=== PATIENT | female | born 1990 | race Caucasian/White ===

== ENCOUNTER 2016-08-13 16:58 | Inpatient (IN) | payer MEDICAID, OTHER, SELFPAY ==
[~2016-08-13] VITALS: Ht 157.5 cm; Wt 70.3 kg
[~2016-08-13 16:58] MED LIST: BUPR15TAXL PO; LEVO50TA5 PO; LEXA1TAB PO; TRAZ50TA4 PO
[2016-08-13 17:43] LABS: MEAN CORPUSCULAR HEMOGLOBIN 28.7 pg (27.0-33.0); MEAN CORPUSCULAR VOLUME 84.3 fl (80.0-96.0); RED CELL DISTRIBUTION WIDTH 13.2 % (11.5-14.5); WHITE BLOOD COUNT 6.2 K/mm3 (4.0-10.0)
[2016-08-13 17:56] LABS: CONTROL LINE HCG INT CTR LINE PRESENT
[2016-08-13 18:12] LABS: ALBUMIN 3.5 GM/DL (3.2-5.2); ALBUMIN/GLOBULIN RATIO 1.03 (1.00-1.93); ALKALINE PHOSPHATASE 73 U/L (45-117); ALT/SGPT 26 U/L (12-78); ANION GAP 9 MEQ/L (8-16); AST/SGOT 20 U/L (15-37); BILIRUBIN,DIRECT < 0.1 MG/DL (0.0-0.2); BILIRUBIN,TOTAL 0.4 MG/DL (0.2-1.0); BLOOD UREA NITROGEN 8 MG/DL (7-18); CALCIUM LEVEL 8.2 MG/DL (8.5-10.1); CARBON DIOXIDE LEVEL 27 MEQ/L (21-32); CHLORIDE LEVEL 105 MEQ/L (98-107); CREATININE FOR GFR 0.96 MG/DL (0.55-1.02); GLOMERULAR FILTRATION RATE > 60.0 (>60); GLUCOSE, FASTING 112 MG/DL (70-105); POTASSIUM SERUM 3.3 MEQ/L (3.5-5.1); SODIUM LEVEL 141 MEQ/L (136-145); TOTAL PROTEIN 6.9 GM/DL (6.4-8.2)
[2016-08-13] MEDS ORDERED: POTASSIUM CHL PWD 20 MEQ PACKET As Ordered ONE (18:48)
[2016-08-13 20:44] LABS: AMPHETAMINES LEVEL URINE POSITIVE (NEGATIVE); BENZODIAZEPINES URINE POSITIVE (NEGATIVE)
[2016-08-13 20:45] LABS: COCAINE METABOLITE URINE POSITIVE (NEGATIVE); CONTROL LINE INT CTR LINE PRESENT; METHADONE URINE NEGATIVE (NEGATIVE); OPIATES URINE POSITIVE (NEGATIVE); TRICYCLIC ANTIDEPRESS URINE NEGATIVE (NEGATIVE)
[2016-08-14] MEDS ORDERED: traZODone 50 MG TAB PO PRN ×2 (02:00→09:30)
[2016-08-14] MEDS ORDERED: MAALOX 30 ML SUSP *UDC PO PRN (02:00)
[2016-08-14] MEDS ORDERED: MOM 30ML SUSPENSION UDC PO PRN (02:00)
[2016-08-14] MEDS ORDERED: EFFE75CA75 PO (03:04)
[2016-08-14] MEDS ORDERED: ZYPR10TA PO (03:04)
[2016-08-14] MEDS ORDERED: EFFE37.527 PO (03:04)
[2016-08-14] MEDS ORDERED: REME15TA PO (03:04)
[2016-08-14] MEDS ORDERED: SYNT50TA PO (03:04)
[2016-08-14] MEDS ORDERED: MIRA0.254 PO (03:04)
[2016-08-14] MEDS ORDERED: BUSP15TA47 PO (03:04)
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
--- NOTE | 2016-08-14 03:06 | EDDOCDS ---
Physician Documentation [facility] Name: Shell Hay Age: 25 yrs Sex: Female : 1990 Arrival Date: 08/13/2016 Time: 16:58 Bed OBSERVATION Private MD: Disposition: 08/13 18:55 I have independently interviewed and examined the patient, and I agree with the br1 investigation, diagnosis and treatment plan as documented by the Resident. Disposition: 08/14/16 02:19 Hospitalization ordered by Don Gibbons for Inpatient Admission. Preliminary diagnosis is Suicide attempt. - Bed requested for Admit. - Status is Inpatient Admission. rw1 - Condition is Stable. - Problem is an ongoing problem. - Symptoms have improved. Historical: - Allergies: Diflucan PO; - Home Meds: 1. Effexor Oral Unknown daily has not taken x 1 week 2. Hydroxyzine Oral Unknown has not taken x 1 week 3. BuSpar Oral Unknown has not taken x 1 week 4. Gabapentin Oral Unknown has not taken x 1 5. Zyprexa Oral Unknown has not taken x 1 week 6. Remeron Oral has not taken x 1 week 7. Mirapex Oral Unknown has not taken x 1 week 8. Levothyroxine Oral Unknown has not taken x 1 week - PMHx: Hypothyroidism; - PSHx: Tonsillectomy; Tubes in ears; - Social history: Smoking status: Patient uses tobacco products, heavy tobacco smoker. Patient uses street drugs, cocaine, heroin, benzos, No barriers to communication noted, The patient speaks fluent Argentine, Speaks appropriately for age. - Family history: Not pertinent. - : The pt / caregiver states he / she is not on anticoagulants. Unable to Verify Home Med List with the patient / caregiver. - Exposure Risk Screening:: None identified. LEGAL ANALYST: 17:08 LMP 06/24/2016 pml Vital Signs: 16:57 BP 122 / 81 (auto/); jul 17:00 BP 114 / 80 (auto/); jul 17:00 Pulse 87 MON; Pulse Ox 99% ; jul 17:01 Pulse 86 MON; Pulse Ox 99% ; jul 17:08 BP 122 / 81; Pulse 83; Resp 18; Pulse Ox 99% on R/A; Weight 68.04 kg / 150 lbs; Height pml 5 ft. 2 in. (157.48 cm); 17:15 BP 106 / 65 (auto/); jul 17:16 Pulse 76 MON; Pulse Ox 98% ; jul 17:30 BP 105 / 74 (auto/); hs1 17:30 Pulse 72 MON; Pulse Ox 96% ; hs1 17:45 BP 101 / 64 (auto/); hs1 17:45 Pulse 74 MON; Pulse Ox 97% ; hs1 18:00 BP 97 / 65 (auto/); hs1 18:00 Pulse 69 MON; Temp 96.8(O); Pulse Ox 97% ; hs1 18:15 BP 95 / 62 (auto/); hs1 18:15 Pulse 71 MON; Pulse Ox 98% ; hs1 18:29 Pulse 71 MON; Pulse Ox 98% ; hs1 18:30 BP 93 / 63 (auto/); hs1 18:45 BP 93 / 55 (auto/); hs1 18:46 Pulse 63 MON; Resp 18; Pulse Ox 98% ; Pain 0/10; hs1 19:00 BP 106 / 77 (auto/); ko2 19:00 Pulse 80 MON; Pulse Ox 96% ; ko2 19:15 BP 88 / 55 (auto/); ko2 19:15 Pulse 78 MON; Pulse Ox 98% ; ko2 19:30 BP 90 / 70 (auto/); ko2 19:30 Pulse 70 MON; Pulse Ox 86% ; ko2 20:00 BP 111 / 64 (auto/); ko2 20:00 Pulse Ox 99% ; ko2 20:15 BP 100 / 55 (auto/); ko2 20:15 Pulse 81 MON; Pulse Ox 100% ; ko2 20:30 BP 101 / 57 (auto/); ko2 20:31 Pulse 92 MON; Pulse Ox 99% ; ko2 20:45 BP 95 / 53 (auto/); ko2 20:46 Pulse 96 MON; Pulse Ox 98% ; ko2 21:00 BP 97 / 50 (auto/); ko2 21:01 Pulse 96 MON; Pulse Ox 98% ; ko2 21:14 Pulse 94 MON; Pulse Ox 98% ; ko2 21:15 BP 139 / 70 (auto/); ko2 21:32 BP 112 / 55 (auto/); ko2 21:33 Pulse 85 MON; Pulse Ox 97% ; ko2 21:45 BP 96 / 53 (auto/); ko2 21:45 Pulse 81 MON; Pulse Ox 99% ; ko2 22:00 BP 90 / 51 (auto/); ko2 22:00 Pulse 90 MON; Pulse Ox 97% ; ko2 22:15 BP 94 / 52 (auto/); ko2 22:16 Pulse 96 MON; Pulse Ox 97% ; ko2 22:30 BP 93 / 50 (auto/); ko2 22:31 Pulse 93 MON; Pulse Ox 97% ; ko2 22:45 BP 96 / 52 (auto/); ko2 22:45 Pulse 92 MON; Pulse Ox 97% ; ko2 23:00 BP 84 / 52 (auto/); ko2 23:01 Pulse 87 MON; Pulse Ox 96% ; ko2 23:15 BP 93 / 51 (auto/); ko2 23:16 Pulse 84 MON; Pulse Ox 97% ; ko2 23:30 BP 93 / 51 (auto/); ko2 23:30 Pulse 90 MON; Pulse Ox 97% ; ko2 23:45 BP 90 / 52 (auto/); ko2 23:45 Pulse 90 MON; Pulse Ox 96% ; ko2 08/14 00:00 BP 88 / 53 (auto/); ko2 00:00 Pulse 85 MON; Pulse Ox 96% ; ko2 00:28 Pulse 83 MON; ko2 00:29 BP 100 / 59 (auto/); ko2 02:51 BP 115 / 65 Sitting; Pulse 89; Resp 16; Temp 97.7(O); Pulse Ox 98% on R/A; Pain 0/10; rw1 08/13 17:08 Body Mass Index 27.44 (68.04 kg, 157.48 cm) pml MDM: 08/13 17:04 Consult PFS/PSA/Office Admin ordered. br1 17:04 Consult PFS/PSA/Office Admin: Patient's case requires discussion with on-call br1 Psychiatrist ordered. 17:04 PSA/PFS to call Nursing Ticket Sorter, to [place] data [place] if patient br1 involuntarily admitted or transferred for SI or HI ordered. 17:04 Wire Drawing Setter/Pulse Ox/q 15 min VS ordered. br1 17:04 Confirm accurate psychiatric medication list and times of last dosage ordered. br1 17:04 Detain Pt Until Medically/PFS Cleared ordered. br1 17:04 IV Saline Lock ordered. br1 17:05 Acetaminophen Level Ordered. EDMS 17:05 Basic Metabolic Profile Ordered. EDMS 17:05 Complete Blood Count Ordered. EDMS 17:05 Drug Eval Toxicology ED Only Ordered. EDMS 17:05 Ethyl Alcohol (ethanol) Ordered. EDMS 17:05 HCG,Serum Qualitative Ordered. EDMS 17:05 Liver Profile Ordered. EDMS 17:05 Salicylate Level Ordered. EDMS 17:05 Thyroid Stimulating Hormone Ordered. EDMS 17:05 ECG WITH READING ER PHYS+CARDIAG ordered. EDMS 17:43 Call Poison Control ordered. br1 17:57 Complete Blood Count Reviewed. jo4 18:07 HCG,Serum Qualitative Reviewed. jo4 18:14 Acetaminophen Level Reviewed. jo4 18:14 Basic Metabolic Profile Reviewed. jo4 18:14 Salicylate Level Reviewed. jo4 18:14 Thyroid Stimulating Hormone Reviewed. jo4 18:14 Ethyl Alcohol (ethanol) Reviewed. jo4 18:14 HCG,Serum Qualitative Reviewed. jo4 18:14 Liver Profile Reviewed. jo4 18:18 Potassium Chloride Packet 40 mEq PO once ordered. jo4 18:18 NS 0.9% 1000 ml IV at bolus once ordered. jo4 19:18 Transition of care: After a detail discussion of the patient's case, care is br1 transferred to ED Physician, Dr. Li. 22:42 [facility] Payment Agreement was scanned into [employer] and attached to record. jp5 22:42 Financial registration complete. jp5 22:50 Drug Eval Toxicology ED Only Reviewed. cs11 08/14 01:11 [facility] Legal paperwork was scanned into [employer] and attached to record. jfb 01:46 Consult PFS/PSA/Office Admin complete. jfb 01:46 Consult PFS/PSA/Office Admin: Patient's case requires discussion with on-call jfb Psychiatrist complete. 01:46 PSA/PFS to call Nursing Ticket Sorter, to [place] if patient jfb involuntarily admitted or transferred for SI or HI complete. 02:06 Admit to [facility]: ordered. EDMS 02:06 REGULAR DIET ordered. EDMS 02:13 BED REQUEST+ADM ordered. EDMS 02:50 [facility] Legal paperwork was scanned into [employer] and attached to record. rw1 Administered Medications: 08/13 18:52 Drug: NS 0.9% 1000 ml [sodium chloride 0.9 % intravenous solution] Route: IV; Rate: hs1 bolus; Site: left forearm; 08/14 01:49 Follow up: IV Status: Completed infusion rw1 08/13 18:53 Drug: Potassium Chloride 40 mEq [potassium chloride 20 mEq oral packet (2 packets)] hs1 Route: PO; 08/14 01:50 Follow up: Response: No Adverse Reaction rw1 Signatures: Dispatcher MedHost EDUsha Adams RN RN Rudy Wing,GARAGE DOOR TECHNICIAN GARAGE DOOR TECHNICIAN rw1 Ric Alcaraz MD MD br1 Radha Jacobs PSA PSA Bambi FarrellRN RN Brodie Lynn DO DO cs11 Jennifer Adamson jp5 Tish Pickett DO DO jo4 Kristi Alcantara RN hs1 The chart was reviewed and I authenticate all verbal orders and agree with the evaluation and treatment provided.Attachments: 08/13 22:42 [facility] Payment Agreement jp5 MTDD
[2016-08-14 03:11] VITALS: BP 100/58
--- NOTE | 2016-08-14 08:13 | ECGEPIP ---
Stationary ECG Study [facility] - ED Test Date: 2016-08-13 Pat Name: KALI OMALLEY Department: Room: [place] [address] Gender: F Sales Operations Specialist: nyla : 1990 Requested By: SARA Lange Order Number: [id number] Reading MD: Carmela Pires Measurements Intervals [place] Rate: 59 P: 16 [place]: 130 QRS: 80 QRSD: 88 T: 35 QT: 412 QTc: 410 Interpretive Statements SINUS BRADYCARDIA DECREASED RATE 02/20/14 Electronically Signed On 08-14-2016 8:12:53 EST by Carmela Pires
[2016-08-14] MEDS: NICOTINE 21MG/24HR 1 EA TRANSDERMAL TD SCH (09:00)
[2016-08-14] MEDS ORDERED: CitaloPRAM (CeleXA) 10 MG TABLET PO ONE (10:00)
[2016-08-14] MEDS: METHADONE 10 MG TAB (S0109) PO SCH ×2 (10:01→21:00)
[2016-08-14] MEDS: chlordiazePOXIDE 25 MG CAP PO SCH ×3 (10:01→21:00)
[2016-08-14] MEDS: VENLAFAXINE **XR** 37.5 MG CAPSULE PO SCH (12:49)
[2016-08-14 18:00] VITALS: BP 114/59
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
[2016-08-15 06:06] VITALS: BP 92/50
[2016-08-15] MEDS: GABAPENTIN 300 MG CAP PO SCH ×3 (09:00→21:35)
[2016-08-15] MEDS ORDERED: CitaloPRAM (CeleXA) 20 MG TAB PO SCH (09:00)
[2016-08-15] MEDS: NICOTINE 21MG/24HR 1 EA TRANSDERMAL TD SCH (09:00)
[2016-08-15] MEDS: METHADONE 10 MG TAB (S0109) PO SCH ×2 (09:38→21:37)
[2016-08-15] MEDS: chlordiazePOXIDE 25 MG CAP PO SCH ×3 (09:38→21:35)
[2016-08-15] MEDS: VENLAFAXINE **XR** 37.5 MG CAPSULE PO SCH (09:38)
[2016-08-15] MEDS: busPIRone 10 MG TAB PO SCH ×2 (14:11→21:35)
[2016-08-15 18:00] VITALS: BP 100/52
[2016-08-15] MEDS: MIRTAZAPINE 15 MG TAB PO SCH (21:35)
[2016-08-15] MEDS: OLANZapine 10 MG TAB PO SCH (21:35)
--- NOTE | 2016-08-16 04:05 | EDDOCDS ---
Physician Documentation [facility] Name: Shell Hay Age: 25 yrs Sex: Female : 1990 Arrival Date: 08/13/2016 Time: 16:58 Bed OBSERVATION Private MD: Disposition: 08/13 18:55 I have independently interviewed and examined the patient, and I agree with the br1 investigation, diagnosis and treatment plan as documented by the Resident. Disposition: 08/14/16 02:19 Hospitalization ordered by Don Gibbons for Inpatient Admission. Preliminary diagnosis is Suicide attempt. - Bed requested for Admit. - Status is Inpatient Admission. rw1 - Condition is Stable. - Problem is an ongoing problem. - Symptoms have improved. Historical: - Allergies: Diflucan PO; - Home Meds: 1. Effexor Oral Unknown daily has not taken x 1 week 2. Hydroxyzine Oral Unknown has not taken x 1 week 3. BuSpar Oral Unknown has not taken x 1 week 4. Gabapentin Oral Unknown has not taken x 1 5. Zyprexa Oral Unknown has not taken x 1 week 6. Remeron Oral has not taken x 1 week 7. Mirapex Oral Unknown has not taken x 1 week 8. Levothyroxine Oral Unknown has not taken x 1 week - PMHx: Hypothyroidism; - PSHx: Tonsillectomy; Tubes in ears; - Social history: Smoking status: Patient uses tobacco products, heavy tobacco smoker. Patient uses street drugs, cocaine, heroin, benzos, No barriers to communication noted, The patient speaks fluent Canadian, Speaks appropriately for age. - Family history: Not pertinent. - : The pt / caregiver states he / she is not on anticoagulants. Unable to Verify Home Med List with the patient / caregiver. - Exposure Risk Screening:: None identified. CO FOUNDER AND CHAIRMAN: 17:08 LMP 06/24/2016 pml Vital Signs: 16:57 BP 122 / 81 (auto/); jul 17:00 BP 114 / 80 (auto/); jul 17:00 Pulse 87 MON; Pulse Ox 99% ; jul 17:01 Pulse 86 MON; Pulse Ox 99% ; jul 17:08 BP 122 / 81; Pulse 83; Resp 18; Pulse Ox 99% on R/A; Weight 68.04 kg / 150 lbs; Height pml 5 ft. 2 in. (157.48 cm); 17:15 BP 106 / 65 (auto/); jul 17:16 Pulse 76 MON; Pulse Ox 98% ; jul 17:30 BP 105 / 74 (auto/); hs1 17:30 Pulse 72 MON; Pulse Ox 96% ; hs1 17:45 BP 101 / 64 (auto/); hs1 17:45 Pulse 74 MON; Pulse Ox 97% ; hs1 18:00 BP 97 / 65 (auto/); hs1 18:00 Pulse 69 MON; Temp 96.8(O); Pulse Ox 97% ; hs1 18:15 BP 95 / 62 (auto/); hs1 18:15 Pulse 71 MON; Pulse Ox 98% ; hs1 18:29 Pulse 71 MON; Pulse Ox 98% ; hs1 18:30 BP 93 / 63 (auto/); hs1 18:45 BP 93 / 55 (auto/); hs1 18:46 Pulse 63 MON; Resp 18; Pulse Ox 98% ; Pain 0/10; hs1 19:00 BP 106 / 77 (auto/); ko2 19:00 Pulse 80 MON; Pulse Ox 96% ; ko2 19:15 BP 88 / 55 (auto/); ko2 19:15 Pulse 78 MON; Pulse Ox 98% ; ko2 19:30 BP 90 / 70 (auto/); ko2 19:30 Pulse 70 MON; Pulse Ox 86% ; ko2 20:00 BP 111 / 64 (auto/); ko2 20:00 Pulse Ox 99% ; ko2 20:15 BP 100 / 55 (auto/); ko2 20:15 Pulse 81 MON; Pulse Ox 100% ; ko2 20:30 BP 101 / 57 (auto/); ko2 20:31 Pulse 92 MON; Pulse Ox 99% ; ko2 20:45 BP 95 / 53 (auto/); ko2 20:46 Pulse 96 MON; Pulse Ox 98% ; ko2 21:00 BP 97 / 50 (auto/); ko2 21:01 Pulse 96 MON; Pulse Ox 98% ; ko2 21:14 Pulse 94 MON; Pulse Ox 98% ; ko2 21:15 BP 139 / 70 (auto/); ko2 21:32 BP 112 / 55 (auto/); ko2 21:33 Pulse 85 MON; Pulse Ox 97% ; ko2 21:45 BP 96 / 53 (auto/); ko2 21:45 Pulse 81 MON; Pulse Ox 99% ; ko2 22:00 BP 90 / 51 (auto/); ko2 22:00 Pulse 90 MON; Pulse Ox 97% ; ko2 22:15 BP 94 / 52 (auto/); ko2 22:16 Pulse 96 MON; Pulse Ox 97% ; ko2 22:30 BP 93 / 50 (auto/); ko2 22:31 Pulse 93 MON; Pulse Ox 97% ; ko2 22:45 BP 96 / 52 (auto/); ko2 22:45 Pulse 92 MON; Pulse Ox 97% ; ko2 23:00 BP 84 / 52 (auto/); ko2 23:01 Pulse 87 MON; Pulse Ox 96% ; ko2 23:15 BP 93 / 51 (auto/); ko2 23:16 Pulse 84 MON; Pulse Ox 97% ; ko2 23:30 BP 93 / 51 (auto/); ko2 23:30 Pulse 90 MON; Pulse Ox 97% ; ko2 23:45 BP 90 / 52 (auto/); ko2 23:45 Pulse 90 MON; Pulse Ox 96% ; ko2 08/14 00:00 BP 88 / 53 (auto/); ko2 00:00 Pulse 85 MON; Pulse Ox 96% ; ko2 00:28 Pulse 83 MON; ko2 00:29 BP 100 / 59 (auto/); ko2 02:51 BP 115 / 65 Sitting; Pulse 89; Resp 16; Temp 97.7(O); Pulse Ox 98% on R/A; Pain 0/10; rw1 08/13 17:08 Body Mass Index 27.44 (68.04 kg, 157.48 cm) pml MDM: 08/13 17:04 Consult PFS/PSA/Patternmaker Plaster ordered. br1 17:04 Consult PFS/PSA/Patternmaker Plaster: Patient's case requires discussion with on-call br1 Psychiatrist ordered. 17:04 PSA/PFS to call Nursing Turfgrass Management Professor, to enter [place] data [place] if patient br1 involuntarily admitted or transferred for SI or HI ordered. 17:04 Commercial Production Editor/Pulse Ox/q 15 min VS ordered. br1 17:04 Confirm accurate psychiatric medication list and times of last dosage ordered. br1 17:04 Detain Pt Until Medically/PFS Cleared ordered. br1 17:04 IV Saline Lock ordered. br1 17:05 Acetaminophen Level Ordered. EDMS 17:05 Basic Metabolic Profile Ordered. EDMS 17:05 Complete Blood Count Ordered. EDMS 17:05 Drug Eval Toxicology ED Only Ordered. EDMS 17:05 Ethyl Alcohol (ethanol) Ordered. EDMS 17:05 HCG,Serum Qualitative Ordered. EDMS 17:05 Liver Profile Ordered. EDMS 17:05 Salicylate Level Ordered. EDMS 17:05 Thyroid Stimulating Hormone Ordered. EDMS 17:05 ECG WITH READING ER PHYS+CARDIAG ordered. EDMS 17:43 Call Poison Control ordered. br1 17:57 Complete Blood Count Reviewed. jo4 18:07 HCG,Serum Qualitative Reviewed. jo4 18:14 Acetaminophen Level Reviewed. jo4 18:14 Basic Metabolic Profile Reviewed. jo4 18:14 Salicylate Level Reviewed. jo4 18:14 Thyroid Stimulating Hormone Reviewed. jo4 18:14 Ethyl Alcohol (ethanol) Reviewed. jo4 18:14 HCG,Serum Qualitative Reviewed. jo4 18:14 Liver Profile Reviewed. jo4 18:18 Potassium Chloride Packet 40 mEq PO once ordered. jo4 18:18 NS 0.9% 1000 ml IV at bolus once ordered. jo4 19:18 Transition of care: After a detail discussion of the patient's case, care is br1 transferred to ED Physician, Dr. Li. 22:42 [facility] Payment Agreement was scanned into [employer] and attached to record. jp5 22:42 Financial registration complete. jp5 22:50 Drug Eval Toxicology ED Only Reviewed. cs11 08/14 01:11 [facility] Legal paperwork was scanned into [employer] and attached to record. jfb 01:46 Consult PFS/PSA/Patternmaker Plaster complete. jfb 01:46 Consult PFS/PSA/Patternmaker Plaster: Patient's case requires discussion with on-call jfb Psychiatrist complete. 01:46 PSA/PFS to call Nursing [place] Management Professor, to enter [place] if patient jfb involuntarily admitted or transferred for SI or HI complete. 02:06 Admit to IMHU: ordered. EDMS 02:06 REGULAR DIET ordered. EDMS 02:13 BED REQUEST+ADM ordered. EDMS 02:50 [facility] Legal paperwork was scanned into [employer] and attached to record. rw1 12:52 T-Sheet-- Draft Copy was scanned into [employer] and attached to record. gb 12:52 ECG/EKG was scanned into MEDHOST and attached to record. gb Administered Medications: 08/13 18:52 Drug: NS 0.9% 1000 ml [sodium chloride 0.9 % intravenous solution] Route: IV; Rate: hs1 bolus; Site: left forearm; 08/14 01:49 Follow up: IV Status: Completed infusion rw1 08/13 18:53 Drug: Potassium Chloride 40 mEq [potassium chloride 20 mEq oral packet (2 packets)] hs1 Route: PO; 08/14 01:50 Follow up: Response: No Adverse Reaction rw1 Signatures: Dispatcher MedHost EDMS Usha Aguilera, RN RN Perla Inman, Reg Reg gb Workrodriguez,Rudy,BOOT REPAIRER BOOT REPAIRER rw1 Ric Alcraaz MD MD br1 Radha Jacobs PSA PSA jfb Quay, PaulinaRN RN Brodie Lynn, DO cs11 Jennifer Adamson jp5 Tish Pickett, DO DO jo4 Kristi Alcantara RN hs1 The chart was reviewed and I authenticate all verbal orders and agree with the evaluation and treatment provided.Attachments: 08/13 22:42 [facility] Payment Agreement jp5 12:52 T-Sheet-- Draft Copy gb 12:52 ECG/EKG Chart Complete MTDD
--- NOTE | 2016-08-16 04:05 | EDDOCDS ---
Physician Documentation [facility] Name: Shell Hay Age: 25 yrs Sex: Female : 1990 Arrival Date: 08/13/2016 Time: 16:58 Bed OBSERVATION Private MD: Disposition: 08/13 18:55 I have independently interviewed and examined the patient, and I agree with the br1 investigation, diagnosis and treatment plan as documented by the Resident. Disposition: 08/14/16 02:19 Hospitalization ordered by Don Gibbons for Inpatient Admission. Preliminary diagnosis is Suicide attempt. - Bed requested for Admit. - Status is Inpatient Admission. rw1 - Condition is Stable. - Problem is an ongoing problem. - Symptoms have improved. Historical: - Allergies: Diflucan PO; - Home Meds: 1. Effexor Oral Unknown daily has not taken x 1 week 2. Hydroxyzine Oral Unknown has not taken x 1 week 3. BuSpar Oral Unknown has not taken x 1 week 4. Gabapentin Oral Unknown has not taken x 1 5. Zyprexa Oral Unknown has not taken x 1 week 6. Remeron Oral has not taken x 1 week 7. Mirapex Oral Unknown has not taken x 1 week 8. Levothyroxine Oral Unknown has not taken x 1 week - PMHx: Hypothyroidism; - PSHx: Tonsillectomy; Tubes in ears; - Social history: Smoking status: Patient uses tobacco products, heavy tobacco smoker. Patient uses street drugs, cocaine, heroin, benzos, No barriers to communication noted, The patient speaks fluent [place], Speaks appropriately for age. - Family history: Not pertinent. - : The pt / caregiver states he / she is not on anticoagulants. Unable to Verify Home Med List with the patient / caregiver. - Exposure Risk Screening:: None identified. 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 2 in. (157.48 cm); 17:15 BP 106 / 65 (auto/); jul 17:16 Pulse 76 MON; Pulse Ox 98% ; jul 17:30 BP 105 / 74 (auto/); hs1 17:30 Pulse 72 MON; Pulse Ox 96% ; hs1 17:45 BP 101 / 64 (auto/); hs1 17:45 Pulse 74 MON; Pulse Ox 97% ; hs1 18:00 BP 97 / 65 (auto/); hs1 18:00 Pulse 69 MON; Temp 96.8(O); Pulse Ox 97% ; hs1 18:15 BP 95 / 62 (auto/); hs1 18:15 Pulse 71 MON; Pulse Ox 98% ; hs1 18:29 Pulse 71 MON; Pulse Ox 98% ; hs1 18:30 BP 93 / 63 (auto/); hs1 18:45 BP 93 / 55 (auto/); hs1 18:46 Pulse 63 MON; Resp 18; Pulse Ox 98% ; Pain 0/10; hs1 19:00 BP 106 / 77 (auto/); ko2 19:00 Pulse 80 MON; Pulse Ox 96% ; ko2 19:15 BP 88 / 55 (auto/); ko2 19:15 Pulse 78 MON; Pulse Ox 98% ; ko2 19:30 BP 90 / 70 (auto/); ko2 19:30 Pulse 70 MON; Pulse Ox 86% ; ko2 20:00 BP 111 / 64 (auto/); ko2 20:00 Pulse Ox 99% ; ko2 20:15 BP 100 / 55 (auto/); ko2 20:15 Pulse 81 MON; Pulse Ox 100% ; ko2 20:30 BP 101 / 57 (auto/); ko2 20:31 Pulse 92 MON; Pulse Ox 99% ; ko2 20:45 BP 95 / 53 (auto/); ko2 20:46 Pulse 96 MON; Pulse Ox 98% ; ko2 21:00 BP 97 / 50 (auto/); ko2 21:01 Pulse 96 MON; Pulse Ox 98% ; ko2 21:14 Pulse 94 MON; Pulse Ox 98% ; ko2 21:15 BP 139 / 70 (auto/); ko2 21:32 BP 112 / 55 (auto/); ko2 21:33 Pulse 85 MON; Pulse Ox 97% ; ko2 21:45 BP 96 / 53 (auto/); ko2 21:45 Pulse 81 MON; Pulse Ox 99% ; ko2 22:00 BP 90 / 51 (auto/); ko2 22:00 Pulse 90 MON; Pulse Ox 97% ; ko2 22:15 BP 94 / 52 (auto/); ko2 22:16 Pulse 96 MON; Pulse Ox 97% ; ko2 22:30 BP 93 / 50 (auto/); ko2 22:31 Pulse 93 MON; Pulse Ox 97% ; ko2 22:45 BP 96 / 52 (auto/); ko2 22:45 Pulse 92 MON; Pulse Ox 97% ; ko2 23:00 BP 84 / 52 (auto/); ko2 23:01 Pulse 87 MON; Pulse Ox 96% ; ko2 23:15 BP 93 / 51 (auto/); ko2 23:16 Pulse 84 MON; Pulse Ox 97% ; ko2 23:30 BP 93 / 51 (auto/); ko2 23:30 Pulse 90 MON; Pulse Ox 97% ; ko2 23:45 BP 90 / 52 (auto/); ko2 23:45 Pulse 90 MON; Pulse Ox 96% ; ko2 08/14 00:00 BP 88 / 53 (auto/); ko2 00:00 Pulse 85 MON; Pulse Ox 96% ; ko2 00:28 Pulse 83 MON; ko2 00:29 BP 100 / 59 (auto/); ko2 02:51 BP 115 / 65 Sitting; Pulse 89; Resp 16; Temp 97.7(O); Pulse Ox 98% on R/A; Pain 0/10; rw1 08/13 17:08 Body Mass Index 27.44 (68.04 kg, 157.48 cm) pml MDM: 08/13 17:04 Consult PFS/PSA/Poultry Vaccinator ordered. br1 17:04 Consult PFS/PSA/Poultry Vaccinator: Patient's case requires discussion with on-call br1 Psychiatrist ordered. 17:04 PSA/PFS to call Nursing [employer], to enter patient data on [place] Safe Act if patient br1 involuntarily admitted or transferred for SI or HI ordered. 17:04 Clinical Cytogenetics Director/Pulse Ox/q 15 min VS ordered. br1 17:04 Confirm accurate psychiatric medication list and times of last dosage ordered. br1 17:04 Detain Pt Until Medically/PFS Cleared ordered. br1 17:04 IV Saline Lock ordered. br1 17:05 Acetaminophen Level Ordered. EDMS 17:05 Basic Metabolic Profile Ordered. EDMS 17:05 Complete Blood Count Ordered. EDMS 17:05 Drug Eval Toxicology ED Only Ordered. EDMS 17:05 Ethyl Alcohol (ethanol) Ordered. EDMS 17:05 HCG,Serum Qualitative Ordered. EDMS 17:05 Liver Profile Ordered. EDMS 17:05 Salicylate Level Ordered. EDMS 17:05 Thyroid Stimulating Hormone Ordered. EDMS 17:05 ECG WITH READING ER PHYS+CARDIAG ordered. EDMS 17:43 Call Poison Control ordered. br1 17:57 Complete Blood Count Reviewed. jo4 18:07 HCG,Serum Qualitative Reviewed. jo4 18:14 Acetaminophen Level Reviewed. jo4 18:14 Basic Metabolic Profile Reviewed. jo4 18:14 Salicylate Level Reviewed. jo4 18:14 Thyroid Stimulating Hormone Reviewed. jo4 18:14 Ethyl Alcohol (ethanol) Reviewed. jo4 18:14 HCG,Serum Qualitative Reviewed. jo4 18:14 Liver Profile Reviewed. jo4 18:18 Potassium Chloride Packet 40 mEq PO once ordered. jo4 18:18 NS 0.9% 1000 ml IV at bolus once ordered. jo4 19:18 Transition of care: After a detail discussion of the patient's case, care is br1 transferred to ED Physician, Dr. Li. 22:42 [facility] Payment Agreement was scanned into [employer] and attached to record. jp5 22:42 Financial registration complete. jp5 22:50 Drug Eval Toxicology ED Only Reviewed. cs11 08/14 01:11 [facility] Legal paperwork was scanned into [employer] and attached to record. jfb 01:46 Consult PFS/PSA/Poultry Vaccinator complete. jfb 01:46 Consult PFS/PSA/Poultry Vaccinator: Patient's case requires discussion with on-call jfb Psychiatrist complete. 01:46 PSA/PFS to call Nursing [employer], to [place] data [place] if patient jfb involuntarily admitted or transferred for SI or HI complete. 02:06 Admit to [facility]: ordered. EDMS 02:06 REGULAR DIET ordered. EDMS 02:13 BED REQUEST+ADM ordered. EDMS 02:50 [facility] Legal paperwork was scanned into [employer] and attached to record. rw1 12:52 T-Sheet-- Draft Copy was scanned into [employer] and attached to record. gb 12:52 ECG/EKG was scanned into [employer] and attached to record. gb Administered Medications: 08/13 18:52 Drug: NS 0.9% 1000 ml [sodium chloride 0.9 % intravenous solution] Route: IV; Rate: hs1 bolus; Site: left forearm; 08/14 01:49 Follow up: IV Status: Completed infusion rw1 08/13 18:53 Drug: Potassium Chloride 40 mEq [potassium chloride 20 mEq oral packet (2 packets)] hs1 Route: PO; 08/14 01:50 Follow up: Response: No Adverse Reaction rw1 Signatures: Dispatcher [employer] EDMS Usha Aguilera, RN RN Perla Inman, Reg Reg gb Workrodriguez,Rudy,BRICK DROPPER BRICK DROPPER rw1 Ric Alcaraz MD MD br1 Radha Jacobs PSA PSA jfb Quay, PaulinaRN RN Brodie Lynn, DO cs11 Jennifer Adamson jp5 Tish Pickett, DO DO jo4 Kristi Alcantara RN hs1 The chart was reviewed and I authenticate all verbal orders and agree with the evaluation and treatment provided.Attachments: 08/13 22:42 [facility] jp5 12:52 T-Sheet-- Draft Copy gb 12:52 ECG/EKG Chart Complete MTDD
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
[2016-08-16 06:00] VITALS: BP 117/57
--- NOTE | 2016-08-16 06:14 | IPN ---
DATE OF VISIT: 08/15/2016 25-year-old female with history of depression and opiate dependency admitted after an overdose of heroin and Xanax. SUBJECTIVE: "I would like to be placed on my psychiatric medication." OBJECTIVE: The patient is improving from the opiate withdrawal point of view. The patient continues depressed, anxious, and labile. The patient does not have psychotic symptoms. She has stated that she was doing much better when she was on Zyprexa and Remeron. MENTAL STATUS EXAMINATION: The patient is dressed in [facility]. The patient has fair eye contact. Speech is pressured, mood is depressed, anxious. Affect is labile. She is oriented to time, place and person, and situation. The patient does not have auditory or visual hallucinations, no delusions. Memory is fair. The patient is stressed. Associations are intact. Thinking is logical. The patient reports intermittent suicidal thoughts, no homicidal ideation. Insight and judgment is limited. ASSESSMENT: AXIS 1: Unspecified depressive disorder, rule out major depression. 2. Opiate dependency. Substance abuse mood disorder. AXIS II: Deferred. AXIS III: Status post overdose on heroin and Xanax. PLAN: 1. Increase Effexor to 75 mg by mouth every morning. 2. Start olanzapine 10 mg by mouth nightly. 3. Start Remeron 15 mg by mouth nightly. 4. Start Neurontin 300 mg by mouth three times a day. 5. Start BuSpar 10 mg by mouth twice a day. 6. Decrease methadone to 10 mg by mouth every morning and 20 mg by mouth nightly. 7. Discontinue Celexa.
[2016-08-16] MEDS: LEVOTHYROXINE 0.05 MG TAB (50 MCG) PO SCH (06:17)
[2016-08-16] MEDS: NICOTINE 21MG/24HR 1 EA TRANSDERMAL TD SCH (08:12)
[2016-08-16] MEDS: GABAPENTIN 300 MG CAP PO SCH ×3 (08:16→20:16)
[2016-08-16] MEDS: busPIRone 10 MG TAB PO SCH ×2 (08:16→20:15)
[2016-08-16] MEDS: METHADONE 10 MG TAB (S0109) PO SCH ×2 (08:16→20:18)
[2016-08-16] MEDS: chlordiazePOXIDE 25 MG CAP PO SCH ×3 (08:17→20:16)
[2016-08-16] MEDS: VENLAFAXINE **XR** 75MG CAPSULE PO SCH (08:17)
--- NOTE | 2016-08-16 09:21 | HPE ---
DATE OF ADMISSION: 08/14/2016 Please refer to the psychiatric history and evaluation for further details on this admission. This examination and history is intended for medical issues which may need treatment, followup or consultation on this 25-year-old female. ALLERGIES: - DIFLUCAN PRIMARY CARE PROVIDER: None. PAST MEDICAL HISTORY: 1. Hypothyroidism. 2. Substance abuse. 3. Depression. 4. Anxiety. PAST SURGICAL HISTORY: 1. Tonsillectomy. 2. Myringotomy. SOCIAL HISTORY: The patient is from [place]. She was asked to leave a rehabilitation in [place] approximately a week ago. She did not get any of her medications filled so she has not been on her regular medications for approximately one week. She smokes approximately a pack of cigarettes per day. Denies any alcohol use. Has history of polysubstance abuse to include IV heroin, amphetamines, benzodiazepines, cocaine. LABORATORY STUDIES: CBC was normal. Sodium 141. Potassium 3.3. Chloride 015. CO2 27. TSH 0.327. Recheck ordered. EKG showed sinus bradycardia at 59. Urine was positive for opiates, amphetamines, benzodiazepines, cocaine. HOME MEDICATIONS (though she has not been on them for a week): - BuSpar 15 mg by mouth daily - levothyroxine 50 mcg by mouth daily - Remeron 7.5 mg by mouth at bedtime - Zyprexa 10 mg by mouth daily - Mirapex 0.25 mg by mouth at bedtime - Effexor 37.5 mg in the a.m. as well as 75 mg twice a day REVIEW OF SYSTEMS: Ten systems was done and was remarkable only for the fact that she has scabs all over her skin. She picks at them. She has them on her face, neck, arms, thighs, back. No other issues. PHYSICAL EXAMINATION: Vital signs stable. 25-year-old cooperative female in no acute distress. Height 62 inches. Weight 70.3 kg. Body mass index (BMI) 23. Blood pressure 100/58. Pulse 77. Respirations 16. Temperature 98. The patient is alert and oriented times three. Pupils equal and reactive to light. Extraocular movements intact. Cornea and sclera clear. Conjunctiva normal. No facial asymmetry. Pharynx, tongue and gums pink and moist. Tongue is midline. Neck is supple, without lymphadenopathy. No thyromegaly. No goiter. Carotids 2+, without bruit. Chest clear to auscultation, without wheeze or retraction. Heart is regular. Abdomen benign. Bowel sounds positive. Genitourinary ()/Rectal: Not done. Extremities show equal strength. Full range of motion. No cyanosis, clubbing or edema. Peripheral pulses equal and palpable bilaterally. Skin is warm and dry. The patient has numerous small sores that she has on her face, arms, thighs and back. She states she picks at them and has nervous picking. Gait is steady. IMPRESSION AND PLAN: 1. Psychiatric. Plan per psychiatry. 2. Monitor for withdrawal. 3. Bactroban cream to sores on face, neck, arms, legs and back twice a day.
[2016-08-16 11:37] LABS: HEPATITIS B SURFACE ANTIBODY POSITIVE (POSITIVE)
[2016-08-16 12:51] LABS: CONTROL LINE INT CTR LINE PRESENT; HIV SCRN NEGATIVE (NEGATIVE); HIV SCRN1 NEGATIVE (NEGATIVE)
[2016-08-16 18:00] VITALS: BP_SYST 101; BP_SYST 108; BP_DIAS 57; BP_DIAS 58
[2016-08-16 20:00] VITALS: BP 112/60
[2016-08-16] MEDS: MIRTAZAPINE 15 MG TAB PO SCH (20:15)
[2016-08-16] MEDS: OLANZapine 10 MG TAB PO SCH (20:16)
--- NOTE | 2016-08-17 00:55 | IPNPDOC ---
[facility] Progress Note Progress Note DATE OF SERVICE: 08/16/16 SUBJECTIVE: Patient reports improving symptoms of opioid w/d. She reports depression at an intensity of 7-8/10. She reports fair sleep and appetite. She currently denies SI/HI and AH/VH. No med s/e reported. MENTAL STATUS EXAMINATION: The patient is dressed in home clothing, in NAD. speech: spontaneous, RRR. Mood is depressed. Affect is depressed. No evidence of delusions or hallucinations. Short and superintendent terminal memory are intact. Patient is alert and oriented. Associations are intact. Thinking is linear. Thought content is appropriate. The patient is denying suicidal or homicidal ideations during the interview. Insight and judgment is limited. ASSESSMENT: 1. Opioid use d/o 2. Alcohol use d/o 3. Depressive disorder, unspecified 4. r/o Bipolar 2 d/o Plan: - Continue current prescribed psychotropic med regimen. - Continue medical management, individual and group therapy. - On discharge, patient to be picked up by authorities for probation / parole violations. Vital Signs/I&O Vital Signs Date Time Temp Pulse Resp B/P Pulse Ox O2 Delivery O2 Flow Rate FiO2 08/16/16 20:18 88 18 08/16/16 18:00 97.6 108/58 Current Medications Current Medications Acetaminophen (Tylenol) 650 mg Q6HP PRN PO HEADACHE or DISCOMFORT; Start at 02:00; Stop 09/13/16 at 01:59 Al Hydrox/Mg Hydrox/Simethicone (Mylanta) 30 ml Q4HP PRN PO HEARTBURN/ INDIGESTION Last administered on 08/15/16 10:12; Start 08/14/16 at 02:00; Stop 09/13/16 at 01:59 Buspirone HCl (Buspar) 10 mg BID PO Last administered on 08/16/16 20:15; Start 08/15/16 at 09:00; Stop 09/14/16 at 08:59 Chlordiazepoxide (Librium) 25 mg TID PO Last administered on 08/16/16 20:16; Start 08/14/16 at 09:00; Stop 08/21/16 at 08:59 Citalopram Hydrobromide (CeleXA) 20 mg QAM PO ; Start 08/15/16 at 09:00; Stop at 09:00; Status DC Gabapentin (Neurontin) 300 mg TID PO Last administered on 08/16/16 20:16; Start 08/15/16 at 09:00; Stop 09/14/16 at 08:59 Home Med (Med Rec Complete!) ASDIRECTED XX ; Start 08/14/16 at 03:15; Stop at 03:32; Status DC Hydroxyzine HCl (Atarax) 50 mg Q6HP PRN PO ANXIETY; Start 08/14/16 at 02:00; Stop 09/13/16 at 01:59 Levothyroxine Sodium (Synthroid) 0.05 mg QAM@06 PO Last administered on 06:17; Start 08/16/16 at 06:00; Stop 09/15/16 at 05:59 Magnesium Hydroxide (Milk Of Magnesia) 30 ml DAILYPRN PRN PO CONSTIPATION; Start 08/14/16 at 02:00; Stop 09/13/16 at 01:59 Methadone HCl (Dolophine) 10 mg QAM PO Last administered on 08/16/16 08:16; Start 08/16/16 at 09:00; Stop 08/23/16 at 08:59 Methadone HCl (Dolophine) 20 mg BID PO Last administered on 08/15/16 09:38; Start 08/14/16 at 09:00; Stop 08/15/16 at 12:00; Status DC Methadone HCl (Dolophine) 20 mg QHS PO Last administered on 08/16/16 20:18; Start 08/15/16 at 21:00; Stop 08/22/16 at 20:59 Mirtazapine (Remeron) 15 mg QHS PO Last administered on 08/16/16 20:15; Start 08/15/16 at 21:00; Stop 09/14/16 at 20:59 Nicotine (Nicoderm Cq 21mg) 1 patch DAILY TD ; Start 08/14/16 at 09:00; Stop at 08:59 Olanzapine (ZyPREXA) 10 mg QHS PO Last administered on 08/16/16 20:16; Start 08/15/16 at 21:00; Stop 09/14/16 at 20:59 Trazodone HCl (Desyrel) 50 mg QHSP PRN PO INSOMNIA Last administered on 03:50; Start 08/14/16 at 02:00; Stop 08/14/16 at 09:26; Status DC Trazodone HCl (Desyrel) 50 mg QHSP PRN PO INSOMNIA; Start 08/14/16 at 09:30; Stop 08/15/16 at 12:00; Status DC Venlafaxine HCl (Effexor Xr) 37.5 mg DAILY PO Last administered on 09:38; Start 08/14/16 at 09:00; Stop 08/15/16 at 12:00; Status DC Venlafaxine HCl (Effexor Xr) 75 mg DAILY PO Last administered on 08/16/16 08:17; Start 08/16/16 at 09:00; Stop 09/15/16 at 08:59 Allergies Coded Allergies: Fluconazole (Verified Allergy, Severe, Anaphylaxis, 02/21/14) SUELLEN EARL MD Aug 17, 2016 00:55
[2016-08-17] MEDS: LEVOTHYROXINE 0.05 MG TAB (50 MCG) PO SCH (06:10)
[2016-08-17] MEDS: ACETAMINOPHEN TAB 650MG DOSE (2X325MG) PO PRN (06:12)
[2016-08-17 06:20] VITALS: BP 140/76
[2016-08-17] MEDS: chlordiazePOXIDE 25 MG CAP PO SCH ×3 (08:09→20:13)
[2016-08-17] MEDS: VENLAFAXINE **XR** 75MG CAPSULE PO SCH (08:09)
[2016-08-17] MEDS: GABAPENTIN 300 MG CAP PO SCH ×3 (08:09→20:14)
[2016-08-17] MEDS: busPIRone 10 MG TAB PO SCH ×2 (08:10→20:14)
[2016-08-17] MEDS: NICOTINE 21MG/24HR 1 EA TRANSDERMAL TD SCH (08:10)
[2016-08-17] MEDS: METHADONE 10 MG TAB (S0109) PO SCH ×2 (08:10→20:14)
[2016-08-17 12:17] VITALS: BP 114/69
[2016-08-17 18:00] VITALS: BP 127/74
[2016-08-17] MEDS: OLANZapine 10 MG TAB PO SCH (20:14)
[2016-08-17] MEDS: MIRTAZAPINE 15 MG TAB PO SCH (20:14)
--- NOTE | 2016-08-17 21:15 | IPNPDOC ---
[facility] Progress Note Progress Note DATE: 08/17/16 HISTORY: Collar Tacker met with patient today to evaluate treatment progress on inpatient unit. Patient was observed to be lying in bed, was able to sit up to engage with keno writer/runner, indicated she is feeling tired and unable to attend groups do to symptoms of fatigue and withdrawal. Patient reported current anxiety level of 2/10, depression 8/10, denied suicidal and homicidal ideation, denied audiovisual hallucinations, and denied urge to engage in self-injurious behavior. Patient denying passive SI symptoms but indicated she had earlier in the day experience thoughts of "sometimes I just don't want to be here anymore, my father a month ago and I miss him." Patient indicates she has a history of experiencing audio hallucinations including "people talk to me and my head," denies visual hallucinations, denies symptoms at time of interaction. Patient states current medication regimen is effective in controlling symptoms, denies medication side effects. Patient reports reduced energy level and concentration , indicates her appetite is stable and inquires as to availability of lunch. Patient denies challenges with sleep at this time. VITAL SIGNS: Please see below. NEW TEST RESULTS: Labs on admission indicated low potassium and calcium, elevated TSH. PA is monitoring TSH. HCG negative on admission. UDS positive for amphetamines, benzodiazepines, cocaine, opiates on admission. 08/16/16EKG sinus bradycardia. Hep C pending. CURRENT MEDICATIONS: See below. MENTAL STATUS EXAMINATION: Patient is a 25-year-old single female who is observed to be lying in bed, is disheveled dressed in her own clothing, makes limited eye contact, appears stated age. Speech: Is of normal rate, rhythm, volume, coherent Thought processes: Clear, somewhat goal-directed Rate of thoughts: Within normal limits. Thought content: Logical, rational, no indication of paranoia. Abstract reasoning: Requires further evaluation. Description of associations: Intact. Description of abnormal or psychotic thoughts: Reports history of audio hallucinations, denies at present and denies other symptoms of hallucinations, Delusions, Preoccupation with violence, Homicidal or suicidal ideation, and obsessions: Judgment: Poor Insight: Poor Oriented to: Time, place and person. Recent and Remote Memory: Appears intact. Attention Span and Concentration: Limited. Language: Requires further evaluation, appears normal. Fund of knowledge: Adequate, Intact, Poor, Fair, Good. Mood: "I'm sad, I miss my dad." No tearfulness Affect: Blunted, congruent with affect. DIAGNOSES:Unspecified depressive disorder, polysubstance use disorder, Rule out major depression, rule out Substance induced mood disorder. ASSESSMENT: Patient appears to be slowly adjusting to unit, has been isolating to room, sleeping, engaging only minimally with staff and peers. Patient continues to progress through withdrawal process, denies physical discomfort at time of interaction, is aware she has medication available to her to address symptoms. Patient indicates balance of medication regimen including the following medications remains effective bd she denies medication side effects: Effexor 75 mg by mouth every morning Zyprexa 10 mg by mouth every night Gabapentin 300 mg 3 times a day BuSpar 10 mg by mouth twice a day Remeron 15 mg at bedtime hydroxyzine 50 mg every 6 hours when necessary anxiety Methadone 10 mg by mouth every morning, 20 mg by mouth daily at bedtime Librium 25 mg by mouth 3 times a day Patient is aware of planned continuation of methadone and Librium taper. Patient was encouraged to participate in unit programming to facilitate the development of effective coping mechanisms. Patient denies suicidal and homicidal ideation, further denies urge to engage in self-injurious behavior, and is able to effectively participate in the safety planning process verbalizing awareness of how to access support on unit when needed. Patient states she is currently homeless, indicates she has a limited support system, verbalizes awareness that she could benefit from inpatient substance abuse treatment. Patient indicates she is aware that her likely discharge plan involves going to [facility] when she is done with inpatient psychiatric treatment. Will continue to monitor patient's response to inpatient treatment and medications, and will continue to taper patient's withdrawal protocol medications as tolerated by patient. MANAGEMENT PLAN: Continue methadone taper, prepare for Librium taper, otherwise continue current medication regimen. Maintain safety precautions Patient to attend groups and participate in unit programming to develop coping strategies Engage patient in discharge planning process and arrange meeting with support group to ensure safe discharge planning when appropriate. Patient to follow up with PCM upon discharge Vital Signs Vital Signs Date Time Temp Pulse Resp B/P Pulse Ox O2 Delivery O2 Flow Rate FiO2 08/17/16 20:14 18 08/17/16 18:00 96.8 94 127/74 Current Medications Current Medications Acetaminophen (Tylenol) 650 mg Q6HP PRN PO HEADACHE or DISCOMFORT Last administered on 08/17/16 06:12; Start 08/14/16 at 02:00; Stop 09/13/16 at 01:59 Al Hydrox/Mg Hydrox/Simethicone (Mylanta) 30 ml Q4HP PRN PO HEARTBURN/ INDIGESTION Last administered on 08/15/16 10:12; Start 08/14/16 at 02:00; Stop 09/13/16 at 01:59 Buspirone HCl (Buspar) 10 mg BID PO Last administered on 08/17/16 20:14; Start 08/15/16 at 09:00; Stop 09/14/16 at 08:59 Chlordiazepoxide (Librium) 25 mg TID PO Last administered on 08/17/16 20:13; Start 08/14/16 at 09:00; Stop 08/21/16 at 08:59 Citalopram Hydrobromide (CeleXA) 20 mg QAM PO ; Start 08/15/16 at 09:00; Stop at 09:00; Status DC Gabapentin (Neurontin) 300 mg TID PO Last administered on 08/17/16 20:14; Start 08/15/16 at 09:00; Stop 09/14/16 at 08:59 Home Med (Med Rec Complete!) ASDIRECTED XX ; Start 08/14/16 at 03:15; Stop at 03:32; Status DC Hydroxyzine HCl (Atarax) 50 mg Q6HP PRN PO ANXIETY; Start 08/14/16 at 02:00; Stop 09/13/16 at 01:59 Levothyroxine Sodium (Synthroid) 0.05 mg QAM@06 PO Last administered on 06:10; Start 08/16/16 at 06:00; Stop 09/15/16 at 05:59 Magnesium Hydroxide (Milk Of Magnesia) 30 ml DAILYPRN PRN PO CONSTIPATION; Start 08/14/16 at 02:00; Stop 09/13/16 at 01:59 Methadone HCl (Dolophine) 10 mg QAM PO Last administered on 08/17/16 08:10; Start 08/16/16 at 09:00; Stop 08/23/16 at 08:59 Methadone HCl (Dolophine) 10 mg QHS PO ; Start 08/18/16 at 21:00; Stop 08/25/16 at 20:59 Methadone HCl (Dolophine) 20 mg BID PO Last administered on 08/15/16 09:38; Start 08/14/16 at 09:00; Stop 08/15/16 at 12:00; Status DC Methadone HCl (Dolophine) 20 mg QHS PO Last administered on 08/17/16 20:14; Start 08/15/16 at 21:00; Stop 08/17/16 at 21:05; Status DC Mirtazapine (Remeron) 15 mg QHS PO Last administered on 08/17/16 20:14; Start 08/15/16 at 21:00; Stop 09/14/16 at 20:59 Nicotine (Nicoderm Cq 21mg) 1 patch DAILY TD Last administered on 08/17/16 08: 10; Start 08/14/16 at 09:00; Stop 09/13/16 at 08:59 Olanzapine (ZyPREXA) 10 mg QHS PO Last administered on 08/17/16 20:14; Start 08/15/16 at 21:00; Stop 09/14/16 at 20:59 Trazodone HCl (Desyrel) 50 mg QHSP PRN PO INSOMNIA Last administered on 03:50; Start 08/14/16 at 02:00; Stop 08/14/16 at 09:26; Status DC Trazodone HCl (Desyrel) 50 mg QHSP PRN PO INSOMNIA; Start 08/14/16 at 09:30; Stop 08/15/16 at 12:00; Status DC Venlafaxine HCl (Effexor Xr) 37.5 mg DAILY PO Last administered on 09:38; Start 08/14/16 at 09:00; Stop 08/15/16 at 12:00; Status DC Venlafaxine HCl (Effexor Xr) 75 mg DAILY PO Last administered on 08/17/16 08:09; Start 08/16/16 at 09:00; Stop 09/15/16 at 08:59 Allergies Coded Allergies: Fluconazole (Verified Allergy, Severe, Anaphylaxis, 02/21/14) Eladia Sierra Aug 17, 2016 21:15
[2016-08-18] MEDS: LEVOTHYROXINE 0.05 MG TAB (50 MCG) PO SCH (05:51)
[2016-08-18] MEDS: hydrOXYzine 50 MG TAB PO PRN ×2 (05:56→17:26)
[2016-08-18 06:22] VITALS: BP 124/72
[2016-08-18] MEDS: VENLAFAXINE **XR** 75MG CAPSULE PO SCH (08:39)
[2016-08-18] MEDS: chlordiazePOXIDE 25 MG CAP PO SCH ×3 (08:39→20:18)
[2016-08-18] MEDS: GABAPENTIN 300 MG CAP PO SCH ×3 (08:39→20:18)
[2016-08-18] MEDS: busPIRone 10 MG TAB PO SCH ×2 (08:39→20:19)
[2016-08-18] MEDS: NICOTINE 21MG/24HR 1 EA TRANSDERMAL TD SCH (08:40)
[2016-08-18] MEDS: METHADONE 10 MG TAB (S0109) PO SCH (08:40)
[2016-08-18 11:32] LABS: ANION GAP 11 MEQ/L (8-16); BLOOD UREA NITROGEN 7 MG/DL (7-18); CARBON DIOXIDE LEVEL 26 MEQ/L (21-32); CHLORIDE LEVEL 100 MEQ/L (98-107); CREATININE FOR GFR 0.89 MG/DL (0.55-1.02); GLOMERULAR FILTRATION RATE > 60.0 (>60); GLUCOSE, FASTING 141 MG/DL (70-105); POTASSIUM SERUM 4.1 MEQ/L (3.5-5.1); SODIUM LEVEL 137 MEQ/L (136-145); T UPTAKE 29 % (30-39); THYROXINE (T4) 8.5 UG/DL (4.5-12.0)
--- NOTE | 2016-08-18 11:37 | IPNPDOC ---
Assessment/Plan Date Seen The patient was seen on 08/18/16. Problems Problems: (1) Hypokalemia Status: Resolved Problem Text: * Repeat labs are within normal limits (2) Abnormal TSH Status: Resolved Problem Text: * Repeat labs noted within normal limits (3) High risk sexual behavior Status: Acute Problem Text: * Patient requests STI screening. * HIV neg. * Hepatitis C RNA pending. Likely Outpt F/U with Dr Alfaro. * Request urine for G/C * RPR. (4) IVDU (intravenous drug user) Status: Chronic Problem Text: * Abn Hepatitis C Ab * Hep C RNA pending. * Outpt F/U with ID. Plan / VTE VTE Prophylaxis Ordered?: No (ambulatory) Subjective Review of Systems CC/HPI The patient is a 25-year-old female admitted with a reason for visit of Depressive D/O, Opiate Abuse. Events since last encounter Requested to evaluate patient regarding follow-up labs. Patient has no specific complaints. Objective Physical Examination General Exam: Positive: Alert Eye Exam: Positive: PERRLA Chest Exam: Positive: Clear to auscultation, Normal air movement Heart Exam: Positive: Normal S1, Normal S2, Rate Normal, Regular Rhythm, Negative: Murmurs, Rubs Skin Exam: Positive: Nl turgor and temperature, Negative: Breakdown, Rash Neuro Exam: Positive: Normal Gait Vital Signs/I&O Vital Signs Date Time Temp Pulse Resp B/P Pulse Ox O2 Delivery O2 Flow Rate FiO2 08/18/16 08:40 18 08/18/16 06:22 97.6 110 124/72 Laboratory Data Labs 24H Laboratory Tests 2 08/18/16 10:18: Anion Gap 11, Blood Urea Nitrogen 7, Creatinine 0.89, Sodium Level 137, Potassium Level 4.1, Chloride Level 100, Carbon Dioxide Level 26, Calcium Level 9.0, Free Thyroxine Index 2.5, Glomerular Filtration Rate > 60.0, Thyroid Stimulating Hormone (TSH) 0.982, Thyroxine (T4) 8.5, Triiodothyronine (T3) Uptake 29L CBC/BMP Laboratory Tests 08/18/16 10:18 Calcium Level 9.0 Yu Reyna Aug 18, 2016 11:37
--- NOTE | 2016-08-18 11:44 | IPNPDOC ---
[facility] Progress Note Progress Note DATE OF SERVICE: 08/18/16 HISTORY: Substation Design Draftsperson met with patient today to evaluate treatment progress on inpatient unit. Patient was observed to be up out of bed, showered, dressed, presenting as much more engageable than yesterday. Patient indicated she is beginning to feel "better," rated anxiety level 7/10, depression 9/10 and she attributes symptoms to "so is the recent my dad ." Patient denies suicidal and homicidal ideation, denies current audiovisual hallucinations but reports ongoing intermittent symptoms, usually at nighttime, of "sometimes I hear music playing or someone calling my name," denies audio hallucinations are distressing and denies all command element to sensory experience. Patient indicates she recently restarted Zyprexa, notes when she takes Zyprexa regularly she does not experience audiovisual hallucinations. Patient denies urge to engage in self-injurious behavior. Patient informs principal technical writer today that up until hospital admission she had been taking Effexor XR 112.5 mg in the morning and 75 mg at night, indicates medication was effective in reducing symptoms of anxiety and depression, notes she is currently feeling "Effexor withdrawal symptoms," makes request for dose increase at this time. Patient notes when taking Effexor XR 150 mg per day "I want to live," and when taking lower dose of Effexor experiences exacerbation in symptoms of depression and anxiety. Patient reports reduced symptoms of withdrawal, indicates protocol remains effective, denies medication side effects. Patient reports some improvement to energy level and concentration, indicates her appetite is stable , denies challenges with sleep at this time. VITAL SIGNS: Please see below. NEW TEST RESULTS: Labs on admission indicated low potassium and calcium, elevated TSH. PA is monitoring TSH. HCG negative on admission. UDS positive for amphetamines, benzodiazepines, cocaine, opiates on admission. 08/16/16 EKG sinus bradycardia. Hep C pending. CURRENT MEDICATIONS: See below. MENTAL STATUS EXAMINATION: Patient is a 25-year-old single female who is observed to be up out of bed today , as tended to her personal hygiene needs, is dressed in her own clothing, makes improved eye contact today and appears stated age Speech: Is of normal rate, rhythm, volume, coherent Thought processes: Clear, somewhat goal-directed Rate of thoughts: Within normal limits. Thought content: Logical, rational, no indication of paranoia. Abstract reasoning: Requires further evaluation. Description of associations: Intact. Description of abnormal or psychotic thoughts: Reports history of audio hallucinations, denies at present and denies other symptoms of hallucinations, Delusions, Preoccupation with violence, Homicidal or suicidal ideation, and obsessions: Judgment: Poor Insight: Poor Oriented to: Time, place and person. Recent and Remote Memory: Appears intact. Attention Span and Concentration: Limited. Language: Within normal limits. Fund of knowledge: Adequate Mood: "I'm still sad, but I feel better than yesterday." No tearfulness Affect: Blunted but slightly more animated than yesterday, congruent with affect. DIAGNOSES: Unspecified depressive disorder, polysubstance use disorder, Rule out major depression, rule out Substance induced mood disorder. ASSESSMENT: Patient continues to adjust to unit, is isolating less and is now engaging selectively, states she intends to attend groups today. Patient continues to progress through withdrawal process, denies physical discomfort at time of interaction, is aware she has medication available to her to address symptoms. Patient indicates balance of medication regimen including the following medications remains effective but today makes dose increase request for Effexor. Patient continues to take the following medication regimen and denies medication side effects: Effexor XR Zyprexa 10 mg by mouth every night Gabapentin 300 mg 3 times a day BuSpar 10 mg by mouth twice a day Remeron 15 mg at bedtime hydroxyzine 50 mg every 6 hours when necessary anxiety Methadone taper Librium taper Patient is aware of planned continuation of methadone and Librium taper. Patient was encouraged to participate in unit programming to facilitate the development of effective coping mechanisms. Patient denies suicidal and homicidal ideation, further denies urge to engage in self-injurious behavior, and is able to effectively participate in the safety planning process verbalizing awareness of how to access support on unit when needed. Patient is currently homeless, indicates she has a limited support system, verbalizes awareness that she could benefit from inpatient substance abuse treatment. Patient indicates she is aware that her likely discharge plan involves going to longterm when she is done with inpatient psychiatric treatment, is aware will be up to the stull hewer suicide if she will be permitted to attempt inpatient rehabilitation again. Will continue to monitor patient's response to inpatient treatment and medications, and will continue to taper patient's withdrawal protocol medications as tolerated by patient. MANAGEMENT PLAN: Increase Effexor to 112.5 mg po q am. Continue methadone taper , prepare for Librium taper, otherwise continue current medication regimen. Maintain safety precautions Patient to attend groups and participate in unit programming to develop coping strategies Engage patient in discharge planning process and arrange meeting with support group to ensure safe discharge planning when appropriate. Patient to follow up with PCM upon discharge Vital Signs Vital Signs Date Time Temp Pulse Resp B/P Pulse Ox O2 Delivery O2 Flow Rate FiO2 08/18/16 08:40 18 08/18/16 06:22 97.6 110 124/72 Laboratory Data 24H Labs Laboratory Tests 2 08/18/16 10:18: Current Medications Current Medications Acetaminophen (Tylenol) 650 mg Q6HP PRN PO HEADACHE or DISCOMFORT Last administered on 08/17/16 06:12; Start 08/14/16 at 02:00; Stop 09/13/16 at 01:59 Al Hydrox/Mg Hydrox/Simethicone (Mylanta) 30 ml Q4HP PRN PO HEARTBURN/ INDIGESTION Last administered on 08/15/16 10:12; Start 08/14/16 at 02:00; Stop 09/13/16 at 01:59 Buspirone HCl (Buspar) 10 mg BID PO Last administered on 08/18/16 08:39; Start 08/15/16 at 09:00; Stop 09/14/16 at 08:59 Chlordiazepoxide (Librium) 25 mg TID PO Last administered on 08/18/16 08:39; Start 08/14/16 at 09:00; Stop 08/21/16 at 08:59 Citalopram Hydrobromide (CeleXA) 20 mg QAM PO ; Start 08/15/16 at 09:00; Stop at 09:00; Status DC Gabapentin (Neurontin) 300 mg TID PO Last administered on 08/18/16 08:39; Start 08/15/16 at 09:00; Stop 09/14/16 at 08:59 Home Med (Med Rec Complete!) ASDIRECTED XX ; Start 08/14/16 at 03:15; Stop at 03:32; Status DC Hydroxyzine HCl (Atarax) 50 mg Q6HP PRN PO ANXIETY Last administered on 05:56; Start 08/14/16 at 02:00; Stop 09/13/16 at 01:59 Levothyroxine Sodium (Synthroid) 0.05 mg QAM@06 PO Last administered on 05:51; Start 08/16/16 at 06:00; Stop 09/15/16 at 05:59 Magnesium Hydroxide (Milk Of Magnesia) 30 ml DAILYPRN PRN PO CONSTIPATION; Start 08/14/16 at 02:00; Stop 09/13/16 at 01:59 Methadone HCl (Dolophine) 10 mg QAM PO Last administered on 08/18/16 08:40; Start 08/16/16 at 09:00; Stop 08/23/16 at 08:59 Methadone HCl (Dolophine) 10 mg QHS PO ; Start 08/18/16 at 21:00; Stop 08/25/16 at 20:59 Methadone HCl (Dolophine) 20 mg BID PO Last administered on 08/15/16 09:38; Start 08/14/16 at 09:00; Stop 08/15/16 at 12:00; Status DC Methadone HCl (Dolophine) 20 mg QHS PO Last administered on 08/17/16 20:14; Start 08/15/16 at 21:00; Stop 08/17/16 at 21:05; Status DC Mirtazapine (Remeron) 15 mg QHS PO Last administered on 08/17/16 20:14; Start 08/15/16 at 21:00; Stop 09/14/16 at 20:59 Nicotine (Nicoderm Cq 21mg) 1 patch DAILY TD Last administered on 08/17/16 08: 10; Start 08/14/16 at 09:00; Stop 09/13/16 at 08:59 Olanzapine (ZyPREXA) 10 mg QHS PO Last administered on 08/17/16 20:14; Start 08/15/16 at 21:00; Stop 09/14/16 at 20:59 Trazodone HCl (Desyrel) 50 mg QHSP PRN PO INSOMNIA Last administered on 03:50; Start 08/14/16 at 02:00; Stop 08/14/16 at 09:26; Status DC Trazodone HCl (Desyrel) 50 mg QHSP PRN PO INSOMNIA; Start 08/14/16 at 09:30; Stop 08/15/16 at 12:00; Status DC Venlafaxine HCl (Effexor Xr) 37.5 mg DAILY PO Last administered on 09:38; Start 08/14/16 at 09:00; Stop 08/15/16 at 12:00; Status DC Venlafaxine HCl (Effexor Xr) 75 mg DAILY PO Last administered on 08/18/16 08:39; Start 08/16/16 at 09:00; Stop 09/15/16 at 08:59 Allergies Coded Allergies: Fluconazole (Verified Allergy, Severe, Anaphylaxis, 02/21/14) Eladia Sierra Aug 18, 2016 11:43
[2016-08-18 12:25] VITALS: BP 133/79
[2016-08-18 18:06] VITALS: BP 134/72
[2016-08-18] MEDS: MIRTAZAPINE 15 MG TAB PO SCH (20:18)
[2016-08-18] MEDS: OLANZapine 10 MG TAB PO SCH (20:18)
[2016-08-18] MEDS ORDERED: METHADONE 10 MG TAB (S0109) PO SCH (21:00)
[2016-08-18 22:00] VITALS: BP 136/70
[2016-08-19] MEDS: LEVOTHYROXINE 0.05 MG TAB (50 MCG) PO SCH (06:23)
[2016-08-19 06:33] VITALS: BP 125/73
[2016-08-19] MEDS: busPIRone 10 MG TAB PO SCH ×2 (07:52→20:00)
[2016-08-19] MEDS: NICOTINE 21MG/24HR 1 EA TRANSDERMAL TD SCH (07:52)
[2016-08-19] MEDS: chlordiazePOXIDE 25 MG CAP PO SCH ×3 (07:52→20:00)
[2016-08-19] MEDS: GABAPENTIN 300 MG CAP PO SCH ×3 (07:52→20:00)
[2016-08-19] MEDS ORDERED: VENLAFAXINE **XR** 37.5 MG CAPSULE PO SCH (09:00)
[2016-08-19] MEDS ORDERED: METHADONE 10 MG TAB (S0109) PO SCH (09:00)
[2016-08-19] MEDS: hydrOXYzine 50 MG TAB PO PRN (14:13)
--- NOTE | 2016-08-19 17:40 | IPNPDOC ---
[facility] Progress Note Progress Note DATE: 08/19/16 HISTORY: Caregiver Services Home met with patient today to evaluate treatment progress on inpatient unit. Patient was observed to be up out of bed, showered, dressed, presenting as engageable. Patient verbalized awareness of continuation of methadone taper, made request for at bedtime dose to be moved to a.m., remains aware that what would have been hs dose will now not be available to her this evening. Patient this morning denies symptoms of anxiety and depression, denies suicidal and homicidal ideation, denies audiovisual hallucinations, denies urge to engage in self-injurious behavior. Patient reports she "sometimes" hears her name being called, thinks it's her father's voice. Patient states audio hallucinations are not distressing and denies all command element to sensory experience. Patient continues to attribute symptoms to recently restarting Zyprexa and reiterates today that in the past when taking medication regularly she does not experience audiovisual hallucinations. Patient states recent dose increase to Effexor XR is helpful in reducing symptoms of anxiety, reiterates today in the past when taking 112 mg in the morning and 75 milligrams at night medication was effective. Patient reports reduced symptoms of withdrawal, indicates withdrawal protocol remains effective, denies medication side effects. Patient reports some improvement to energy level and concentration, indicates her appetite is stable, denies challenges with sleep at this time. VITAL SIGNS: Please see below. NEW TEST RESULTS: Labs on admission indicated low potassium and calcium, elevated TSH. PA is monitoring TSH. HCG negative on admission. UDS positive for amphetamines, benzodiazepines, cocaine, opiates on admission. 08/16/16 EKG sinus bradycardia. Hep C pending. Labs repeated on 08/18/16 with glucose high at 141 and T3 low at 29. CURRENT MEDICATIONS: See below. MENTAL STATUS EXAMINATION: Patient is a 25-year-old single female who is observed to be up out of bed today , has tended to her personal hygiene needs, is dressed in her own clothing, makes improved eye contact today and appears stated age Speech: Is of normal rate, rhythm, volume, coherent Thought processes: Clear, somewhat goal-directed Rate of thoughts: Within normal limits. Thought content: Logical, rational, no indication of paranoia. Abstract reasoning: Requires further evaluation. Description of associations: Intact. Description of abnormal or psychotic thoughts: Reports history of, and intermittent audio hallucinations, denies at present and denies other symptoms of hallucinations, delusions, preoccupation with violence, Homicidal or suicidal ideation, and obsessions Judgment: Poor Insight: Poor Oriented to: Time, place and person. Recent and Remote Memory: Appears intact. Attention Span and Concentration: Limited. Language: Within normal limits. Fund of knowledge: Adequate Mood: "I'm ok, still sad when I think about my dad." No tearfulness Affect: Blunted but slightly more animated than yesterday, congruent with affect. DIAGNOSES: Unspecified depressive disorder, polysubstance use disorder, Rule out major depression, rule out Substance induced mood disorder. ASSESSMENT: Patient continues to adjust to unit, is isolating less and is now engaging selectively, has been attending some groups. Patient continues to progress through withdrawal process, denies physical discomfort at time of interaction, is aware she has medication available to her to address symptoms. Patient indicates balance of medication regimen including the following medications remains effective, notes recent Effexor dose increase is helpful. Patient continues to take the following medication regimen and denies medication side effects: Effexor XR Zyprexa 10 mg by mouth every night Gabapentin 300 mg 3 times a day BuSpar 10 mg by mouth twice a day Remeron 15 mg at bedtime hydroxyzine 50 mg every 6 hours when necessary anxiety Methadone taper Librium taper Hydroxyzine 50 mg po q 6 hours PRN anxiety Patient is aware of planned continuation of methadone and Librium taper. Patient was encouraged to participate in unit programming to facilitate the development of effective coping mechanisms. Patient denies suicidal and homicidal ideation, further denies urge to engage in self-injurious behavior, and is able to effectively participate in the safety planning process verbalizing awareness of how to access support on unit when needed. Patient is currently homeless and continues to verbalize awareness that she could benefit from inpatient substance abuse treatment. Patient indicates she is aware that her likely discharge plan involves going to half-way when she is done with inpatient psychiatric treatment, states she is hopeful the school clerk will decide to allow her to attend inpatient rehabilitation again. Will continue to monitor patient's response to inpatient treatment and medications and will continue to taper patient's withdrawal protocol medications as tolerated by patient. MANAGEMENT PLAN: Continue Effexor to 112.5 mg po q am. Continue methadone taper , prepare for Librium taper, otherwise continue current medication regimen. Maintain safety precautions Patient to attend groups and participate in unit programming to develop coping strategies Engage patient in discharge planning process and arrange meeting with support group to ensure safe discharge planning when appropriate. Patient to follow up with PCM upon discharge TIME SPENT: 35 minutes. Vital Signs Vital Signs Date Time Temp Pulse Resp B/P Pulse Ox O2 Delivery O2 Flow Rate FiO2 08/19/16 11:07 14 08/19/16 06:33 98.3 89 125/73 Current Medications Current Medications Acetaminophen (Tylenol) 650 mg Q6HP PRN PO HEADACHE or DISCOMFORT Last administered on 08/17/16 06:12; Start 08/14/16 at 02:00; Stop 09/13/16 at 01:59 Al Hydrox/Mg Hydrox/Simethicone (Mylanta) 30 ml Q4HP PRN PO HEARTBURN/ INDIGESTION Last administered on 08/15/16 10:12; Start 08/14/16 at 02:00; Stop 09/13/16 at 01:59 Buspirone HCl (Buspar) 10 mg BID PO Last administered on 08/19/16 07:52; Start 08/15/16 at 09:00; Stop 09/14/16 at 08:59 Chlordiazepoxide (Librium) 25 mg TID PO Last administered on 08/19/16 15:41; Start 08/14/16 at 09:00; Stop 08/21/16 at 08:59 Citalopram Hydrobromide (CeleXA) 20 mg QAM PO ; Start 08/15/16 at 09:00; Stop at 09:00; Status DC Gabapentin (Neurontin) 300 mg TID PO Last administered on 08/19/16 15:41; Start 08/15/16 at 09:00; Stop 09/14/16 at 08:59 Home Med (Med Rec Complete!) ASDIRECTED XX ; Start 08/14/16 at 03:15; Stop at 03:32; Status DC Hydroxyzine HCl (Atarax) 50 mg Q6HP PRN PO ANXIETY Last administered on 14:13; Start 08/14/16 at 02:00; Stop 09/13/16 at 01:59 Levothyroxine Sodium (Synthroid) 0.05 mg QAM@06 PO Last administered on 06:23; Start 08/16/16 at 06:00; Stop 09/15/16 at 05:59 Magnesium Hydroxide (Milk Of Magnesia) 30 ml DAILYPRN PRN PO CONSTIPATION; Start 08/14/16 at 02:00; Stop 09/13/16 at 01:59 Methadone HCl (Dolophine) 5 mg QAM PO ; Start 08/20/16 at 09:00; Stop 08/20/16 at 11:00 Methadone HCl (Dolophine) 10 mg QAM PO Last administered on 08/18/16 08:40; Start 08/16/16 at 09:00; Stop 08/18/16 at 11:42; Status DC Methadone HCl (Dolophine) 10 mg QAM PO Last administered on 08/19/16 11:07; Start 08/19/16 at 09:00; Stop 08/19/16 at 14:52; Status DC Methadone HCl (Dolophine) 10 mg QHS PO Last administered on 08/18/16 20:19; Start 08/18/16 at 21:00; Stop 08/19/16 at 10:41; Status DC Methadone HCl (Dolophine) 20 mg BID PO Last administered on 08/15/16 09:38; Start 08/14/16 at 09:00; Stop 08/15/16 at 12:00; Status DC Methadone HCl (Dolophine) 20 mg QHS PO Last administered on 08/17/16 20:14; Start 08/15/16 at 21:00; Stop 08/17/16 at 21:05; Status DC Mirtazapine (Remeron) 15 mg QHS PO Last administered on 08/18/16 20:18; Start 08/15/16 at 21:00; Stop 09/14/16 at 20:59 Nicotine (Nicoderm Cq 21mg) 1 patch DAILY TD Last administered on 08/17/16 08: 10; Start 08/14/16 at 09:00; Stop 09/13/16 at 08:59 Olanzapine (ZyPREXA) 10 mg QHS PO Last administered on 08/18/16 20:18; Start 08/15/16 at 21:00; Stop 09/14/16 at 20:59 Trazodone HCl (Desyrel) 50 mg QHSP PRN PO INSOMNIA Last administered on 03:50; Start 08/14/16 at 02:00; Stop 08/14/16 at 09:26; Status DC Trazodone HCl (Desyrel) 50 mg QHSP PRN PO INSOMNIA; Start 08/14/16 at 09:30; Stop 08/15/16 at 12:00; Status DC Venlafaxine HCl (Effexor Xr) 37.5 mg DAILY PO Last administered on 09:38; Start 08/14/16 at 09:00; Stop 08/15/16 at 12:00; Status DC Venlafaxine HCl (Effexor Xr) 75 mg DAILY PO Last administered on 08/18/16 08:39; Start 08/16/16 at 09:00; Stop 08/18/16 at 11:42; Status DC Venlafaxine HCl (Effexor Xr) 112.5 mg DAILY PO Last administered on 07:52; Start 08/19/16 at 09:00; Stop 08/19/16 at 09:00; Status DC Venlafaxine HCl (Effexor Xr) 112.5 mg DAILY PO ; Start 08/20/16 at 09:00; Stop 09/19/16 at 08:59 Allergies Coded Allergies: Fluconazole (Verified Allergy, Severe, Anaphylaxis, 02/21/14) Eladia Sierra Aug 19, 2016 17:40
[2016-08-19 18:00] VITALS: BP 123/69
[2016-08-19] MEDS: OLANZapine 10 MG TAB PO SCH (20:00)
[2016-08-19] MEDS: MIRTAZAPINE 15 MG TAB PO SCH (20:00)
[2016-08-20] MEDS: LEVOTHYROXINE 0.05 MG TAB (50 MCG) PO SCH (06:22)
[2016-08-20 06:44] VITALS: BP 111/51
[2016-08-20] MEDS ORDERED: METHADONE 10 MG TAB (S0109) PO SCH (09:00)
[2016-08-20] MEDS ORDERED: VENLAFAXINE **XR** 75MG CAPSULE PO SCH (09:00)
[2016-08-20] MEDS: NICOTINE 21MG/24HR 1 EA TRANSDERMAL TD SCH (09:02)
[2016-08-20] MEDS: VENLAFAXINE **XR** 37.5 MG CAPSULE PO SCH (09:22)
[2016-08-20] MEDS: VENLAFAXINE **XR** 75MG CAPSULE PO SCH (09:22)
[2016-08-20] MEDS: busPIRone 10 MG TAB PO SCH ×2 (09:24→20:11)
[2016-08-20] MEDS: GABAPENTIN 300 MG CAP PO SCH ×3 (09:24→20:11)
[2016-08-20] MEDS: chlordiazePOXIDE 25 MG CAP PO SCH ×3 (09:26→20:11)
[2016-08-20 12:27] VITALS: BP 130/74
[2016-08-20] MEDS ORDERED: DIVALPROEX 125 MG TAB PO ONE (15:00)
--- NOTE | 2016-08-20 17:47 | IPNPDOC ---
[facility] Progress Note Progress Note DATE OF SERVICE: 08/20/16 HISTORY: Space Systems Operations Manager met with patient today to evaluate treatment progress on inpatient unit. Patient was observed to be up out of bed, showered, dressed, presenting as engageable. Patient verbalized awareness of discontinuation of methadone taper after today and was reminded that librium taper will begin tomorrow. Patient verbalized agreement and denied having concerns but then informed script writer that she has been irritable, easily agitated, and at times " when other people annoy me I feel like hurting them like throwing hot water at them when they tell me to turn the TV down in the lounge." Patient informs script writer she needs something to "level me out," adds she would like Seroquel added to her medication regimen and wants more one to one time with staff to "process my feelings about stuff like my dad dying which makes me really sad." Patient rates current anxiety level is 9/10, depression 9/10 and attributes them comes to "my mom's giving me tough love right now, she's mean, and I miss my dad." Patient denies suicidal and homicidal ideation, and denies audiovisual hallucinations (though has reported non-distressing AH sans command in past), and denies urge to engage in self-injurious behavior. Patient also makes request for continuing titration of Effexor to address symptoms of depression and anxiety. Patient was encouraged to utilize available PRN of hydroxyzine, quickly informs script writer medication is ineffective. Patient denies symptoms of craving or withdrawal and denies medication side effects. Patient reports some improvement to energy level and concentration, indicates her appetite is stable , denies challenges with sleep and denies physical pain. Patient indicates she recently had a friend visit her in the hospital and another friend : The phone, patient indicates interactions with friends are positive and supportive. VITAL SIGNS: Please see below. NEW TEST RESULTS: Labs on admission indicated low potassium and calcium, elevated TSH. PA is monitoring TSH. HCG negative on admission. UDS positive for amphetamines, benzodiazepines, cocaine, opiates on admission. 08/16/16 EKG sinus bradycardia. Hep C pending. Labs repeated on 08/18/16 with glucose high at 141 and T3 low at 29. CURRENT MEDICATIONS: See below. MENTAL STATUS EXAMINATION: Patient is a 25-year-old single female who is observed to be up out of bed today , has tended to her personal hygiene needs, is dressed in her own clothing, makes improved eye contact today and appears stated age Speech: Is of normal rate, rhythm, volume, coherent Thought processes: Clear, somewhat goal-directed, fixated on medication Rate of thoughts: Within normal limits. Thought content: Logical, rational, no indication of paranoia. Abstract reasoning: Requires further evaluation. Description of associations: Intact. Description of abnormal or psychotic thoughts: Reports history of, and intermittent audio hallucinations, denies at present and denies other symptoms of hallucinations, delusions, preoccupation with violence, Homicidal or suicidal ideation, and obsessions Judgment: Poor Insight: Poor Oriented to: Time, place and person. Recent and Remote Memory: Appears intact. Attention Span and Concentration: Limited. Language: Within normal limits. Fund of knowledge: Adequate Mood: "I'm ok, but I need some medication to level me out." No tearfulness today , no lability noted Affect: Blunted but slightly more animated than yesterday, congruent with affect. DIAGNOSES: Unspecified depressive disorder, polysubstance use disorder, Rule out major depression, rule out Substance induced mood disorder. ASSESSMENT: Patient continues to adjust to unit, is isolating less and continues to engage selectively, has been attending some groups and is observed to be free of irritability and agitation when talking on the telephone. Patient continues to progress through withdrawal process, denies physical discomfort at time of interaction and verbalizes awareness of withdrawal protocol progression , appears irritable when discussing medications, denies is associated with withdrawal process. Patient makes request for Effexor dose increase and addition of Seroquel and/or dose increase to gabapentin, and/or start mood stabilizing agent. Patient also makes request for change in PRN anxiolytic medication. Space Systems Operations Manager sought clinical consultation and upon follow-up with patient was made aware that apparently patient approached MD provider who made changes to medication regimen including initiation of Depakote 250 mg po BID and increasing gabapentin to 600 mg po TID. Patient again made request for addition of Seroquel. Depakote 250 mg po BID - initiated date of entry by other provider Effexor XR - remains at 112.5 mg po q am, will monitor for need to reduce or discontinue if patient continues to complain of mood instability Zyprexa 10 mg po q hs Gabapentin - increased to 600 mg po TID date of entry by other provider BuSpar 10 mg by mouth twice a day Remeron 15 mg po hs Methadone taper - ends date of entry Librium taper - begins tomorrow am with last dose scheduled in a.m. at patient' s request on 08/22/16 (taper orders already entered in to EMR) Hydroxyzine 50 mg po q 6 hours PRN anxiety - no longer taking, was discontinued by other provider Patient is aware of planned continuation of methadone and Librium taper. Patient was encouraged to participate in unit programming to facilitate the development of effective coping mechanisms. Patient denies suicidal and homicidal ideation, further denies urge to engage in self-injurious behavior, and is able to effectively participate in the safety planning process verbalizing awareness of how to access support on unit when needed. Patient is currently homeless and continues to verbalize awareness that she could benefit from inpatient substance abuse treatment. Patient indicates she is aware that her likely discharge plan involves going to half-way when she has completed inpatient psychiatric treatment. Patient remains hopeful that the senior accounting analyst will allow her to attend the [facility] program and receive methadone maintenance. Will continue to monitor patient's response to inpatient treatment and medications, and will continue to taper patient's withdrawal protocol medications as tolerated by patient. MANAGEMENT PLAN: Continue current medication as outlined above. Complete methadone taper, continue Librium taper. Maintain safety precautions Patient to attend groups and participate in unit programming to develop coping strategies Engage patient in discharge planning process and arrange meeting with support group to ensure safe discharge planning when appropriate. Patient to follow up with PCM upon discharge TIME SPENT: 35 m Vital Signs Vital Signs Date Time Temp Pulse Resp B/P Pulse Ox O2 Delivery O2 Flow Rate FiO2 08/20/16 12:27 97.5 90 16 130/74 Current Medications Current Medications Medications (Trade) Dose Ordered Sig/Brenda Route PRN Reason Start Time Stop Time Status Last Admin Dose Admin Acetaminophen (Tylenol) 650 mg Q6HP PRN PO HEADACHE or DISCOMFORT 08/14/16 02:00 09/13/16 01:59 08/17/16 06:12 Al Hydrox/Mg Hydrox/Simethicone (Mylanta) 30 ml Q4HP PRN PO HEARTBURN/INDIGESTION 08/14/16 02:00 09/13/16 01:59 08/15/16 10:12 Buspirone HCl (Buspar) 10 mg BID PO 08/15/16 09:00 09/14/16 08:59 08/20/16 09:24 Chlordiazepoxide (Librium) 25 mg BID PO 08/21/16 09:00 08/28/16 08:59 Chlordiazepoxide (Librium) 25 mg TID PO 08/14/16 09:00 08/20/16 22:00 08/20/16 15:09 Citalopram Hydrobromide (CeleXA) 20 mg QAM PO 08/15/16 09:00 08/15/16 09:00 DC Divalproex Sodium (Depakote) 250 mg BID PO 08/20/16 21:00 09/19/16 20:59 Gabapentin (Neurontin) 300 mg TID PO 08/15/16 09:00 08/20/16 14:38 DC 08/20/16 09:24 Gabapentin (Neurontin) 600 mg TID PO 08/20/16 16:00 09/19/16 15:59 08/20/16 15:09 Home Med (Med Rec Complete!) ASDIRECTED XX 08/14/16 03:15 08/14/16 03:32 DC Hydroxyzine HCl (Atarax) 50 mg Q6HP PRN PO ANXIETY 08/14/16 02:00 08/20/16 14:38 DC 08/19/16 14:13 Levothyroxine Sodium (Synthroid) 0.05 mg QAM@06 PO 08/16/16 06:00 09/15/16 05:59 08/20/16 06:22 Magnesium Hydroxide (Milk Of Magnesia) 30 ml DAILYPRN PRN PO CONSTIPATION 08/14/16 02:00 09/13/16 01:59 Methadone HCl (Dolophine) 5 mg QAM PO 08/20/16 09:00 08/20/16 11:00 DC 08/20/16 08:25 Methadone HCl (Dolophine) 10 mg QAM PO 08/16/16 09:00 08/18/16 11:42 DC 08/18/16 08:40 Methadone HCl (Dolophine) 10 mg QAM PO 08/19/16 09:00 08/19/16 14:52 DC 08/19/16 11:07 Methadone HCl (Dolophine) 10 mg QHS PO 08/18/16 21:00 08/19/16 10:41 DC 08/18/16 20:19 Methadone HCl (Dolophine) 20 mg BID PO 08/14/16 09:00 08/15/16 12:00 DC 08/15/16 09:38 Methadone HCl (Dolophine) 20 mg QHS PO 08/15/16 21:00 08/17/16 21:05 DC 08/17/16 20:14 Mirtazapine (Remeron) 15 mg QHS PO 08/15/16 21:00 09/14/16 20:59 08/19/16 20:00 Nicotine (Nicoderm Cq 21mg) 1 patch DAILY TD 08/14/16 09:00 09/13/16 08:59 08/17/16 08:10 Olanzapine (ZyPREXA) 10 mg QHS PO 08/15/16 21:00 09/14/16 20:59 08/19/16 20:00 Trazodone HCl (Desyrel) 50 mg QHSP PRN PO INSOMNIA 08/14/16 02:00 08/14/16 09:26 DC 08/14/16 03:50 Trazodone HCl (Desyrel) 50 mg QHSP PRN PO INSOMNIA 08/14/16 09:30 08/15/16 12:00 DC Venlafaxine HCl (Effexor Xr) 37.5 mg DAILY PO 08/14/16 09:00 08/15/16 12:00 DC 08/15/16 09:38 Venlafaxine HCl (Effexor Xr) 37.5 mg DAILY PO 08/20/16 09:00 09/19/16 08:59 08/20/16 09:22 Venlafaxine HCl (Effexor Xr) 75 mg DAILY PO 08/16/16 09:00 08/18/16 11:42 DC 08/18/16 08:39 Venlafaxine HCl (Effexor Xr) 75 mg DAILY PO 08/20/16 09:00 09/19/16 08:59 08/20/16 09:22 Venlafaxine HCl (Effexor Xr) 112.5 mg DAILY PO 08/19/16 09:00 08/19/16 09:00 DC 08/19/16 07:52 Venlafaxine HCl (Effexor Xr) 112.5 mg DAILY PO 08/20/16 09:00 08/20/16 09:07 DC Allergies Coded Allergies: Fluconazole (Verified Allergy, Severe, Anaphylaxis, 02/21/14) Eladia Sierra Aug 20, 2016 17:47
[2016-08-20 18:11] VITALS: BP 130/78
[2016-08-20] MEDS: MIRTAZAPINE 15 MG TAB PO SCH (20:11)
[2016-08-20] MEDS: OLANZapine 10 MG TAB PO SCH (20:11)
[2016-08-20] MEDS ORDERED: IBUPROFEN 200 MG TAB PO PRN (20:45)
[2016-08-20] MEDS ORDERED: DIVALPROEX 250 MG TAB PO SCH (21:00)
[2016-08-20 21:10] LABS: MEAN CORPUSCULAR HEMOGLOBIN 27.7 pg (27.0-33.0); MEAN CORPUSCULAR HGB CONC 33.4 g/dl (32.0-36.5); RED CELL DISTRIBUTION WIDTH 13.5 % (11.5-14.5); WHITE BLOOD COUNT 8.8 K/mm3 (4.0-10.0)
--- NOTE | 2016-08-20 21:12 | IPN ---
DATE: 08/20/2016 SUBJECTIVE: The patient complains that she has been having pain in her feet bilaterally for the past several days. She tells me that today she noticed that they were a little bit more swollen. She does not know how long they were swollen for. She was not really paying attention. Otherwise, she denies chest pain, shortness of breath, fevers, chills, vomiting. She does have some mild nausea. She does have anxiety. She does have diaphoresis. OBJECTIVE: VITAL SIGNS: Temperature 98.4, maximum temperature (T max) 99.7, pulse 106, respiratory rate 16, blood pressure 130/78. GENERAL: She is a young female up ambulating around her room. She appears mildly anxious but not in any acute distress. In general, the patient appears as though she is withdrawing from alcohol. HEENT: She is diaphoretic. She has tongue fasciculations. Cranial nerves II-XII are grossly intact. She has moist mucous membranes. No elevation in CVP. CARDIOVASCULAR EXAM: S1, S2. She is mildly tachycardic. RESPIRATORY EXAM: Clear. ABDOMINAL EXAM: Benign. EXTREMITIES: There is trace edema bilaterally with some tenderness to palpation but no frederic pitting edema. LABORATORY STUDIES: None since 08/18/2016. Toxicology on arrival was positive for opiates, amphetamines, cocaine, benzodiazepines. Hepatitis C is preliminarily positive. ASSESSMENT AND PLAN: This is a 25-year-old female currently admitted with depression and polysubstance abuse, who was brought in by police after overdosing on heroin and Xanax in a suicide attempt. PROBLEMS: Bilateral lower extremity swelling and pain. At this time, the etiology remains unclear. It is not frederic edema. I will check a CMP and a CBC and duplex ultrasound has already been ordered. However, given the fact that it is bilateral in nature, she has no calf tenderness and no Dickerson's sign, my suspicion for deep vein thrombosis (DVT) is lower. Will followup the results. The patient was recently started on Librium. She has been receiving quite a bit of it given that she is experiencing a significant amount of withdrawal symptoms. I did discuss with Dr. Montero as this can potentially cause edema. We will discontinue this medication and start her on Serax 15 mg twice a day. The patient has been started on gabapentin 600 mg three times a day today in regards to the pain she is experiencing in her feet. I will also add ibuprofen every 6 hours as needed. Her liver function appears to be good at this time. Also, please note, that the patient has been ordered for an echocardiogram. Other problems as per Yu Reyna most recent note. We will continue to follow along with you. Please call if specific questions.
[2016-08-20 21:35] LABS: ALBUMIN 3.1 GM/DL (3.2-5.2); ALBUMIN/GLOBULIN RATIO 0.86 (1.00-1.93); ALKALINE PHOSPHATASE 90 U/L (45-117); ALT/SGPT 37 U/L (12-78); ANION GAP 7 MEQ/L (8-16); AST/SGOT 25 U/L (15-37); BILIRUBIN,TOTAL 0.5 MG/DL (0.2-1.0); BLOOD UREA NITROGEN 5 MG/DL (7-18); CALCIUM LEVEL 8.5 MG/DL (8.5-10.1); CARBON DIOXIDE LEVEL 30 MEQ/L (21-32); CHLORIDE LEVEL 100 MEQ/L (98-107); CREATININE FOR GFR 0.82 MG/DL (0.55-1.02); GLOMERULAR FILTRATION RATE > 60.0 (>60); GLUCOSE, FASTING 162 MG/DL (70-105); POTASSIUM SERUM 3.9 MEQ/L (3.5-5.1); SODIUM LEVEL 137 MEQ/L (136-145); TOTAL PROTEIN 6.7 GM/DL (6.4-8.2)
[2016-08-21] MEDS: LEVOTHYROXINE 0.05 MG TAB (50 MCG) PO SCH (05:58)
[2016-08-21] MEDS ORDERED: LevoFLOXacin 500 MG TABLET PO SCH (06:00)
[2016-08-21] MEDS: ACETAMINOPHEN TAB 650MG DOSE (2X325MG) PO PRN (06:01)
[2016-08-21 06:23] VITALS: BP 152/90
[2016-08-21] MEDS ORDERED: ONDANSETRON 4 MG ORAL DISINTEGRATING TAB (S0181) SL ONE (06:45)
[2016-08-21 07:35] LABS: BASO # 0.2 K/mm3 (0.0-0.2); EOS # 0.2 K/mm3 (0.0-0.50); EOS % 1.6 % (0.0-3.0); LARGE UNSTAINED CELL # 0.2 K/mm3 (0.0-0.4); LARGE UNSTAINED CELL % 1.1 % (0.0-4.0); LYMPH # 2.1 K/mm3 (1.5-6.5); LYMPH % 12.6 % (24.0-44.0); MEAN CORPUSCULAR HEMOGLOBIN 27.7 pg (27.0-33.0); MEAN CORPUSCULAR HGB CONC 33.9 g/dl (32.0-36.5); MEAN CORPUSCULAR VOLUME 81.9 fl (80.0-96.0); MONO # 0.8 K/mm3 (0.0-0.8); MONO % 5.4 % (0.0-5.0); NEUTROPHILS # 11.8 K/mm3 (1.8-7.7); NEUTROPHILS % 78.3 % (36.0-66.0); PLATELET COUNT, AUTOMATED 252 k/mm3 (150-450); RED CELL DISTRIBUTION WIDTH 13.4 % (11.5-14.5); WHITE BLOOD COUNT 15.1 K/mm3 (4.0-10.0)
[2016-08-21] MEDS: NICOTINE 21MG/24HR 1 EA TRANSDERMAL TD SCH (08:11)
[2016-08-21 08:12] LABS: ALBUMIN/GLOBULIN RATIO 0.83 (1.00-1.93); ALKALINE PHOSPHATASE 98 U/L (45-117); ALT/SGPT 33 U/L (12-78); AMYLASE 17 U/L (25-115); ANION GAP 10 MEQ/L (8-16); AST/SGOT 20 U/L (15-37); BILIRUBIN,TOTAL 0.5 MG/DL (0.2-1.0); BLOOD UREA NITROGEN 4 MG/DL (7-18); CALCIUM LEVEL 8.2 MG/DL (8.5-10.1); CARBON DIOXIDE LEVEL 26 MEQ/L (21-32); CHLORIDE LEVEL 102 MEQ/L (98-107); CREATININE FOR GFR 0.91 MG/DL (0.55-1.02); GLOMERULAR FILTRATION RATE > 60.0 (>60); GLUCOSE, FASTING 135 MG/DL (70-105); POTASSIUM SERUM 4.2 MEQ/L (3.5-5.1); SODIUM LEVEL 138 MEQ/L (136-145); TOTAL PROTEIN 6.6 GM/DL (6.4-8.2)
[2016-08-21] MEDS: busPIRone 10 MG TAB PO SCH (08:12)
[2016-08-21] MEDS: VENLAFAXINE **XR** 75MG CAPSULE PO SCH (08:12)
[2016-08-21] MEDS: VENLAFAXINE **XR** 37.5 MG CAPSULE PO SCH (08:12)
[2016-08-21] MEDS: GABAPENTIN 300 MG CAP PO SCH (08:12)
[2016-08-21 08:21] LABS: ERYTHROCYTE SEDIMENTATION RATE 61 mm/hr (0-20)
[2016-08-21] MEDS ORDERED: LITHIUM CARBONATE 300 MG CAP PO SCH (09:00)
[2016-08-21] MEDS ORDERED: OXAZEPAM 15 MG CAP PO SCH (09:00)
[2016-08-21] MEDS ORDERED: chlordiazePOXIDE 25 MG CAP PO SCH ×2 (09:00)
[2016-08-21 12:10] VITALS: BP 115/57
[2016-08-21] MEDS ORDERED: NICO21DI5 TD (13:34)
[2016-08-21] MEDS ORDERED: NEUR600T PO (13:34)
[2016-08-21] MEDS ORDERED: MOM30SS PO (13:49)
[2016-08-21] MEDS ORDERED: ADVI200C5 PO (13:49)
[2016-08-21] MEDS ORDERED: LITH300C PO (13:49)
[2016-08-21] MEDS ORDERED: TYLE325T5 PO (13:49)
[2016-08-21] MEDS ORDERED: LEVA500T PO (13:49)
[2016-08-21] MEDS ORDERED: SERAX PO (13:49)
[2016-08-21] MEDS ORDERED: MYLATAB PO (13:49)
[2016-08-21] MEDS ORDERED: ISOVUE-370 76% 100ML VIAL (Q9967) As Ordered ONE (17:15)
--- NOTE | 2016-08-22 00:58 | ECGEPIP ---
Stationary ECG Study 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 Electronically Signed On 08-22-2016 0:58:35 EST by Carlitos Dai
[2016-08-22] MEDS ORDERED: chlordiazePOXIDE 25 MG CAP PO SCH (09:00)
[2016-08-22] MEDS ORDERED: ISOVUE-370 76% 100ML VIAL (Q9967) As Ordered ONE (20:01)
--- NOTE | 2016-08-23 08:29 | REP ---
Portable chest, single AP view, patient sitting: Comparison 01/18/2014. The lung castellano are clear. The cardiac size is normal The grisel, mediastinum, and bony thorax are unremarkable. Impression: Negative portable chest. There is no interval change. Signed by Harvinder Chaudhry MD 08/21/2016 08:49 A
--- NOTE | 2016-08-23 08:32 | ECHO ---
DATE OF PROCEDURE: 08/21/2016 DATE OF : 1990 AGE: 25 REFERRING PROVIDER: Dr. Don Gibbons. PATIENT LOCATION: Room 2101. REASON FOR ECHOCARDIOGRAM: Edema, fever. History of IVDA. 2D MEASUREMENTS: IVS: 1.0 cm LV: 4.0 cm LVPW: 1.1 cm LA: 3.4 cm Aorta: 2.6 cm IVC: Not well visualized. RV: 2.0 cm DOPPLER MEASUREMENTS: Mitral E: 0.99 Mitral A: 0.90 Ratio of more than 1.0. Tricuspid valve velocity: 1.8 m/s 2D COMMENTS: 1. Normal left ventricular size, wall thickness and normal global left ventricular systolic function. The estimated global left ventricular systolic ejection fraction is 65% to 70%. 2. Normal left atrium. Normal right atrium and right ventricle. 3. The atrial septum appeared to be normal without evidence of defect or shunt. 4. Normal aortic root. 5. No pericardial effusion seen. 6. Normal aortic valve, mitral valve, tricuspid valve and pulmonic valve. The proximal pulmonary artery branches also appear to be normal. 7. The inferior vena cava was normal in size, central venous pressure is most likely normal. DOPPLER: It detects trace tricuspid regurgitation and trace pulmonic regurgitation. The calculated pulmonary artery systolic pressure is normal. IMPRESSION: 1. Normal global left ventricular systolic and diastolic function. 2. Trace tricuspid regurgitation with a normal calculated pulmonary artery systolic pressure. 3. Trace pulmonic regurgitation. 4. No vegetations noted in this transthoracic echocardiogram. To consider a transesophageal echocardiogram if suspicion for endocarditis is a concern.
--- NOTE | 2016-08-23 08:33 | REPUSA ---
CLINICAL HISTORY: Edema. COMMENTS: Real time sonography with duplex doppler of the extremities bilaterally was performed with attention to the major deep venous structures. Evaluation reveals the common femoral, superficial femoral and popliteal veins bilaterally to be comp letely compressible without intraluminal thrombus. There is normal spontaneous phasic flow and augmen tation in all deep veins. The greater saphenous/common femoral vein junctions are patent bilaterally. IMPRESSION: No evidence of DVT in the lower extremities bilaterally. Thank you for your kind referral of this patient.
[2016-08-26 00:06] LABS: ORGANISM ID Not indicated. (.); SPECIMEN SOURCE Urine (.)
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
[2016-08-30 14:14] LABS: 7-Aminoclonazepam Negative (.); Alprazolam Negative (.); Chlordiazepoxide 1977 ng/mL (.); Clonazepam Negative (.); Diazepam Negative (.); Lorazepam Negative (.); Midazolam Negative (.); Temazepam Negative (.); Triazolam Negative (.)
== END 2016-08-21 14:40 | disposition short-term general hospital (02) | DRG 753 ==
LOC: M ED 16:58 → M PSY 08-14 03:10
PROVIDERS: ADMIT Psychiatry & Neurology Psychiatry; ATTEND Psychiatry & Neurology Psychiatry
DX: F31.81 Bipolar II disorder (principal); E03.9 Hypothyroidism, unspecified; F11.90 Opioid use, unspecified, uncomplicated; F14.90 Cocaine use, unspecified, uncomplicated; F15.90 Other stimulant use, unspecified, uncomplicated; F17.210 Nicotine dependence, cigarettes, uncomplicated; Z72.51 High risk heterosexual behavior; E87.6 Hypokalemia

== ENCOUNTER 2016-08-21 12:18 | Inpatient (IN) | payer MEDICAID, SELFPAY ==
[~2016-08-21] VITALS: Ht 157.5 cm; Wt 75.2 kg
[~2016-08-21 12:18] MED LIST changes: +BUSP15TA47 PO; +EFFE37.527 PO; +EFFE75CA75 PO; +MIRA0.254 PO; +REME15TA PO; +SYNT50TA PO; +ZYPR10TA PO
[2016-08-21] MEDS ORDERED: NEUR600T PO (13:34)
[2016-08-21] MEDS ORDERED: NICO21DI5 TD (13:34)
[2016-08-21] MEDS ORDERED: LITH300C PO (13:49)
[2016-08-21] MEDS ORDERED: TYLE325T5 PO (13:49)
[2016-08-21] MEDS ORDERED: SERAX PO (13:49)
[2016-08-21] MEDS ORDERED: MYLATAB PO (13:49)
[2016-08-21] MEDS ORDERED: LEVA500T PO (13:49)
[2016-08-21] MEDS ORDERED: ADVI200C5 PO (13:49)
[2016-08-21] MEDS ORDERED: MOM30SS PO (13:49)
[2016-08-21 13:59] VITALS: BP 130/64
[2016-08-21 15:00] VITALS: BP 127/57
--- NOTE | 2016-08-21 15:12 | PHACANCOPD ---
PHARMACY VANCOMYCIN DOSING Pt Demographics Demographics Patient Age:25 , Weight: , Gender: female Adjusted Body Weight Date: 08/21/16, Adjusted Body Weight: Kg Events Past 24 Hours Events Past 24 Hours: YES: Elevation in WBC Vancomycin Vancomycin indication: SIRS, likely sepsis Vancomycin Target Ranges: 15-20 mcg/ml Vancomycin Load Y/N: Yes Load Dose Date Time Vancomycin Load Dose: 1750mg Date: 08/21/16 Time: 1600 Vancomycin Dose Date: 08/21/16. Current Vancomycin Dose: [1g IV Q8H] Intermittent Dosing?: No Labs Labs Item Value Date Time White Blood Count 15.1 K/mm3 H 08/21/16 0713 Erythrocyte Sedimentation Rate 61 mm/hr H 08/21/16 0713 Creatinine 0.91 MG/DL 08/21/16 07 C-Reactive Protein, Quantitative 12.00 MG/DL H 08/21/16 07 Creatinine Clearance Date:08/21/16. Estimated Creatinine Clearance: ~[82.1 ml/min]. Pending Labs Vancomycin trough scheduled 08/22/16 @1500, prior to the 4th dose Assessment and Plan Maintaining Current Dose?: Yes Reason for dose change: No Dose Change Pharmacist Note Pharmacist Note Date: 08/21/16. Pharmacist note: Day #1 IV empiric levaquin/vancomycin initiated with a 1750mg loading dose, followed by a maintenance regimen of 1g IV Q8H for the treatment of SIRS/possible sepsis - aiming for a goal trough of 15-20 mcg/ ml. WBC, ESR, and CRP are currently elevated, and patient has been febrile within the past 24 hours. Urine and sputum cultures are pending. No PMH of MRSA or vanco use here at [facility]. A trough has been scheduled 08/22/16 @ 1500, prior to the 4th dose. We will continue to monitor and make adjustments as needed. [facility] Aug 21, 2016 15:12
--- NOTE | 2016-08-21 15:40 | HPEPDOC ---
Medical History and Physical Date of Admission Aug 21, 2016 at 14:56 History and Physical PRIMARY CARE PROVIDER: ATTENDING: Rema Chase MD CHIEF COMPLAINT: Fevers HISTORY OF PRESENT ILLNESS: This is a 25-year-old female past medical history of hypothyroidism, schizoaffective disorder and polysubstance abuse, who was recently admitted to inpatient mental health after a suicide attempt. Patient states that she has warrant for her arrest and she was supposed to be going to long-term for violating her parole, states that no family is around as she is homeless, felt alone, and decided to try to overdose on heroin and Xanax. Patient is very lethargic on presentation to the inpatient mental health unit. Over the past 2-3 days the patient states she's developed a productive cough of green sputum. Denies any shortness of breath/chest pain/palpitations. Patient also states that she has lower extremity swelling that is new over the past few days as well. Denies any trauma. The hospitalist team has been consulted for fevers of unknown origin, however the patient is noted to be septic from PNA. The patient was transferred to the medicine floor for further treatment. In addition, on the admission forms on presentation to the mental health unit, it was noted that the Police Department would like to be informed when the patient is cleared for discharge as they have a warrant for her arrest. I have spoken to Dr. Montero who states that he will be on consult, as the patient has not been cleared from a psychiatric perspective. And the patient will need to be transferred back to inpatient psych when she is medically cleared. PAST MEDICAL HISTORY: As per HPI PAST SURGICAL HISTORY: None SOCIAL HISTORY: Homeless. History of heroin, opioid, amphetamines, cocaine, Xanax use with a positive UDS on admission to inpatient health. Smokes a pack a day. Denies alcohol use. FAMILY HISTORY: Mother with depression ALLERGIES: Please see below. REVIEW OF SYSTEMS: HEENT: Denies sore throat/headache CARDIOVASCULAR: Denies chest pain/palpitations RESPIRATORY: No shortness of breath. No cough GASTROINTESTINAL: denies nausea/vomiting GENITOURINARY: Denies dysuria/urinary urgency. MUSCULOSKELETAL: Denies myalgias/arthralgias NEUROLOGICAL: Denies any focal weakness Rest of ROS negative. PHYSICAL EXAMINATION: Vitals: (see below) General: No acute distress, laying comfortably in bed. HEENT: Moist mucous membranes. Neck: No JVD or lymphadenopathy Cardiac: Tachycardic, No murmurs Pulm: Diminished breath sounds at the bases. B/l. No wheezing. + rhonchi Abd: RUQ tenderness to palpation. No rebound/guarding/rigidity.ND + BS Ext: 1+ pitting edema BLE. No cyanosis. Distal pulses intact. No erythema of the LE, however they do appear warm. LABORATORY DATA: See below. IMAGING: Chest x-ray with likely right lobe middle/lower infiltrate MICROBIOLOGY: Please see below. ASSESSMENT/PLAN: 1. Sepsis, likely secondary to healthcare acquired pneumonia versus aspiration pneumonia. The patient was very lethargic on presentation to the mental health units after a suicide attempt may have aspirated. The patient also states that her cough started 3 days ago. Patient has been tachycardic, febrile, with notable leukocytosis, elevated CRP. We will check lactic acid and venous blood gas. Patient has been started on pressors antibiotics. Follow blood and sputum cultures. Urine Legionella and strep. IV fluids. 2. Right upper quadrant pain- LFTs within normal limits. We'll check CT abdomen and pelvis. 3. Lower extremity edema- unknown etiology. Patient had every been ordered echocardiogram will she has been inpatient mental health will need to follow-up on this. Patient also had lower extremity Doppler ultrasound which is negative. No cellulitis noted. Distal pulses intact. 4. Schizoaffective disorder with recent suicide attempt - we'll continue the patient's psychiatric medications as per psychiatry. Psychiatry will also be on consult. DVT prophylaxis- enoxaparin Vital Signs Blood pressure 115/57, heart rate 110, respiratory rate 16, oxygen saturation 98 % on room air, afebrile this time however had a MAXIMUM TEMPERATURE of 103 this morning. Home Medications Scheduled ([Serax]) 15 MG PO Q12H BENZO WITHDRAWAL SYMPTOMS Gabapentin (Neurontin) 600 Mg Tab 600 MG PO TID DEPRESSION Levofloxacin Hemihydrate (Levaquin) 500 Mg Tab 500 MG PO DAILY@0600 BACTERIAL INFECTION Levothyroxine Sodium (Synthroid) 50 Mcg Tab 50 MCG PO QAM Hypothyriodism [place] Carbonate ([place] Carbonate) 300 Mg Cap 300 MG PO BID MOOD STABILIZATION Mirtazapine (Remeron) 15 Mg Tab 15 MG PO QHS DEPRESSION Nicotine (Nicoderm Cq) 21 Mg/24 Hr Dis 21 MG TD DAILY NICOTINE USE D/O Olanzapine (Zyprexa) 10 Mg Tab 10 MG PO DAILY Biopolar Venlafaxine Hydrochloride (Effexor Xr) 37.5 Mg Cap 37.5 MG PO DAILY DEPRESSION W/ 75 mg; 112.5 mg daily Venlafaxine Hydrochloride (Effexor Xr) 75 Mg Cap 75 MG PO DAILY DEPRESSION w/ 37.5mg; 112.5mg daily Scheduled PRN ([Mylanta]) 30 ML PO Q4HP PRN PRN HEARTBURN/INDIGESTION Acetaminophen (Tylenol) 325 Mg Tab 650 MG PO Q6HP PRN PRN HEADACHE or DISCOMFORT Ibuprofen (Advil) 200 Mg Cap 200 MG PO Q6HP PRN PRN PAIN Milk Of Magnesia (Milk of Magnesia Concentr) 30 Ml Conc 30 ML PO DAILYPRN PRN PRN CONSTIPATION Allergies Coded Allergies: Fluconazole (Verified Allergy, Severe, Anaphylaxis, 02/21/14) REMA CHASE MD Aug 21, 2016 15:40
[2016-08-21] MEDS ORDERED: SODIUM CHLORIDE 0.9% 1000 ML IV ONE (15:45)
[2016-08-21] MEDS: PANTOPRAZOLE 40MG INJ (PROTONIX) (C9113) IV SCH (15:51)
[2016-08-21] MEDS: VANCOMYCIN HCL 1,000 MG, VIAL MATE ADAPTER 1 EACH in D5W 250 ML IV SCH (15:52)
[2016-08-21] MEDS: ENOXAPARIN 40 MG/0.4 ML SYRINGE (J1650) SC SCH (15:52)
[2016-08-21] MEDS: NS 1,000 ML IV SCH ×2 (15:52→17:29)
[2016-08-21] MEDS ORDERED: GASTROGRAFIN SOLUTION 30ML PO ONE (16:00)
[2016-08-21 16:14] LABS: VENOUS O2 SATURATION 99.1 % (60.0-80.0); VENOUS PARTIAL PRESSURE CO2 40.5 mmHg (38.0-50.0); VENOUS PARTIAL PRESSURE O2 150.8 mmHg (30.0-50.0); VENOUS STANDARD HCO3 26.3 MEQ/L; VENOUS TOTAL CO2 27.6 MEQ/L (24.0-28.0)
[2016-08-21 16:28] LABS: INR 0.95
[2016-08-21] MEDS ORDERED: GASTROGRAFIN SOLUTION 30ML (Q9963) PO ONE (16:30)
[2016-08-21] MEDS ORDERED: VANCOMYCIN HCL 750 MG, VIAL MATE ADAPTER 1 EACH in D5W 250 ML IV ONE (17:00)
[2016-08-21] MEDS: PIPERACILLIN/TAZOBACTAM SOD 3.375 GM in D5W MINI-BAG PLUS 50 ML IV SCH (19:25)
[2016-08-21 20:00] VITALS: BP 105/59
[2016-08-21] MEDS: MIRTAZAPINE 15 MG TAB PO SCH (20:55)
[2016-08-21] MEDS: GABAPENTIN 300 MG CAP PO SCH (20:56)
[2016-08-21] MEDS: LITHIUM CARBONATE 300 MG CAP PO SCH (20:56)
[2016-08-21] MEDS: OLANZapine 10 MG TAB PO SCH (20:56)
[2016-08-21] MEDS: OXAZEPAM 15 MG CAP PO SCH (20:59)
[2016-08-21] MEDS ORDERED: IBUPROFEN 600 MG TAB PO PRN (21:30)
--- NOTE | 2016-08-21 22:40 | REPUSA ---
CLINICAL HISTORY: Right-sided abdominal pain. TECHNIQUE: CT abdomen and pelvis following administration of IV contrast. COMPARISON: No pertinent prior studies are available at this time. CT ABDOMEN WITH CONTRAST: Lung bases: No lung base infiltrate or effusion. Liver: No intrahepatic ductal dilation. Gallbladder: Contracted. Pancreas: No pancreatic duct dilation. Bowel loops: Nondistended. Spleen: Normal size. Adrenals: Normal size. Kidneys: No stones or hydronephrosis. Aorta: Normal caliber. Peritoneum: No free air. CT PELVIS WITH CONTRAST: Colon: Nondistended. Appendix: Normal appendix is seen. Bladder: Normally distended. Pelvic organs: Unremarkable. Peritoneum: No fluid. Skeleton: No acute findings. IMPRESSION: No acute abdominal findings.
[2016-08-21 23:59] VITALS: BP 121/57
[2016-08-22] MEDS: PIPERACILLIN/TAZOBACTAM SOD 3.375 GM in D5W MINI-BAG PLUS 50 ML IV SCH ×3 (00:43→12:11)
[2016-08-22 00:47] LABS: CONTROL LINE UCG INT CTR LINE PRESENT
[2016-08-22] MEDS: VANCOMYCIN HCL 1,000 MG, VIAL MATE ADAPTER 1 EACH in D5W 250 ML IV SCH ×4 (01:54→23:34)
[2016-08-22 04:00] VITALS: BP 108/56
[2016-08-22 05:39] LABS: BASO # 0.1 K/mm3 (0.0-0.2); BASO % 1.1 % (0.0-1.0); EOS # 0.4 K/mm3 (0.0-0.50); LARGE UNSTAINED CELL # 0.1 K/mm3 (0.0-0.4); LARGE UNSTAINED CELL % 1.1 % (0.0-4.0); LYMPH # 1.6 K/mm3 (1.5-6.5); LYMPH % 13.7 % (24.0-44.0); MEAN CORPUSCULAR HEMOGLOBIN 27.7 pg (27.0-33.0); MEAN CORPUSCULAR HGB CONC 33.2 g/dl (32.0-36.5); MEAN CORPUSCULAR VOLUME 83.3 fl (80.0-96.0); MONO # 0.5 K/mm3 (0.0-0.8); MONO % 4.6 % (0.0-5.0); NEUTROPHILS # 8.3 K/mm3 (1.8-7.7); NEUTROPHILS % 75.5 % (36.0-66.0); PLATELET COUNT, AUTOMATED 234 k/mm3 (150-450); RED CELL DISTRIBUTION WIDTH 13.7 % (11.5-14.5)
[2016-08-22] MEDS: LEVOTHYROXINE 0.05 MG TAB (50 MCG) PO SCH (05:45)
[2016-08-22] MEDS: NS 1,000 ML IV SCH ×2 (05:46→09:10)
[2016-08-22 06:03] LABS: ANION GAP 8 MEQ/L (8-16); BLOOD UREA NITROGEN 3 MG/DL (7-18); CALCIUM LEVEL 8.4 MG/DL (8.5-10.1); CARBON DIOXIDE LEVEL 26 MEQ/L (21-32); CHLORIDE LEVEL 109 MEQ/L (98-107); CREATININE FOR GFR 0.85 MG/DL (0.55-1.02); GLOMERULAR FILTRATION RATE > 60.0 (>60); GLUCOSE, FASTING 206 MG/DL (70-105); POTASSIUM SERUM 3.8 MEQ/L (3.5-5.1); SODIUM LEVEL 143 MEQ/L (136-145)
[2016-08-22 08:00] VITALS: BP 114/56
[2016-08-22] MEDS: ENOXAPARIN 40 MG/0.4 ML SYRINGE (J1650) SC SCH (08:33)
[2016-08-22] MEDS: GABAPENTIN 300 MG CAP PO SCH ×3 (08:34→20:19)
[2016-08-22] MEDS: OXAZEPAM 15 MG CAP PO SCH ×2 (08:34→20:19)
[2016-08-22] MEDS: VENLAFAXINE **XR** 75MG CAPSULE PO SCH (08:34)
[2016-08-22] MEDS: LITHIUM CARBONATE 300 MG CAP PO SCH ×2 (08:34→20:19)
[2016-08-22] MEDS: VENLAFAXINE **XR** 37.5 MG CAPSULE PO SCH (08:34)
[2016-08-22] MEDS: NICOTINE 21MG/24HR 1 EA TRANSDERMAL TD SCH (08:40)
[2016-08-22] MEDS ORDERED: CHLORASEPTIC SPRAY MT PRN (10:30)
[2016-08-22] MEDS ORDERED: LevoFLOXacin 500 MG in APPROPRIATE DILUENT 1 EA IV SCH (11:00)
--- NOTE | 2016-08-22 11:45 | IPNPDOC ---
Text Note Date of Service The patient was seen on 08/22/16 at 11:41. NOTE Subjective: Patient that she still is sore throat. Denies any shortness of breath or dysphagia. Objective: PHYSICAL EXAMINATION: Vitals: (see below) General: No acute distress, laying comfortably in bed. HEENT: Moist mucous membranes. Neck: No JVD or lymphadenopathy Cardiac: Tachycardic, No murmurs Pulm: Diminished breath sounds at the bases. B/l. No wheezing. + rhonchi Abd: RUQ tenderness to palpation. No rebound/guarding/rigidity.ND + BS Ext: 1+ pitting edema BLE. No cyanosis. Distal pulses intact. No erythema of the LE, however they do appear warm. Labs: Laboratory Tests 08/22/16 05:28 Calcium Level 8.4, Total Creatine Kinase 150, Red Blood Count 4.15, Mean Corpuscular Volume 83.3, Mean Corpuscular Hemoglobin 27.7, Mean Corpuscular Hemoglobin Concent 33.2, Red Cell Distribution Width 13.7, Neutrophils (%) (Auto ) 75.5, Lymphocytes (%) (Auto) 13.7, Monocytes (%) (Auto) 4.6, Eosinophils (%) ( Auto) 4.0, Basophils (%) (Auto) 1.1, Neutrophils # (Auto) 8.3, Lymphocytes # ( Auto) 1.6, Monocytes # (Auto) 0.5, Eosinophils # (Auto) 0.4, Basophils # (Auto) 0.1 Assessment/Plan 1. Sepsis, likely secondary to healthcare acquired pneumonia versus aspiration pneumonia. Patient has been tachycardic, febrile, with notable leukocytosis, elevated CRP, which are all improving. Continue vancomycin and Zosyn antibiotics. Follow blood and sputum cultures. Urine Legionella and strep. IV fluids. 2. Right upper quadrant pain- LFTs within normal limits. Patient states this has been chronic for years. CT abdomen and pelvis within normal limits. We'll check abdominal ultrasound quadrant. 3. Lower extremity edema- Patient had every been ordered echocardiogram will she has been inpatient mental health will need to follow-up on this. Patient also had lower extremity Doppler ultrasound which is negative. No cellulitis noted. Distal pulses intact. 4. Schizoaffective disorder with recent suicide attempt - we'll continue the patient's psychiatric medications as per psychiatry. Psychiatry will also be on consult. DVT prophylaxis- enoxaparin VS,Fishbone, I+O VS, Fishbone, I+O Laboratory Tests 08/22/16 05:28 Calcium Level 8.4 L, Total Creatine Kinase 150, Red Blood Count 4.15, Mean Corpuscular Volume 83.3, Mean Corpuscular Hemoglobin 27.7, Mean Corpuscular Hemoglobin Concent 33.2, Red Cell Distribution Width 13.7, Neutrophils (%) (Auto ) 75.5 H, Lymphocytes (%) (Auto) 13.7 L, Monocytes (%) (Auto) 4.6, Eosinophils ( %) (Auto) 4.0 H, Basophils (%) (Auto) 1.1 H, Neutrophils # (Auto) 8.3 H, Lymphocytes # (Auto) 1.6, Monocytes # (Auto) 0.5, Eosinophils # (Auto) 0.4, Basophils # (Auto) 0.1 Vital Signs Date Time Temp Pulse Resp B/P Pulse Ox O2 Delivery O2 Flow Rate FiO2 08/22/16 08:00 96.2 109 18 114/56 98 Room Air I&O- Last 24 Hours up to 6 AM 08/22/16 05:59 Intake Total 3690 ml Output Total 1050 ml Balance 2640 ml REMA ABDUL MD Aug 22, 2016 11:44
[2016-08-22 12:00] VITALS: BP 129/71
[2016-08-22 15:36] LABS: INR 1.01
[2016-08-22 16:00] VITALS: BP 115/62
[2016-08-22] MEDS: PANTOPRAZOLE 40MG INJ (PROTONIX) (C9113) IV SCH (16:22)
[2016-08-22 18:30] LABS: VENOUS BASE EXCESS -0.6 (-2.0-2.0); VENOUS O2 SATURATION 94.1 % (60.0-80.0); VENOUS PARTIAL PRESSURE CO2 37.1 mmHg (38.0-50.0); VENOUS PARTIAL PRESSURE O2 66.5 mmHg (30.0-50.0); VENOUS STANDARD HCO3 23.9 MEQ/L; VENOUS TOTAL CO2 24.7 MEQ/L (24.0-28.0)
[2016-08-22 18:43] LABS: ALBUMIN 2.5 GM/DL (3.2-5.2); ALBUMIN/GLOBULIN RATIO 0.74 (1.00-1.93); ALKALINE PHOSPHATASE 84 U/L (45-117); ALT/SGPT 23 U/L (12-78); ANION GAP 8 MEQ/L (8-16); AST/SGOT 13 U/L (15-37); BILIRUBIN,TOTAL 0.6 MG/DL (0.2-1.0); CARBON DIOXIDE LEVEL 27 MEQ/L (21-32); CHLORIDE LEVEL 107 MEQ/L (98-107); CREATININE FOR GFR 0.88 MG/DL (0.55-1.02); GLOMERULAR FILTRATION RATE > 60.0 (>60); GLUCOSE, FASTING 136 MG/DL (70-105); MAGNESIUM LEVEL 1.7 MG/DL (1.8-2.4); POTASSIUM SERUM 3.9 MEQ/L (3.5-5.1); SODIUM LEVEL 142 MEQ/L (136-145); TOTAL PROTEIN 5.9 GM/DL (6.4-8.2)
--- NOTE | 2016-08-22 19:00 | REPUSA ---
CLINICAL HISTORY: Fever. COMMENTS: A single frontal view of the chest was obtained without prior studies for comparison. The cardiac silhouette is within normal limits. There is no evidence of hilar enlargement. There is no evidence of a pulmonary nodule, infiltrate or atelectasis. There is no pleural effusion. No bony abnormalities are seen. IMPRESSION: Unremarkable chest. Thank you for your kind referral of this patient.
[2016-08-22 19:02] LABS: BLOOD UREA NITROGEN 1 MG/DL (7-18); LITHIUM LEVEL 0.24 MEQ/L (0.60-1.20)
[2016-08-22] MEDS ORDERED: SODIUM CHLORIDE 0.9% 1000 ML IV ONE (19:15)
--- NOTE | 2016-08-22 20:00 | PHACANCOPD ---
PHARMACY VANCOMYCIN DOSING Pt Demographics Demographics Patient Age:25 , Weight:75.400 , Gender: female Adjusted Body Weight Date: 08/21/16, Adjusted Body Weight: Kg Vancomycin Vancomycin indication: SIRS, likely sepsis Vancomycin Target Ranges: 15-20 mcg/ml Vancomycin Load Y/N: Yes Load Dose Date Time Vancomycin Load Dose: 1750mg Date: 08/21/16 Time: 1600 Vancomycin Dose Date: 08/21/16. Current Vancomycin Dose: [1g IV Q8H] Intermittent Dosing?: No Labs Micro Microbiology 08/21/16 Blood Culture - Preliminary, Resulted No growth after 24 hours . All specim... 08/21/16 Blood Culture - Preliminary, Resulted No growth after 24 hours . All specim... 08/22/16 Gram Stain - Final, Resulted 08/22/16 Sputum Culture, Resulted Pending 08/21/16 Respiratory Virus Panel (PCR) (TARYN) - Final, Complete Creatinine Clearance Date:08/21/16. Estimated Creatinine Clearance: ~[82.1 ml/min]. Pending Labs Vancomycin trough scheduled 08/22/16 @1500, 08/22 TROUGH REPORTED 18.4 Assessment and Plan Maintaining Current Dose?: Yes Reason for dose change: No Dose Change Pharmacist Note Pharmacist Note Date: 08/22/16. Pharmacist note:08/22 trough drawn@14:57 reported as 18.4,SCR=0.85 :will continue present regimen(1GM Q8H)and continue to follow SCR and levels Date: 08/21/16. Pharmacist note: Day #1 IV empiric levaquin/vancomycin initiated with a 1750mg loading dose, followed by a maintenance regimen of 1g IV Q8H for the treatment of SIRS/possible sepsis - aiming for a goal trough of 15-20 mcg/ ml. WBC, ESR, and CRP are currently elevated, and patient has been febrile within the past 24 hours. Urine and sputum cultures are pending. No PMH of MRSA or vanco use here at [facility]. A trough has been scheduled 08/22/16 @ 1500, prior to the 4th dose. We will continue to monitor and make adjustments as needed. [facility] Aug 22, 2016 20:00
[2016-08-22] MEDS: OLANZapine 10 MG TAB PO SCH (20:19)
[2016-08-22] MEDS: guaiFENesin ER 600 MG TAB PO SCH (20:19)
[2016-08-22] MEDS: MIRTAZAPINE 15 MG TAB PO SCH (20:19)
[2016-08-22] MEDS: LevoFLOXacin 500 MG in APPROPRIATE DILUENT 1 EA IV SCH (20:20)
[2016-08-22 20:28] VITALS: BP 118/56
--- NOTE | 2016-08-22 20:40 | REPUSA ---
History: Chest pain. Comparison: No prior CTA of the chest available Technique: A CT-pulmonary angiogram was performed. A dose of intravenous contrast was administered. A xial images were displayed, as were sagittal and coronal reconstructions. A 3-D model was also render ed. Exam DLP: Findings: Dense consolidations are noted in the right upper lobe left upper lobe as well as left lower lobe com patible with multifocal pneumonia. No CT evidence of pulmonary embolism is identified. There is no evidence of thoracic aortic aneurysm or dissection. There is no evidence of pulmonary edema. No pathologically enlarged hilar or mediastinal lymph nodes are identified. No significant pleural or pericardial fluid collection is seen. There is no evidence of pneumothorax. Mild degenerative changes are noted in the spine. The included portion of the upper abdomen does not show significant abnormality. Impression: No evidence of pulmonary embolism is identified. Multifocal pneumonia.
[2016-08-22] MEDS ORDERED: guaiFENesin 200 MG TAB PO SCH (21:00)
[2016-08-22 23:26] VITALS: BP 127/64
--- NOTE | 2016-08-22 23:54 | DS.PDOC ---
[facility] Discharge Summary Discharge Summary DATE OF ADMISSION: Aug 21, 2016 at 14:56 DATE OF DISCHARGE: 08/21/2016 Date of this interview: 08/21/2016 HISTORY: HOSPITALIZATION COURSE: TREATMENT AND PROGRESS ON THE UNIT: . MENTAL STATUS EXAMINATION ON DISCHARGE: Patient is a -year old female, who is [pleasant, cooperative, well kempt], [tall , overweight, thin, elderly, obese, frail build]. Speech: Is [pressured, tangential, circumstantial, flight of ideas, rate, volume, articulate, coherent, and spontaneous]. Thought processes: [Clear, Not goal-directed or Goal directed.] Rate of thoughts: . Thought content: [Irrational, Logical, Illogical, Tangential, Paranoid]. Abstract reasoning: . Computation: . Associations: [Loose, Tangential, Circumstantial, Intact]. Abnormal or psychotic thoughts: [Hallucinations, Delusions, Preoccupation with violence, Homicidal or suicidal ideation, and Obsessions.] Judgment: [Fair, Good, Very limited, Poor.] Insight: [Very limited, Good, Fair, Poor] Oriented to: [Time, place and person.] Recent and Remote Memory: [Immediate, short-term and long-term memory is intact] . Attention Span and Concentration: [Poor, Good, Fair]. Language: [Normal]. Fund of knowledge: [Adequate, Intact, Poor, Fair, Good]. Mood: [Irrational, Elated, Irritable, Depressed, Anxious, Restricted, Neutral]. Affect: [Appropriate, Reactive, Flat, Constricted, Animated, Irrational, Expansive, Restricted, Depressed, Anxious, Agitated, Hypomania, Lability]. VITAL SIGNS: Please see below. LABORATORY DATA: please see below. CONDITION ON DISCHARGE: DIAGNOSES ON DISCHARGE: 1. . 2. . 3. . MEDICATIONS ON DISCHARGE: - for . - for . - for . PLAN/FOLLOWUP ARRANGEMENTS: . The amount of time spent in the coordination of care for this patient was approximately minutes. Vital Signs Vital Sign - Last 24 Hours 08/21/16 08/22/16 08/22/16 08/22/16 23:59 04:00 08:00 12:00 Temp 99.5 95.6 96.2 97.6 Pulse 124 78 109 111 Resp 20 18 18 20 B/P 121/57 108/56 114/56 129/71 Pulse Ox 95 97 98 99 O2 Delivery Room Air Room Air Room Air Room Air 08/22/16 08/22/16 08/22/16 08/22/16 16:00 20:00 20:28 23:26 Temp 97.5 99.9 99.1 Pulse 125 119 114 Resp 18 18 22 B/P 115/62 118/56 127/64 Pulse Ox 98 97 98 O2 Delivery Room Air Room Air Room Air Room Air Laboratory Data Labs 24H Laboratory Tests 2 08/22/16 00:38: Urine Test NEGATIVE 08/22/16 05:28: Anion Gap 8, White Blood Count 11.0H, Red Blood Count 4.15, Hemoglobin 11.5L, Hematocrit 34.6L, Mean Corpuscular Volume 83.3, Mean Corpuscular Hemoglobin 27.7 , Mean Corpuscular Hemoglobin Concent 33.2, Red Cell Distribution Width 13.7, Platelet Count 234, Neutrophils (%) (Auto) 75.5H, Lymphocytes (%) (Auto) 13.7L, Monocytes (%) (Auto) 4.6, Eosinophils (%) (Auto) 4.0H, Basophils (%) (Auto) 1.1H , Neutrophils # (Auto) 8.3H, Lymphocytes # (Auto) 1.6, Monocytes # (Auto) 0.5, Eosinophils # (Auto) 0.4, Basophils # (Auto) 0.1, Blood Urea Nitrogen 3L, Creatinine 0.85, Sodium Level 143, Potassium Level 3.8, Chloride Level 109H, Carbon Dioxide Level 26, Calcium Level 8.4L, Total Creatine Kinase 150, Creatine Kinase MB 1.0, Creatine Kinase MB Relative Index 0.66, Glomerular Filtration Rate > 60.0, Large Unclassified Cells # 0.1, Large Unclassified Cells % 1.1, Troponin I < 0.02 08/22/16 14:57: Prothromb Time International Ratio 1.01, Prothrombin Time 13.4, Vancomycin Level Trough 18.4 08/22/16 18:01: Lactic Acid Level 2.5*H 08/22/16 18:02: Blood Urea Nitrogen 1#L, Creatinine 0.88, Sodium Level 142, Potassium Level 3.9 , Chloride Level 107, Carbon Dioxide Level 27, Calcium Level 8.0L, Aspartate Amino Transf (AST/SGOT) 13L, Alanine Aminotransferase (ALT/SGPT) 23, Alkaline Phosphatase 84, Total Bilirubin 0.6, Total Protein 5.9L, Albumin 2.5L, Albumin/ Globulin Ratio 0.74L, Anion Gap 8, Blood Gas Bicarbonate Standard 23.9, C- Reactive Protein, Quantitative 11.50H, Glomerular Filtration Rate > 60.0, [place] Level 0.24L, Magnesium Level 1.7L, Venous Blood Base Excess -0.6, Venous Blood pH 7.420, Venous Blood Partial Pressure CO2 37.1L, Venous Blood Partial Pressure O2 66.5H, Venous Blood Total Carbon Dioxide 24.7, Venous Blood HCO3 23.5, Venous Blood Oxygen Saturation 94.1H 08/22/16 23:40: CBC/BMP Laboratory Tests 08/22/16 05:28 Calcium Level 8.4 L, Total Creatine Kinase 150, Red Blood Count 4.15, Mean Corpuscular Volume 83.3, Mean Corpuscular Hemoglobin 27.7, Mean Corpuscular Hemoglobin Concent 33.2, Red Cell Distribution Width 13.7, Neutrophils (%) (Auto ) 75.5 H, Lymphocytes (%) (Auto) 13.7 L, Monocytes (%) (Auto) 4.6, Eosinophils ( %) (Auto) 4.0 H, Basophils (%) (Auto) 1.1 H, Neutrophils # (Auto) 8.3 H, Lymphocytes # (Auto) 1.6, Monocytes # (Auto) 0.5, Eosinophils # (Auto) 0.4, Basophils # (Auto) 0.1 08/22/16 18:02 Calcium Level 8.0 L, Aspartate Amino Transf (AST/SGOT) 13 L, Alanine Aminotransferase (ALT/SGPT) 23, Alkaline Phosphatase 84, Total Bilirubin 0.6, Total Protein 5.9 L, Albumin 2.5 L Microbiology Microbiology 08/21/16 Blood Culture - Preliminary, Resulted No growth after 24 hours . All specim... 08/21/16 Blood Culture - Preliminary, Resulted No growth after 24 hours . All specim... 08/22/16 Group A Streptococcus Screen (TARYN), Received Pending 08/22/16 Gram Stain - Final, Resulted 08/22/16 Sputum Culture, Resulted Pending 08/21/16 Respiratory Virus Panel (PCR) (TARYN) - Final, Complete Medications Scheduled ([Serax]) 15 MG PO Q12H BENZO WITHDRAWAL SYMPTOMS (Reported) Gabapentin (Neurontin) 600 Mg Tab 600 MG PO TID DEPRESSION (Reported) Levofloxacin Hemihydrate (Levaquin) 500 Mg Tab 500 MG PO DAILY@0600 BACTERIAL INFECTION (Reported) Levothyroxine Sodium (Synthroid) 50 Mcg Tab 50 MCG PO QAM Hypothyriodism ( Reported) [place] Carbonate ([place] Carbonate) 300 Mg Cap 300 MG PO BID MOOD STABILIZATION (Reported) Mirtazapine (Remeron) 15 Mg Tab 15 MG PO QHS DEPRESSION (Reported) Nicotine (Nicoderm Cq) 21 Mg/24 Hr Dis 21 MG TD DAILY NICOTINE USE D/O (Reported ) Olanzapine (Zyprexa) 10 Mg Tab 10 MG PO DAILY Biopolar (Reported) Venlafaxine Hydrochloride (Effexor Xr) 37.5 Mg Cap 37.5 MG PO DAILY DEPRESSION ( Reported) W/ 75 mg; 112.5 mg daily Venlafaxine Hydrochloride (Effexor Xr) 75 Mg Cap 75 MG PO DAILY DEPRESSION ( Reported) w/ 37.5mg; 112.5mg daily Scheduled PRN ([Mylanta]) 30 ML PO Q4HP PRN PRN HEARTBURN/INDIGESTION (Reported) Acetaminophen (Tylenol) 325 Mg Tab 650 MG PO Q6HP PRN PRN HEADACHE or DISCOMFORT (Reported) Ibuprofen (Advil) 200 Mg Cap 200 MG PO Q6HP PRN PRN PAIN (Reported) Milk Of Magnesia (Milk of Magnesia Concentr) 30 Ml Conc 30 ML PO DAILYPRN PRN PRN CONSTIPATION (Reported) Allergies Coded Allergies: Fluconazole (Verified Allergy, Severe, Anaphylaxis, 02/21/14) SUELLEN EARL MD Aug 22, 2016 23:54
--- NOTE | 2016-08-23 01:26 | ECGEPIP ---
Stationary ECG Study [facility] Test Date: 2016-08-22 Pat Name: KALI OMALLEY Department: Room: [place] [address] Gender: F [employer]: MANDI : 1990 Requested By: REMA ABDUL Order Number: [id number] Reading MD: Carlitos Dai Measurements Intervals [place] Rate: 124 P: 5 TX: 119 QRS: 80 QRSD: 84 T: -6 QT: 335 QTc: 482 Interpretive Statements SINUS TACHYCARDIA WITH SHORT TX INTERVAL NONSPECIFIC T-WAVE ABNORMALITY Last tracing on 08/21/2016 at 9:55:45. Patient remained tachycardic with a faster heart rate otherwise no significant changes Electronically Signed On 08-23-2016 1:26:28 EST by Carlitos Dai
[2016-08-23] MEDS: NS 1,000 ML IV SCH ×4 (04:09→23:49)
[2016-08-23] MEDS: LEVOTHYROXINE 0.05 MG TAB (50 MCG) PO SCH (05:02)
[2016-08-23 05:05] VITALS: BP 108/57
[2016-08-23 05:48] LABS: ANION GAP 8 MEQ/L (8-16); BLOOD UREA NITROGEN < 1 MG/DL (7-18); CALCIUM LEVEL 8.3 MG/DL (8.5-10.1); CARBON DIOXIDE LEVEL 26 MEQ/L (21-32); CHLORIDE LEVEL 110 MEQ/L (98-107); CREATININE FOR GFR 0.76 MG/DL (0.55-1.02); GLOMERULAR FILTRATION RATE > 60.0 (>60); GLUCOSE, FASTING 104 MG/DL (70-105); POTASSIUM SERUM 3.9 MEQ/L (3.5-5.1); SODIUM LEVEL 144 MEQ/L (136-145)
[2016-08-23 05:55] LABS: BASO # 0.1 K/mm3 (0.0-0.2); BASO % 0.7 % (0.0-1.0); EOS # 0.3 K/mm3 (0.0-0.50); LARGE UNSTAINED CELL # 0.2 K/mm3 (0.0-0.4); LARGE UNSTAINED CELL % 1.8 % (0.0-4.0); LYMPH # 2.2 K/mm3 (1.5-6.5); LYMPH % 22.2 % (24.0-44.0); MEAN CORPUSCULAR HEMOGLOBIN 27.4 pg (27.0-33.0); MONO # 0.8 K/mm3 (0.0-0.8); MONO % 8.5 % (0.0-5.0); NEUTROPHILS # 5.7 K/mm3 (1.8-7.7); NEUTROPHILS % 63.6 % (36.0-66.0); PLATELET COUNT, AUTOMATED 286 k/mm3 (150-450); RED CELL DISTRIBUTION WIDTH 13.7 % (11.5-14.5)
[2016-08-23] MEDS: VANCOMYCIN HCL 1,000 MG, VIAL MATE ADAPTER 1 EACH in D5W 250 ML IV SCH ×3 (07:39→23:49)
[2016-08-23] MEDS: GABAPENTIN 300 MG CAP PO SCH ×3 (07:39→20:56)
[2016-08-23] MEDS: VENLAFAXINE **XR** 37.5 MG CAPSULE PO SCH (07:40)
[2016-08-23] MEDS: OXAZEPAM 15 MG CAP PO SCH ×2 (07:40→20:57)
[2016-08-23] MEDS: VENLAFAXINE **XR** 75MG CAPSULE PO SCH (07:40)
[2016-08-23] MEDS: guaiFENesin ER 600 MG TAB PO SCH ×2 (07:40→20:55)
[2016-08-23] MEDS: LITHIUM CARBONATE 300 MG CAP PO SCH ×2 (07:40→20:56)
[2016-08-23] MEDS: NICOTINE 21MG/24HR 1 EA TRANSDERMAL TD SCH (07:41)
[2016-08-23 08:00] VITALS: BP 120/59
[2016-08-23 13:50] VITALS: BP 120/59
--- NOTE | 2016-08-23 14:08 | IPNPDOC ---
Text Note Date of Service The patient was seen on 08/23/16 at 14:04. NOTE Subjective: Patient that she still is sore throat. Denies any shortness of breath or dysphagia. Objective: PHYSICAL EXAMINATION: Vitals: (see below) General: No acute distress, laying comfortably in bed. HEENT: Moist mucous membranes. Neck: No JVD or lymphadenopathy Cardiac: RRR, No murmurs Pulm: Diminished breath sounds at the bases. B/l. No wheezing. + rhonchi Abd: RUQ tenderness improved. No rebound/guarding/rigidity.ND + BS Ext: 1+ pitting edema BLE below the ankle. No cyanosis. Distal pulses intact. No erythema of the LE, however they do appear warm. Labs: CTA chest on 08/22/16 Findings: Dense consolidations are noted in the right upper lobe left upper lobe as well as left lower lobe compatible with multifocal pneumonia. No CT evidence of pulmonary embolism is identified. There is no evidence of thoracic aortic aneurysm or dissection. There is no evidence of pulmonary edema. No pathologically enlarged hilar or mediastinal lymph nodes are identified. No significant pleural or pericardial fluid collection is seen. There is no evidence of pneumothorax. Mild degenerative changes are noted in the spine. The included portion of the upper abdomen does not show significant abnormality. Impression: No evidence of pulmonary embolism is identified. Multifocal pneumonia. Echocardiogram on 08/21/16 IMPRESSION: 1. Normal global left ventricular systolic and diastolic function. 2. Trace tricuspid regurgitation with a normal calculated pulmonary artery systolic pressure. 3. Trace pulmonic regurgitation. 4. No vegetations noted in this transthoracic echocardiogram. To consider a transesophageal echocardiogram if suspicion for endocarditis is a concern. Assessment/Plan 1. Sepsis, likely secondary to healthcare acquired pneumonia. Patient has been tachycardic, febrile, with notable leukocytosis, elevated CRP, which are all improving. CT a of the chest negative for PE however does know multifocal pneumonia. Continue vancomycin and Levaquin antibiotics. Follow blood and sputum cultures. Urine Legionella and strep. IV fluids. 2. Right upper quadrant pain- improving. LFTs within normal limits. Patient states this has been chronic for years. CT abdomen and pelvis within normal limits. Patient refused abdominal ultrasound of the right upper quadrant. 3. Lower extremity edema- possibly due to her psychiatric medications including olanzapine. Patient had every been ordered echocardiogram will she has been inpatient mental health will need to follow-up on this. Patient also had lower extremity Doppler ultrasound which is negative. No cellulitis noted. Distal pulses intact. 4. Schizoaffective disorder with recent suicide attempt - we'll continue the patient's psychiatric medications as per psychiatry. Psychiatry will also be on consult. DVT prophylaxis- enoxaparin VS,Fishbone, I+O VS, Fishbone, I+O Laboratory Tests 08/22/16 18:02 Calcium Level 8.0 L, Aspartate Amino Transf (AST/SGOT) 13 L, Alanine Aminotransferase (ALT/SGPT) 23, Alkaline Phosphatase 84, Total Bilirubin 0.6, Total Protein 5.9 L, Albumin 2.5 L 08/23/16 05:06 Calcium Level 8.3 L 08/23/16 05:07 Red Blood Count 4.22, Mean Corpuscular Volume 83.0, Mean Corpuscular Hemoglobin 27.4, Mean Corpuscular Hemoglobin Concent 33.0, Red Cell Distribution Width 13.7 , Neutrophils (%) (Auto) 63.6, Lymphocytes (%) (Auto) 22.2 L, Monocytes (%) ( Auto) 8.5 H, Eosinophils (%) (Auto) 3.0, Basophils (%) (Auto) 0.7, Neutrophils # (Auto) 5.7, Lymphocytes # (Auto) 2.2, Monocytes # (Auto) 0.8, Eosinophils # ( Auto) 0.3, Basophils # (Auto) 0.1 Vital Signs Date Time Temp Pulse Resp B/P Pulse Ox O2 Delivery O2 Flow Rate FiO2 08/23/16 08:00 96.9 97 20 120/59 97 Room Air I&O- Last 24 Hours up to 6 AM 08/23/16 05:59 Intake Total 5500 ml Output Total 4425 ml Balance 1075 ml Current Medications Current Medications Medications (Trade) Dose Ordered Sig/Brenda Route PRN Reason Start Time Stop Time Status Last Admin Dose Admin Enoxaparin Sodium 40 mg 40 mg DAILY SC 08/21/16 09:00 08/22/16 17:59 DC 08/22/16 08:33 Gabapentin (Neurontin) 600 mg TID PO 08/21/16 21:00 09/20/16 20:59 08/23/16 07:39 Guaifenesin (Robitussin) 400 mg BID PO 08/22/16 21:00 08/22/16 21:00 DC Guaifenesin 600 mg 600 mg BID PO 08/22/16 21:00 09/21/16 20:59 08/23/16 07:40 Ibuprofen (Motrin, Advil) 600 mg Q6HP PRN PO PAIN OR FEVER 08/21/16 21:30 09/20/16 21:29 08/21/16 22:12 Levofloxacin 500 mg/IV Miscellaneous Supplies 100 ml @ 100 mls/hr Q24H IV 08/22/16 11:00 08/22/16 11:00 DC Levofloxacin/IV Miscellaneous Supplies (Levaquin) 100 ml @ 100 mls/hr Q24H IV 08/22/16 20:00 08/29/16 19:59 08/22/16 20:20 Levothyroxine Sodium (Synthroid) 0.05 mg DAILY@06 PO 08/22/16 06:00 09/21/16 05:59 08/23/16 05:02 [place] Carbonate ([place] Carbonate) 300 mg BID PO 08/21/16 21:00 09/20/16 20:59 08/23/16 07:40 Mirtazapine (Remeron) 15 mg QHS PO 08/21/16 21:00 09/20/16 20:59 08/22/16 20:19 Nicotine (Nicoderm Cq 21mg) 1 patch DAILY TD 08/22/16 09:00 09/21/16 08:59 Olanzapine (ZyPREXA) 10 mg QHS PO 08/21/16 21:00 09/20/16 20:59 08/22/16 20:19 Oxazepam (Serax) 15 mg BID PO 08/21/16 21:00 08/28/16 20:59 08/23/16 07:40 Pantoprazole Sodium (Protonix) 40 mg Q24H IV 08/21/16 16:00 09/20/16 15:59 08/22/16 16:22 Phenol (Chloraseptic (Cepacol)) 1 spray Q2HP PRN MT SORE THROAT 08/22/16 10:30 09/21/16 10:29 Piperacillin Sod/ Tazobactam Sod/ Dextrose (Zosyn/Dextrose 5% Mini-Bag Plus) 50 ml @ 50 mls/hr Q6H IV 08/21/16 18:00 08/22/16 19:07 DC 08/22/16 12:11 Sodium Chloride (Nacl 0.9%) 1,000 ml @ 150 mls/hr Q6H40M IV 08/21/16 13:10 09/20/16 13:09 08/23/16 04:09 Vancomycin HCl 1000 mg/IV Miscellaneous Supplies 1 each/ Dextrose 270 ml @ 270 mls/hr Q8H IV 08/21/16 16:00 08/28/16 15:59 08/23/16 07:39 Venlafaxine HCl (Effexor Xr) 37.5 mg DAILY PO 08/22/16 09:00 09/21/16 08:59 08/23/16 07:40 Venlafaxine HCl (Effexor Xr) 75 mg DAILY PO 08/22/16 09:00 09/21/16 08:59 08/23/16 07:40 Allergies Coded Allergies: Fluconazole (Verified Allergy, Severe, Anaphylaxis, 02/21/14) REMA ABDUL MD Aug 23, 2016 14:08
[2016-08-23] MEDS: PANTOPRAZOLE 40MG INJ (PROTONIX) (C9113) IV SCH (15:50)
[2016-08-23] MEDS: OLANZapine 10 MG TAB PO SCH (20:55)
[2016-08-23] MEDS: LevoFLOXacin 500 MG in APPROPRIATE DILUENT 1 EA IV SCH (20:55)
[2016-08-23] MEDS: MIRTAZAPINE 15 MG TAB PO SCH (20:56)
[2016-08-23 22:00] VITALS: BP 100/50
[2016-08-24 06:00] VITALS: BP 117/72
[2016-08-24] MEDS: VANCOMYCIN HCL 1,000 MG, VIAL MATE ADAPTER 1 EACH in D5W 250 ML IV SCH (06:30)
[2016-08-24] MEDS: LEVOTHYROXINE 0.05 MG TAB (50 MCG) PO SCH (06:30)
[2016-08-24] MEDS: NS 1,000 ML IV SCH (06:31)
[2016-08-24 06:35] LABS: BASO # 0.1 K/mm3 (0.0-0.2); BASO % 1.2 % (0.0-1.0); EOS # 0.4 K/mm3 (0.0-0.50); EOS % 5.4 % (0.0-3.0); LARGE UNSTAINED CELL # 0.2 K/mm3 (0.0-0.4); LARGE UNSTAINED CELL % 2.8 % (0.0-4.0); LYMPH % 27.3 % (24.0-44.0); MEAN CORPUSCULAR HEMOGLOBIN 27.7 pg (27.0-33.0); MEAN CORPUSCULAR HGB CONC 33.2 g/dl (32.0-36.5); MEAN CORPUSCULAR VOLUME 83.6 fl (80.0-96.0); MONO # 0.5 K/mm3 (0.0-0.8); MONO % 7.4 % (0.0-5.0); NEUTROPHILS # 3.7 K/mm3 (1.8-7.7); NEUTROPHILS % 55.9 % (36.0-66.0); PLATELET COUNT, AUTOMATED 311 k/mm3 (150-450); RED CELL DISTRIBUTION WIDTH 13.6 % (11.5-14.5); WHITE BLOOD COUNT 6.7 K/mm3 (4.0-10.0)
[2016-08-24 06:39] LABS: ANION GAP 7 MEQ/L (8-16); BLOOD UREA NITROGEN < 1 MG/DL (7-18); CALCIUM LEVEL 8.8 MG/DL (8.5-10.1); CARBON DIOXIDE LEVEL 28 MEQ/L (21-32); CHLORIDE LEVEL 109 MEQ/L (98-107); CREATININE FOR GFR 0.82 MG/DL (0.55-1.02); GLOMERULAR FILTRATION RATE > 60.0 (>60); GLUCOSE, FASTING 88 MG/DL (70-105); POTASSIUM SERUM 4.1 MEQ/L (3.5-5.1); SODIUM LEVEL 144 MEQ/L (136-145)
[2016-08-24] MEDS: NICOTINE 21MG/24HR 1 EA TRANSDERMAL TD SCH (07:36)
[2016-08-24] MEDS: GABAPENTIN 300 MG CAP PO SCH ×3 (07:54→20:27)
[2016-08-24] MEDS: OXAZEPAM 15 MG CAP PO SCH ×2 (07:55→20:27)
[2016-08-24] MEDS: VENLAFAXINE **XR** 37.5 MG CAPSULE PO SCH (07:55)
[2016-08-24] MEDS: LITHIUM CARBONATE 300 MG CAP PO SCH ×2 (07:55→20:26)
[2016-08-24] MEDS: guaiFENesin ER 600 MG TAB PO SCH ×2 (07:55→20:27)
[2016-08-24] MEDS: VENLAFAXINE **XR** 75MG CAPSULE PO SCH (07:55)
[2016-08-24] MEDS ORDERED: ONDANSETRON 4MG/2ML VIAL (J2405) IV PRN (08:45)
[2016-08-24 14:00] VITALS: BP 108/52
[2016-08-24] MEDS ORDERED: AVEL1TAB PO (14:27)
[2016-08-24] MEDS ORDERED: SERAX PO (14:27)
[2016-08-24] MEDS: PANTOPRAZOLE 40MG INJ (PROTONIX) (C9113) IV SCH (14:58)
--- NOTE | 2016-08-24 15:19 | DSES ---
DATE OF ADMISSION: 08/21/2016 DATE OF DISCHARGE: 08/24/2016 Specialists involved in care include Dr. Hamlin. No complications during her stay. No procedures performed during her stay. DISCHARGE DIAGNOSES: 1. Major depressive disorder. 2. Sepsis, related to healthcare-associated pneumonia. 3. Right upper quadrant pain. 4. Schizoaffective disorder with recent suicide attempt. The following is a summary of her hospitalization: This is a 25-year-old who was on the mental health unit, had tried to overdose on heroin and Xanax. She had developed a productive cough and green sputum, the hospitalist group was consulted for fevers. She was admitted with a diagnosis of multifocal pneumonia and was started on antibiotics and improved markedly. Diet was advanced. She feels ready to return to the mental health unit. She did vomit on the morning of discharge but it is because she gorged on a large amount of [place] toast and was able to tolerate lunch since. On the day of discharge, temperature is 97.3, pulse 81, respiratory rate 16, blood pressure 108/52, 98% on room air. She is awake, appropriately interactive, pleasantly conversant. Breathing is symmetrical, rested. I:E ratio is 1:3. Heart is in a regular rate and rhythm. Abdomen soft, doughy, nontender. Creatinine is 0.82. White cell count is 6.7. DISCHARGE INSTRUCTIONS: Include the following: Followup with primary care provider as arranged at discharge from inpatient mental health unit (IM). Diet and activity as tolerated. Continue with: - moxifloxacin 400 mg by mouth daily for five more days - Tylenol as needed every 6 hours for headache or pain - Neurontin 600 mg by mouth three times a day - Motrin as needed - Synthroid 50 mcg by mouth every morning - lithium 300 mg by mouth twice daily - Milk of Magnesia as needed for constipation - Remeron 15 mg by mouth daily at bedtime - nicotine patch 21 mg daily - Zyprexa 10 mg by mouth daily - Effexor 112.5 mg daily - Mylanta as needed - Serax as needed for withdrawal
[2016-08-24] MEDS: LevoFLOXacin 500 MG in APPROPRIATE DILUENT 1 EA IV SCH (20:00)
[2016-08-24] MEDS: MIRTAZAPINE 15 MG TAB PO SCH (20:26)
--- NOTE | 2016-08-24 20:26 | CR ---
PSYCHIATRIC CONSULTATION: 08/24/2016 CHIEF COMPLAINT: Feels depressed. SUBJECTIVE: She is 35 years old. She has history of depression, polysubstance dependence. She had recently attempted suicide, was admitted to the inpatient psychiatry unit on August 14, seen there, please refer to those summaries, including the one by Dr. Gibbons, for details regarding the circumstances of the admission. While she was there, she developed medical complications, had pneumonia, was transferred to the inpatient medical floor, and I was called today by Dr. Hagen as the patient is now medically stable, ready for return to the inpatient psychiatry unit. She has been struggling with depression, polysubstance use as well, had recently overdosed on heroin and xanax. Stressors included father's recently, and her being homeless. Her mother has flown in from [place] and I met her briefly, at the patient's bedside with the patient's permission. PAST PSYCHIATRIC HISTORY: Please refer to previously dictated summaries. PAST MEDICAL HISTORY: Please refer to previously dictated summaries. As stated previously, the patient has had pneumonia, has been treated for it, and is now deemed stable. She essentially remains depressed, and does not think her treatment has been completed at the psychiatry unit. She had also been noted, some question that she has diagnosis of schizoaffective disorder, but I am not currently aware of the details. MENTAL STATUS EXAM: She is sitting up in bed. She is cooperative. There is no agitation. No psychomotor retardation. She is coherent. Affect is restricted, but reactive. Currently no evidence of psychosis. Cognition grossly intact. Judgment and insight remain compromised. ASSESSMENT: Unspecified depressive disorder. Polysubstance use disorder. Rule out major depressive disorder. Rule out schizoaffective disorder. She has been deemed medically stable, ready for transfer back to the inpatient psychiatry unit. She has been depressed, suicidal, attempted taking her life recently. RECOMMENDATIONS: I would suggest that she is admitted to the inpatient psychiatry unit, and applications for [facility] admission is made. Mother requests that a form is filled to help her present it to her work place in [place], so that she is not penalized for coming to see her daughter. I have directed her to the treatment team at the inpatient psychiatry unit, to assist her with that. Thank you for the consult. If any questions, please call. The assessment took 15 minutes.
[2016-08-24] MEDS: OLANZapine 10 MG TAB PO SCH (20:27)
[2016-08-26 00:06] LABS: OLANZAPINE (ZYPREXA) LEVEL 76.7 ng/ml (10.0 - 80.0)
[2016-08-27 08:08] LABS: MIRTAZAPINE (REMERON) LEVEL 48.7 ng/ml (4.0 - 40.0)
== END 2016-08-24 20:32 | DRG 720 ==
LOC: M PCU 14:56 → M MSPAV 08-23 13:47
PROVIDERS: ADMIT Internal Medicine; ATTEND Internal Medicine
DX: A41.9 Sepsis, unspecified organism (principal); J18.9 Pneumonia, unspecified organism; R45.851 Suicidal ideations; R10.11 Right upper quadrant pain; E03.9 Hypothyroidism, unspecified; R60.0 Localized edema; F25.9 Schizoaffective disorder, unspecified; F19.90 Other psychoactive substance use, unspecified, uncomplicated; F32.9 Major depressive disorder, single episode, unspecified; Z79.899 Other long term (current) drug therapy; Z91.5 Personal history of self-harm; Z81.8 Family history of other mental and behavioral disorders; Z88.8 Allergy status to other drugs, medicaments and biological substances

== ENCOUNTER 2016-08-24 20:40 | Inpatient (IN) | payer MEDICAID, SELFPAY ==
[~2016-08-24] VITALS: Ht 157.5 cm; Wt 73.3 kg
[~2016-08-24 20:40] MED LIST changes: +ADVI200C5 PO; +AVEL1TAB PO; +LEVA500T PO; +LITH300C PO; +MOM30SS PO; +MYLATAB PO; +NEUR600T PO; +NICO21DI5 TD; +SERAX PO; +TYLE325T5 PO
[2016-08-24 22:42] VITALS: BP 130/82
[2016-08-24] MEDS ORDERED: MOM 30ML SUSPENSION UDC PO PRN (23:15)
[2016-08-24] MEDS ORDERED: MAALOX 30 ML SUSP *UDC PO PRN (23:15)
[2016-08-25] MEDS: LEVOTHYROXINE 0.05 MG TAB (50 MCG) PO SCH (06:31)
[2016-08-25 06:33] VITALS: BP 90/57
[2016-08-25] MEDS: OXAZEPAM 15 MG CAP PO SCH ×2 (07:54→20:19)
[2016-08-25] MEDS: GABAPENTIN 300 MG CAP PO SCH ×3 (07:55→20:20)
[2016-08-25] MEDS: VENLAFAXINE 37.5 MG TAB PO SCH (07:55)
[2016-08-25] MEDS: LITHIUM CARBONATE 300 MG CAP PO SCH ×2 (07:55→20:20)
[2016-08-25] MEDS: NICOTINE 21MG/24HR 1 EA TRANSDERMAL TD SCH (09:00)
[2016-08-25] MEDS ORDERED: VENLAFAXINE 37.5 MG TAB PO SCH (09:00)
--- NOTE | 2016-08-25 10:18 | HPEPDOC ---
Medical History and Physical Date of Admission Aug 24, 2016 at 20:40 History and Physical PCP: None ATTENDING: Dr. Flo Hagen HPI: 25yoF admitted to [facility] for depressive disorder, being medically examined today. The patient was admitted from 08/21/16-08/24/16 for treatment of HCAP. She was felt stable to transfer to [facility] 08/24/16. Denies any fevers, chills, weakness , fatigue, SIMMONS, CP, SOB, cough, palpitations, abdominal pain, N/V/D or changes in bowel or bladder habits. PMHx: Hypothyroidism Substance use Depression Anxiety PSHX: Tonsillectomy Myringotomy SOCHX: Resides in: Homeless Marital Status: Single Kids: None Employment: Unemployed Tobacco use: One pack per day ETOH: Denies Illicit Drugs: Heroin, amphetamines, benzodiazepines, cocaine IV Drug Use: Heroin Tattoos done unprofessionally: Denies FAMHX: Mother: Alive, depression Unexpected deaths due to medical reasons: None. ROS: As noted in HPI, otherwise 11pt ROS of systems reviewed and remarkable only for LMP 06/24/16 PE: GEN: 25 yoF, appears stated age. Well-nourished, well developed. No acute distress. Alert and oriented x 3. Pleasant, interactive. HEENT: Normocephalic, atraumatic. Pupils are equal, round, and reactive to light. Extraocular movements are intact. No nystagmus appreciated. Sclera are nonicteric. Conjunctiva without injection. Nose midline. Nasal turbinates without bogginess. EACs both patent BL. TMs both visualized and talbot with good cone of light, no bulging or erythema. No facial asymmetry. Moist mucous membranes. Dentition fair. Pharynx pink and moist, no cobblestoning. Neck supple , trachea midline. No lymphadenopathy or thyromegaly appreciated. CHEST: Regular rate and rhythm, +S1, +S2 LUNGS: Clear to auscultation bilaterally. No wheezes, rales, or rhonchi. Breathing appears symmetric and easy. Patient is speaking in full sentences. No accessory muscle use. ABD: Round, soft, non-tender, non-distended. +Bowel sounds throughout. No rebound or guarding. No costovertebral angle tenderness. EXT: Pulses 2+ bilaterally dorsalis pedis and radial. No lower extremity edema appreciated. SKIN: [place], dry, warm. Capillary refill <2sec. No rashes. NEURO: Alert and oriented x 3. Cranial nerves III-XII are intact. No focal deficits appreciated. EK08/22/16. SINUS TACHYCARDIA WITH SHORT NC INTERVAL NONSPECIFIC T-WAVE ABNORMALITY A&P: 25yoF admitted to [facility] for depressive disorder 1. Psych. Plan per Psychiatry. EKG on file. 2. Nicotine dependence. Patch available. 3. HCAP. Moxifloxacin 400 mg daily for an additional 5 days. 4. Follow up. No Primary Care Provider. Will attempt to establish PCP on discharge. 5. Hypothyroidism. Continue Synthroid 50 g daily. 6. Substance use. Per psychiatry. Vital Signs Vital Signs Label Value Date Time Patient Temperature 97.1 degrees F 08/25/16 0633 Temperature Source Tympanic 08/25/16 0633 Pulse 65 08/25/16 0633 Respiratory Rate 20 bpm 08/25/16 0633 Blood Pressure Assessment 90/57 (68) 08/25/16 0633 Blood Pressure Assessment 130/82 (98) 08/24/16 2242 Laboratory Data Labs 24H Item Value Date Time White Blood Count 6.7 K/mm3 08/24/16 0607 Red Blood Count 4.34 M/mm3 08/24/16 0607 Hemoglobin 12.1 g/dl 08/24/16 0607 Hematocrit 36.3 % 08/24/16 0607 Mean Corpuscular Volume 83.6 fl 08/24/16 0607 Mean Corpuscular Hemoglobin 27.7 pg 08/24/16 0607 Mean Corpuscular Hemoglobin Concent 33.2 g/dl 08/24/16 0607 Red Cell Distribution Width 13.6 % 08/24/16 0607 Platelet Count 311 k/mm3 08/24/16 0607 Sodium Level 144 MEQ/L 08/24/16 0607 Potassium Level 4.1 MEQ/L 08/24/16 0607 Chloride Level 109 MEQ/L H 08/24/16 0607 Carbon Dioxide Level 28 MEQ/L 08/24/16 0607 Blood Urea Nitrogen < 1 MG/DL L 08/24/16 0607 Creatinine 0.82 MG/DL 08/24/16 0607 Aspartate Amino Transf (AST/SGOT) 13 U/L L 08/22/16 1802 Alanine Aminotransferase (ALT/SGPT) 23 U/L 08/22/16 1802 Thyroid Stimulating Hormone (TSH) 0.982 uIU/ML 08/18/16 1018 Human Chorionic Gonadotropin, Qual NEGATIVE 08/13/16 1726 Home Medications Scheduled Gabapentin (Neurontin) 600 Mg Tab 600 MG PO TID DEPRESSION Levothyroxine Sodium (Synthroid) 50 Mcg Tab 50 MCG PO QAM Hypothyriodism Casper Carbonate (Casper Carbonate) 300 Mg Cap 300 MG PO BID MOOD STABILIZATION Mirtazapine (Remeron) 15 Mg Tab 15 MG PO QHS DEPRESSION Moxifloxacin Hydrochloride (Avelox) 400 Mg Tab 400 MG PO DAILY Nicotine (Nicoderm Cq) 21 Mg/24 Hr Dis 21 MG TD DAILY NICOTINE USE D/O Olanzapine (Zyprexa) 10 Mg Tab 10 MG PO DAILY Biopolar Venlafaxine Hydrochloride (Effexor Xr) 37.5 Mg Cap 37.5 MG PO DAILY DEPRESSION W/ 75 mg; 112.5 mg daily Venlafaxine Hydrochloride (Effexor Xr) 75 Mg Cap 75 MG PO DAILY DEPRESSION w/ 37.5mg; 112.5mg daily Scheduled PRN ([Mylanta]) 30 ML PO Q4HP PRN PRN HEARTBURN/INDIGESTION ([Serax]) 15 MG PO Q12HP PRN PRN BENZO WITHDRAWAL SYMPTOMS Acetaminophen (Tylenol) 325 Mg Tab 650 MG PO Q6HP PRN PRN HEADACHE or DISCOMFORT Ibuprofen (Advil) 200 Mg Cap 200 MG PO Q6HP PRN PRN PAIN Milk Of Magnesia (Milk of Magnesia Concentr) 30 Ml Conc 30 ML PO DAILYPRN PRN PRN CONSTIPATION Allergies Coded Allergies: Fluconazole (Verified Allergy, Severe, Anaphylaxis, 02/21/14) Yu Reyna Aug 25, 2016 10:18
[2016-08-25] MEDS: MOXIFLOXACIN 400 MG TAB PO SCH (11:49)
[2016-08-25 18:00] VITALS: BP 130/76
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
[2016-08-25] MEDS: MIRTAZAPINE 15 MG TAB PO SCH (20:19)
[2016-08-25] MEDS: OLANZapine 10 MG TAB PO SCH (20:20)
[2016-08-26] MEDS: LEVOTHYROXINE 0.05 MG TAB (50 MCG) PO SCH (06:12)
[2016-08-26] MEDS: MOXIFLOXACIN 400 MG TAB PO SCH (06:12)
[2016-08-26 06:46] VITALS: BP 99/54
[2016-08-26] MEDS: LITHIUM CARBONATE 300 MG CAP PO SCH ×2 (08:08→20:24)
[2016-08-26] MEDS: VENLAFAXINE 37.5 MG TAB PO SCH ×2 (08:08→20:24)
[2016-08-26] MEDS: GABAPENTIN 300 MG CAP PO SCH ×3 (08:08→20:24)
[2016-08-26] MEDS: OXAZEPAM 15 MG CAP PO SCH (08:08)
[2016-08-26] MEDS: NICOTINE 21MG/24HR 1 EA TRANSDERMAL TD SCH (08:10)
--- NOTE | 2016-08-26 14:02 | IPNPDOC ---
[facility] Progress Note Progress Note Entry made in error Vital Signs Vital Signs Date Time Temp Pulse Resp B/P Pulse Ox O2 Delivery O2 Flow Rate FiO2 08/26/16 06:46 96.0 64 16 99/54 Current Medications Current Medications Medications (Trade) Dose Ordered Sig/Brenda Route PRN Reason Start Time Stop Time Status Last Admin Dose Admin Al Hydrox/Mg Hydrox/Simethicone (Mylanta) 30 ml Q4HP PRN PO HEARTBURN/INDIGESTION 08/24/16 23:15 09/23/16 23:14 Gabapentin (Neurontin) 600 mg TID PO 08/25/16 09:00 09/24/16 08:59 08/26/16 08:08 Ibuprofen (Motrin, Advil) 600 mg Q6HP PRN PO PAIN 08/24/16 23:15 09/23/16 23:14 Levothyroxine Sodium (Synthroid) 0.05 mg DAILY@06 PO 08/25/16 06:00 09/24/16 05:59 08/26/16 06:12 [place] Carbonate ([place] Carbonate) 300 mg BID PO 08/25/16 09:00 09/24/16 08:59 08/26/16 08:08 Magnesium Hydroxide (Milk Of Magnesia) 30 ml DAILYPRN PRN PO CONSTIPATION 08/24/16 23:15 09/23/16 23:14 Mirtazapine (Remeron) 15 mg QHS PO 08/25/16 21:00 09/24/16 20:59 08/25/16 20:19 Moxifloxacin HCl (Avelox) 400 mg DAILY@06 PO 08/25/16 06:00 09/01/16 05:59 08/26/16 06:12 Nicotine (Nicoderm Cq 21mg) 1 patch DAILY TD 08/25/16 09:00 09/24/16 08:59 Olanzapine (ZyPREXA) 10 mg QHS PO 08/25/16 21:00 09/24/16 20:59 08/25/16 20:20 Oxazepam (Serax) 15 mg BID PO 08/25/16 09:00 09/01/16 08:59 08/26/16 08:08 Trazodone HCl (Desyrel) 50 mg QHSP PRN PO INSOMNIA 08/24/16 23:15 09/23/16 23:14 Venlafaxine HCl (Effexor) 75 mg DAILY PO 08/25/16 09:00 08/25/16 09:00 DC Venlafaxine HCl (Effexor) 112.5 mg DAILY PO 08/25/16 09:00 09/24/16 08:59 08/26/16 08:08 Allergies Coded Allergies: Fluconazole (Verified Allergy, Severe, Anaphylaxis, 02/21/14) Eladia Sierra Aug 26, 2016 14:01 Oxazepam (Serax) 15 mg BID PO 08/25/16 09:00 09/01/16 08:59 08/26/16 08:08 Trazodone HCl (Desyrel) 50 mg QHSP PRN PO INSOMNIA 08/24/16 23:15 09/23/16 23:14 Venlafaxine HCl (Effexor) 75 mg DAILY PO 08/25/16 09:00 08/25/16 09:00 DC Venlafaxine HCl (Effexor) 112.5 mg DAILY PO 08/25/16 09:00 09/24/16 08:59 08/26/16 08:08 Allergies Coded Allergies: Fluconazole (Verified Allergy, Severe, Anaphylaxis, 02/21/14) Eladia Sierra Aug 26, 2016 14:01
[2016-08-26 18:00] VITALS: BP 113/56
--- NOTE | 2016-08-26 18:45 | IPNPDOC ---
[facility] Progress Note Progress Note DATE OF SERVICE: 08/26/16 HISTORY OF PRESENT ILLNESS: Photocomposition Keyboard Operator met with patient today to evaluate treatment progress on inpatient unit. Patient informs information writer she had spoken with securities attorney and Bridge community engagement representative and is now feeling motivated for discharge, is aware she will be going to detention, but has reportedly been informed that she will be allowed to participate in the Bridge program. Patient again makes request for Effexor dose increase, reminds information writer she was taking the 112.5 mg po q a.m. and 75 mg po q hs, indicates medication is been very effective in the past at reducing symptoms of depression and denies history of side effects. Patient states she is "not sure, but maybe" experiencing irritability related to lithium, however, indicates she does not want medication discontinued and declines dosing adjustment to see if medication is able to regulate mood better. Patient was also provided with Serax upon return to inpatient psych unit, verbalizes today motivation to taper and be off medication by Tuesday in preparation for discharge to detention. Logistics of taper were discussed with patient who verbalizes understanding and agreement with plan to discontinue medication. Patient denies all symptoms of craving or withdrawal at this time. Patient reports 6/10 depression, 3/10 anxiety, denies suicidal and homicidal ideation, denies audiovisual hallucinations, denies urge to engage in self-injurious behavior. Patient presents with reduced irritability and impulsivity, indicates she has been sleeping well and denies nightmares symptoms. Patient indicates energy level continues to improve post treatment on medical floor denies all pneumonia related symptoms reports low- grade pain to legs which she indicates she has reported to nursing. Patient denies challenges with concentration and focus indicates her appetite is stable. VITALS: See below NEW TEST RESULTS: Please see below. [place] level on 08/22/16 0.24 PAST MEDICAL HISTORY: According to the chart, patient has history of hypothyroidism. Denies any other physical health challenges. Patient has a history of tonsillectomy and myrogotomy. Patient denies history of head injury, loss of consciousness, seizures, or acute medical problems. Patient overdosed on Xanax and IV heroin prior to admission which occurred just prior to her being treated on medical floor for pneumonia. Labs on recent prior admission indicated low potassium and calcium, elevated TSH. PA is monitoring TSH. HCG negative on admission. UDS positive for amphetamines, benzodiazepines, cocaine, opiates on admission. 08/16/16 EKG sinus bradycardia. Hep C pending. Labs repeated on 08/18/16 with glucose high at 141 and T3 low at 29. 08/21/16 EKG - SINUS TACHYCARDIA WITH SHORT [place] INTERVAL NONSPECIFIC T-WAVE ABNORMALITY. Last tracing on 08/21/2016 at 9:55:45. Patient remained tachycardic with a faster heart rate otherwise no significant changes. MENTAL STATUS EXAMINATION: Patient is 25-year-old single female who is calm and cooperative, generally engageable, has adequate personal hygiene makes adequate eye contact, and appears stated age. Patient requests meeting with information writer today , indicates she feels ready to prepare for discharge and has plan to go to detention and then participate in the Bridge program. Patient is up out of bed, dressed in own clothing, has tended to ADLs, is easily engaged, and makes good eye contact. Speech: Is of normal rate, rhythm, volume, coherent Thought processes: Clear, logical Rate of thoughts: Within normal limits. Thought content: Logical, rational, no indication of paranoia. Abstract reasoning: Appears within normal limits Description of associations: Intact. Description of abnormal or psychotic thoughts: Reports history of, and intermittent audio hallucinations, denies at present and denies other symptoms of hallucinations, delusions, preoccupation with violence, Homicidal or suicidal ideation, and obsessions Judgment: Poor Insight: Poor Oriented to: Time, place and person. Recent and Remote Memory: Appears intact. Attention Span and Concentration: Limited. Language: Within normal limits. Fund of knowledge: Adequate Mood: "I'm feeling pretty good and I want to go to the Bridge program." No tearfulness today, no lability noted Affect: Mild constriction but brighter today, congruent with affect. DIAGNOSES: Unspecified depressive disorder. Rule out major depression. Polysubstance use disorder. ASSESSMENT: Patient is 25-year-old single female who recently returned from the medical floor after being treated for pneumonia, today appears calm and cooperative, is visible on unit, rests in room between groups. Patient is adjusting to unit, is isolating less and is engaging selectively, spending time on phone. Patient presents with no signs of irritability, agitation or mood lability at time of interaction. Patient makes request for Effexor dose increase , questions effectiveness of lithium but declines to have information writer discontinue or change dose, indicates she feels prepared for Serax taper in preparation for going to detention and then Bridge program "so I can move on with my life." Patient indicates balance of current psychotropic medication regimen remains effective and she denies medication side effects. Will continue to monitor patient's adjustment to the inpatient setting and will monitor patient's response to Effexor dose increase. Changes to medication regimen, indicates medications are currently effective and denies medication side effects. Current psychotropic medication regimen is as follows: [place] 300 mg po hs started by other provider Effexor XR - remains at 112.5 mg po q am, will monitor for need to reduce or discontinue if patient continues to complain of mood instability Zyprexa 10 mg po q hs Gabapentin - increased to 600 mg po TID by other provider Remeron 15 mg po hs Trazodone 50 mg po hs PRN insomnia Serax 15 mg po BID Patient is aware of planned Serax taper. Patient was encouraged to participate in unit programming to facilitate the development of effective coping mechanisms. Patient denies suicidal and homicidal ideation and further denies urge to engage in self-injurious behavior, and is able to effectively participate in the safety planning process verbalizing awareness of how to access support on unit when needed. Patient is currently homeless and continues to verbalize awareness that she could benefit from inpatient substance abuse treatment. Patient has begun actively planning for discharge early next week to detention and then to Bridge program. Patient remains hopeful that the sling operator will allow her to attend the Bridge program and receive methadone maintenance. Will continue to monitor patient's response to inpatient treatment and medications. MANAGEMENT PLAN: Continue current medication as outlined above. Begin Serax taper (med orders already entered). Maintain safety precautions Patient to attend groups and participate in unit programming to develop coping strategies Engage patient in discharge planning process and arrange meeting with support system to ensure safe discharge planning when appropriate. sports coordinator is in process of arranging discharge logistics with patient's PO Patient to follow up with PCM upon discharge ESTIMATED LENGTH OF STAY: 7-10 days. TIME SPENT: 35 minutes Vital Signs Vital Signs Date Time Temp Pulse Resp B/P Pulse Ox O2 Delivery O2 Flow Rate FiO2 08/26/16 06:46 96.0 64 16 99/54 Current Medications Current Medications Medications (Trade) Dose Ordered Sig/Brenda Route PRN Reason Start Time Stop Time Status Last Admin Dose Admin Al Hydrox/Mg Hydrox/Simethicone (Mylanta) 30 ml Q4HP PRN PO HEARTBURN/INDIGESTION 08/24/16 23:15 09/23/16 23:14 Gabapentin (Neurontin) 600 mg TID PO 08/25/16 09:00 09/24/16 08:59 08/26/16 17:00 Ibuprofen (Motrin, Advil) 600 mg Q6HP PRN PO PAIN 08/24/16 23:15 09/23/16 23:14 Levothyroxine Sodium (Synthroid) 0.05 mg DAILY@06 PO 08/25/16 06:00 09/24/16 05:59 08/26/16 06:12 [place] Carbonate ([place] Carbonate) 300 mg BID PO 08/25/16 09:00 09/24/16 08:59 08/26/16 08:08 Magnesium Hydroxide (Milk Of Magnesia) 30 ml DAILYPRN PRN PO CONSTIPATION 08/24/16 23:15 09/23/16 23:14 Mirtazapine (Remeron) 15 mg QHS PO 08/25/16 21:00 09/24/16 20:59 08/25/16 20:19 Moxifloxacin HCl (Avelox) 400 mg DAILY@06 PO 08/25/16 06:00 09/01/16 05:59 08/26/16 06:12 Nicotine (Nicoderm Cq 21mg) 1 patch DAILY TD 08/25/16 09:00 09/24/16 08:59 Olanzapine (ZyPREXA) 10 mg QHS PO 08/25/16 21:00 09/24/16 20:59 08/25/16 20:20 Oxazepam (Serax) 15 mg BID PO 08/25/16 09:00 08/26/16 18:06 DC 08/26/16 08:08 Oxazepam (Serax) 15 mg BID PO 08/26/16 21:00 08/26/16 22:00 UNV Oxazepam (Serax) 15 mg QHS PO 08/27/16 21:00 08/27/16 21:00 DC Oxazepam (Serax) 15 mg QHS PO 08/27/16 21:00 08/28/16 22:00 UNV Trazodone HCl (Desyrel) 50 mg QHSP PRN PO INSOMNIA 08/24/16 23:15 09/23/16 23:14 Venlafaxine HCl (Effexor) 37.5 mg QHS PO 08/26/16 21:00 09/25/16 20:59 Venlafaxine HCl (Effexor) 75 mg DAILY PO 08/25/16 09:00 08/25/16 09:00 DC Venlafaxine HCl (Effexor) 112.5 mg DAILY PO 08/25/16 09:00 09/24/16 08:59 08/26/16 08:08 Allergies Coded Allergies: Fluconazole (Verified Allergy, Severe, Anaphylaxis, 02/21/14) Eladia Sierra Aug 26, 2016 18:45
[2016-08-26] MEDS: MIRTAZAPINE 15 MG TAB PO SCH (20:24)
[2016-08-26] MEDS: OLANZapine 10 MG TAB PO SCH (20:24)
[2016-08-26] MEDS ORDERED: OXAZEPAM 15 MG CAP PO SCH (21:00)
[2016-08-27] MEDS: MOXIFLOXACIN 400 MG TAB PO SCH (06:15)
[2016-08-27] MEDS: LEVOTHYROXINE 0.05 MG TAB (50 MCG) PO SCH (06:15)
[2016-08-27 06:42] VITALS: BP 119/58
[2016-08-27] MEDS: LITHIUM CARBONATE 300 MG CAP PO SCH ×2 (08:01→20:11)
[2016-08-27] MEDS: VENLAFAXINE 37.5 MG TAB PO SCH ×2 (08:02→20:12)
[2016-08-27] MEDS: GABAPENTIN 300 MG CAP PO SCH ×3 (08:02→20:12)
[2016-08-27] MEDS: NICOTINE 21MG/24HR 1 EA TRANSDERMAL TD SCH (08:03)
[2016-08-27 18:00] VITALS: BP 122/74
--- NOTE | 2016-08-27 19:52 | IPNPDOC ---
[facility] Progress Note Progress Note DATE OF SERVICE: 08/27/16 HISTORY OF PRESENT ILLNESS: Microsoft Architect met with patient today to evaluate treatment progress on inpatient unit. Patient informs resume writer she remains on track for detention and Bridge program, states she has been accepted and appears very satisfied with discharge plan. Patient indicates Effexor dose very helpful , makes no request for additional dose increase, indicates current medication regimen is very effective and denies medication side effects. Patient remains on track with Serax taper, denies concerns and denies symptoms of craving or withdrawal. Logistics of taper have been discussed with patient who verbalizes understanding and agreement with plan to discontinue medication. Patient reports low level symptoms of anxiety and depression, denies suicidal and homicidal ideation, denies audiovisual hallucinations, denies urge to engage in self-injurious behavior. Patient presents with reduced irritability and impulsivity, indicates she has been sleeping well and denies nightmares symptoms. Patient indicates energy level continues to improve post treatment on medical floor, today denies all physical pain. Patient denies challenges with concentration and focus indicates her appetite is stable. VITALS: See below NEW TEST RESULTS: Please see below. [place] level on 08/22/16 0.24 PAST MEDICAL HISTORY: According to the chart, patient has history of hypothyroidism. Denies any other physical health challenges. Patient has a history of tonsillectomy and myrogotomy. Patient denies history of head injury, loss of consciousness, seizures, or acute medical problems. Patient overdosed on Xanax and IV heroin prior to admission which occurred just prior to her being treated on medical floor for pneumonia. Labs on recent prior admission indicated low potassium and calcium, elevated TSH. DE is monitoring TSH. HCG negative on admission. UDS positive for amphetamines, benzodiazepines, cocaine, opiates on admission. 08/16/16 EKG sinus bradycardia. Hep C pending. Labs repeated on 08/18/16 with glucose high at 141 and T3 low at 29. 08/21/16 EKG - SINUS TACHYCARDIA WITH SHORT [place] INTERVAL NONSPECIFIC T-WAVE ABNORMALITY. Last tracing on 08/21/2016 at 9:55:45. Patient remained tachycardic with a faster heart rate otherwise no significant changes. MENTAL STATUS EXAMINATION: Patient is 25-year-old single female who is calm and cooperative, very engageable, has good personal hygiene makes good eye contact, and appears stated age. Patient requests meeting with resume writer today, indicates she feels ready to prepare for discharge and has plan to go to detention and then participate in the Bridge program. Patient is up out of bed, dressed in own clothing, has tended to ADLs, is easily engaged. Speech: Is of normal rate, rhythm, volume, coherent Thought processes: Clear, logical Rate of thoughts: Within normal limits. Thought content: Logical, rational, no indication of paranoia. Abstract reasoning: Appears within normal limits Description of associations: Intact. Description of abnormal or psychotic thoughts: Reports history of audio hallucinations and denies all recent symptoms, denies other symptoms of hallucinations, delusions, preoccupation with violence, Homicidal or suicidal ideation, and obsessions Judgment: Fair Insight: Fair, continues to improve Oriented to: Time, place and person. Recent and Remote Memory: Appears intact. Attention Span and Concentration: Limited. Language: Within normal limits. Fund of knowledge: Adequate Mood: "I'm feeling really excited about going to the Bridge program, I feel like I'm going to get my life back." No tearfulness today, no lability noted Affect: Full range, brightens easily, congruent with affect. DIAGNOSES: Unspecified depressive disorder. Rule out major depression. Polysubstance use disorder. ASSESSMENT: Patient is 25-year-old single female who recently returned from the medical floor after being treated for pneumonia, today appears calm and cooperative, is visible on unit, rests in room between groups. Patient is adjusting to unit, is isolating less and is engaging selectively, spending time on phone, is observed to be laughing and joking at times. Patient presents with no signs of irritability, agitation or mood lability at time of interaction. Patient indicates today current medication regimen is effective, denies need for dosing adjustments, and denies medication side effects. Will continue to monitor patient's adjustment to the inpatient setting and will monitor patient' s response to Effexor dose increase. Changes to medication regimen, indicates medications are currently effective and denies medication side effects. Current psychotropic medication regimen is as follows: [place] 300 mg po hs started by other provider Effexor - 112.5 mg po q am and 37.5 mg po q hs, will continue to monitor for need for dosing adjustment if mood lability is present Zyprexa - 10 mg po q hs Gabapentin - increased to 600 mg po TID by other provider Remeron 15 mg po hs Trazodone 50 mg po hs PRN insomnia Serax 15 mg po BID Patient is aware of planned Serax taper. Patient was encouraged to participate in unit programming to facilitate the development of effective coping mechanisms. Patient denies suicidal and homicidal ideation and further denies urge to engage in self-injurious behavior, and is able to effectively participate in the safety planning process verbalizing awareness of how to access support on unit when needed. Patient is currently homeless and continues to verbalize awareness that she could benefit from inpatient substance abuse treatment. Patient has begun actively planning for discharge early next week to detention and then to Bridge program. Patient remains hopeful that the manager story will allow her to attend the Bridge program and receive methadone maintenance. Will continue to monitor patient's response to inpatient treatment and medications. MANAGEMENT PLAN: Continue current medication as outlined above. Complete Serax taper (med orders already entered). Maintain safety precautions [place] level ordered in preparation for discharge Patient to attend groups and participate in unit programming to develop coping strategies Engage patient in discharge planning process and arrange meeting with support system to ensure safe discharge planning when appropriate. web marketing coordinator is in process of arranging discharge logistics with patient's PO with tentative discharge date of Tuesday Patient to follow up with PCM upon discharge TIME SPENT: 35 minutes Vital Signs Vital Signs Date Time Temp Pulse Resp B/P Pulse Ox O2 Delivery O2 Flow Rate FiO2 08/27/16 18:00 97.1 80 14 122/74 Current Medications Current Medications Medications (Trade) Dose Ordered Sig/Brenda Route PRN Reason Start Time Stop Time Status Last Admin Dose Admin Al Hydrox/Mg Hydrox/Simethicone (Mylanta) 30 ml Q4HP PRN PO HEARTBURN/INDIGESTION 08/24/16 23:15 09/23/16 23:14 Gabapentin (Neurontin) 600 mg TID PO 08/25/16 09:00 09/24/16 08:59 08/27/16 15:20 Ibuprofen (Motrin, Advil) 600 mg Q6HP PRN PO PAIN 08/24/16 23:15 09/23/16 23:14 Levothyroxine Sodium (Synthroid) 0.05 mg DAILY@06 PO 08/25/16 06:00 09/24/16 05:59 08/27/16 06:15 [place] Carbonate ([place] Carbonate) 300 mg BID PO 08/25/16 09:00 09/24/16 08:59 08/27/16 08:01 Magnesium Hydroxide (Milk Of Magnesia) 30 ml DAILYPRN PRN PO CONSTIPATION 08/24/16 23:15 09/23/16 23:14 Mirtazapine (Remeron) 15 mg QHS PO 08/25/16 21:00 09/24/16 20:59 08/26/16 20:24 Moxifloxacin HCl (Avelox) 400 mg DAILY@06 PO 08/25/16 06:00 09/01/16 05:59 08/27/16 06:15 Nicotine (Nicoderm Cq 21mg) 1 patch DAILY TD 08/25/16 09:00 09/24/16 08:59 Olanzapine (ZyPREXA) 10 mg QHS PO 08/25/16 21:00 09/24/16 20:59 08/26/16 20:24 Oxazepam (Serax) 15 mg BID PO 08/25/16 09:00 08/26/16 18:06 DC 08/26/16 08:08 Oxazepam (Serax) 15 mg BID PO 08/26/16 21:00 08/26/16 22:00 DC 08/26/16 20:24 Oxazepam (Serax) 15 mg QHS PO 08/27/16 21:00 08/27/16 21:00 DC Oxazepam (Serax) 15 mg QHS PO 08/27/16 21:00 08/28/16 22:00 Trazodone HCl (Desyrel) 50 mg QHSP PRN PO INSOMNIA 08/24/16 23:15 09/23/16 23:14 Venlafaxine HCl (Effexor) 37.5 mg QHS PO 08/26/16 21:00 09/25/16 20:59 08/26/16 20:24 Venlafaxine HCl (Effexor) 75 mg DAILY PO 08/25/16 09:00 08/25/16 09:00 DC Venlafaxine HCl (Effexor) 112.5 mg DAILY PO 08/25/16 09:00 09/24/16 08:59 08/27/16 08:02 Allergies Coded Allergies: Fluconazole (Verified Allergy, Severe, Anaphylaxis, 02/21/14) Eladia Sierra Aug 27, 2016 19:52
[2016-08-27] MEDS: traZODone 50 MG TAB PO PRN (20:11)
[2016-08-27] MEDS: OLANZapine 10 MG TAB PO SCH (20:11)
[2016-08-27] MEDS: OXAZEPAM 15 MG CAP PO SCH (20:12)
[2016-08-27] MEDS: MIRTAZAPINE 15 MG TAB PO SCH (20:12)
[2016-08-27] MEDS: IBUPROFEN 600 MG TAB PO PRN (20:44)
[2016-08-27] MEDS ORDERED: OXAZEPAM 15 MG CAP PO SCH (21:00)
[2016-08-28] MEDS: MOXIFLOXACIN 400 MG TAB PO SCH (06:05)
[2016-08-28] MEDS: LEVOTHYROXINE 0.05 MG TAB (50 MCG) PO SCH (06:05)
[2016-08-28 06:41] VITALS: BP 95/51
[2016-08-28] MEDS: VENLAFAXINE 37.5 MG TAB PO SCH ×2 (08:24→20:00)
[2016-08-28] MEDS: LITHIUM CARBONATE 300 MG CAP PO SCH ×2 (08:24→19:59)
[2016-08-28] MEDS: GABAPENTIN 300 MG CAP PO SCH ×3 (08:24→20:00)
[2016-08-28] MEDS: NICOTINE 21MG/24HR 1 EA TRANSDERMAL TD SCH (08:25)
[2016-08-28 18:00] VITALS: BP 142/68
[2016-08-28] MEDS: traZODone 50 MG TAB PO PRN (19:59)
[2016-08-28] MEDS: OLANZapine 10 MG TAB PO SCH (19:59)
[2016-08-28] MEDS: OXAZEPAM 15 MG CAP PO SCH (19:59)
[2016-08-28] MEDS: MIRTAZAPINE 15 MG TAB PO SCH (20:00)
[2016-08-28] MEDS: IBUPROFEN 600 MG TAB PO PRN (20:01)
--- NOTE | 2016-08-29 03:42 | IPN ---
DATE OF SERVICE: 08/28/2016 SUBJECTIVE: "You have taken me out of all my medications." OBJECTIVE: Patient was requesting to be placed back on BuSpar. I discussed the treatment plan with the patient and encouraged her to discuss her pharmacological treatment with her primary care provider. She is improving. She feels that can be discharged on Tuesday, but again I encouraged her to discuss discharge planning with her primary provider. MENTAL STATUS EXAMINATION: Patient is dressed in [facility]. Patient is cooperative. Speech is normal in rate, volume and articulation. Mood is depressed and anxious, but improved from admission. Affect is congruent with mood. No delusions or hallucinations. Short and long-term memory are fair. Patient is fully oriented. Associations are intact. Thinking is logical. Thought content is appropriate. Patient is able to contract for safety and denies suicidal or homicidal ideation during the interview. Insight and judgment is limited. ASSESSMENT: 1. Depression. 2. Polysubstance abuse. PLAN: 1. Continue tapering Serax. 2. Continue with Effexor 112 mg by mouth every morning plus 37.5 mg daily. 3. Continue with Zyprexa 10 mg by mouth nightly. 4. Continue with Remeron 15 mg by mouth nightly. 5. Continue with lithium 300 mg by mouth twice a day. 6. Continue gabapentin 600 mg by mouth twice a day. 7. Continue with trazodone as needed for insomnia. 8. Continue medication management, individual and group therapy.
[2016-08-29] MEDS: LEVOTHYROXINE 0.05 MG TAB (50 MCG) PO SCH (06:04)
[2016-08-29] MEDS: MOXIFLOXACIN 400 MG TAB PO SCH (06:04)
[2016-08-29 06:26] VITALS: BP 94/50
[2016-08-29] MEDS: LITHIUM CARBONATE 300 MG CAP PO SCH ×2 (07:58→20:25)
[2016-08-29] MEDS: VENLAFAXINE 37.5 MG TAB PO SCH ×2 (07:58→20:26)
[2016-08-29] MEDS: GABAPENTIN 300 MG CAP PO SCH ×3 (07:59→20:26)
[2016-08-29] MEDS: NICOTINE 21MG/24HR 1 EA TRANSDERMAL TD SCH (07:59)
[2016-08-29 18:00] VITALS: BP 113/63
[2016-08-29] MEDS: traZODone 50 MG TAB PO PRN (20:25)
[2016-08-29] MEDS: OLANZapine 10 MG TAB PO SCH (20:25)
[2016-08-29] MEDS: MIRTAZAPINE 15 MG TAB PO SCH (20:26)
[2016-08-30] MEDS: LEVOTHYROXINE 0.05 MG TAB (50 MCG) PO SCH (06:10)
[2016-08-30] MEDS: MOXIFLOXACIN 400 MG TAB PO SCH (06:10)
[2016-08-30 06:34] VITALS: BP 95/53
[2016-08-30] MEDS: LITHIUM CARBONATE 300 MG CAP PO SCH (08:01)
[2016-08-30] MEDS: GABAPENTIN 300 MG CAP PO SCH (08:01)
[2016-08-30] MEDS: VENLAFAXINE 37.5 MG TAB PO SCH (08:02)
[2016-08-30] MEDS: NICOTINE 21MG/24HR 1 EA TRANSDERMAL TD SCH (08:02)
[2016-08-30] MEDS ORDERED: NICO21PAT TD (08:22)
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
[2016-08-30] MEDS ORDERED: LITH300C PO (10:49)
[2016-08-30] MEDS ORDERED: NEUR600T PO (10:49)
[2016-08-30] MEDS ORDERED: ZYPR10TA PO (10:49)
[2016-08-30] MEDS ORDERED: EFFE37.527 PO (10:52)
== END 2016-08-30 12:30 | disposition home or self-care (01) | DRG 753 ==
LOC: M PSY 20:40
PROVIDERS: ADMIT Psychiatry & Neurology Psychiatry; ATTEND Psychiatry & Neurology Psychiatry
DX: F31.9 Bipolar disorder, unspecified (principal); J18.9 Pneumonia, unspecified organism; Z91.19 Patient's noncompliance with other medical treatment and regimen; F12.90 Cannabis use, unspecified, uncomplicated; F11.90 Opioid use, unspecified, uncomplicated; E03.9 Hypothyroidism, unspecified; F19.94 Other psychoactive substance use, unspecified with psychoactive substance-induced mood disorder; F17.200 Nicotine dependence, unspecified, uncomplicated

== ENCOUNTER → 2017-01-04 | Outpatient (REF) | payer SELFPAY ==
[~2017-01-04] MED LIST changes: +NICO21PAT TD
[2017-01-04 19:16] LABS: FREE T4 1.07 NG/DL (0.76-1.46)
[2017-01-04 19:22] LABS: LITHIUM LEVEL 0.6 MEQ/L (0.60-1.20)
== END ==
LOC: M LAB REF 17:19
PROVIDERS: ATTEND Surgery
DX: Z51.81 Encounter for therapeutic drug level monitoring (principal); Z79.899 Other long term (current) drug therapy

== ENCOUNTER → 2018-05-04 | Outpatient (CLI) | payer MEDICAID | LOC: M OUTALCOH 12:26 | DX: Z13.89 Encounter for screening for other disorder (principal); F11.10 Opioid abuse, uncomplicated ==

== ENCOUNTER 2018-05-15 10:24 | Outpatient (RCR) | payer MEDICAID | END 2018-05-24 | LOC: M OUTALCOH 05-18 10:00 | DX: F11.10 Opioid abuse, uncomplicated (principal) ==

== ENCOUNTER → 2018-05-22 | Outpatient (REF) | payer MEDICAID | LOC: M LAB REF 10:19 | DX: L02.416 Cutaneous abscess of left lower limb (principal) | CPT/HCPCS: 87077; 87186 ==

== ENCOUNTER 2018-05-25 14:18 | Outpatient (RCR) | payer MEDICAID | END 2018-06-23 | LOC: M OUTALCOH 05-26 14:00 | DX: F11.10 Opioid abuse, uncomplicated (principal) ==

== ENCOUNTER → 2018-07-11 | Outpatient (REF) | payer MEDICAID ==
[~2018-07-11] MED LIST changes: -AVEL1TAB PO; +AVEL1TAB3 PO; +EFFE37.5 PO; -EFFE37.527 PO; +EFFE75CA2 PO; -EFFE75CA75 PO; +LEVA1TAB2 PO; -LEVA500T PO; +TRAZ-160 PO; -TRAZ50TA4 PO
[2018-07-11 17:19] LABS: ALBUMIN 3.6 GM/DL (3.2-5.2); ALT/SGPT 27 U/L (12-78); BILIRUBIN,TOTAL 0.5 MG/DL (0.2-1.0); BLOOD UREA NITROGEN 9 MG/DL (7-18); CALCIUM LEVEL 8.5 MG/DL (8.5-10.1); CARBON DIOXIDE LEVEL 28 MEQ/L (21-32); CHLORIDE LEVEL 105 MEQ/L (98-107); CREATININE FOR GFR 0.62 MG/DL (0.55-1.30); FERRITIN 16 NG/ML (8-252); FREE T4 0.88 NG/DL (0.76-1.46); GLOMERULAR FILTRATION RATE > 60.0 (>60); GLUCOSE, FASTING 83 MG/DL (70-100); SODIUM LEVEL 141 MEQ/L (136-145); TOTAL PROTEIN 6.9 GM/DL (6.4-8.2)
[2018-07-12 12:36] LABS: HEPATITIS C VIRUS ABY INDEX 2.7 INDEX (<0.8)
== END ==
LOC: M SFHCPLAZ 12:37
PROVIDERS: ATTEND Family Medicine
DX: G25.81 Restless legs syndrome (principal); E03.9 Hypothyroidism, unspecified; R76.8 Other specified abnormal immunological findings in serum

== ENCOUNTER 2018-07-21 10:16 | Outpatient (RCR) | payer MEDICAID ==
[~2018-07-21 10:16] MED LIST changes: -NICO21DI5 TD; +NICO21DI6 TD
== END 2018-07-24 ==
LOC: M OUTALCOH 10:16
PROVIDERS: ATTEND Psychiatry & Neurology Psychiatry
DX: F11.10 Opioid abuse, uncomplicated (principal)

== ENCOUNTER 2018-07-30 21:25 | Emergency (ER) | payer MEDICAID, OTHER ==
[~2018-07-30] VITALS: Ht 157.5 cm; Wt 59.1 kg
[2018-07-30] MEDS ORDERED: metroNIDAZOLE (FLAGYL) 500 MG TAB PO ONE (22:45)
[2018-07-30] MEDS ORDERED: FLAG500T PO (22:47)
[2018-07-30 22:53] VITALS: BP 149/65
[2018-07-30 23:52] LABS: CHLAMYDIA DNA AMPLIFICATION NEGATIVE (NEGATIVE); GC DNA AMPLIFICATION NEGATIVE (NEGATIVE)
== END 2018-07-30 22:55 | disposition home or self-care (01) ==
LOC: M ED 21:25
DX: N76.0 Acute vaginitis (principal); F90.9 Attention-deficit hyperactivity disorder, unspecified type; F25.9 Schizoaffective disorder, unspecified; F33.9 Major depressive disorder, recurrent, unspecified; F41.9 Anxiety disorder, unspecified; Z79.899 Other long term (current) drug therapy; Z79.891 Long term (current) use of opiate analgesic; Z79.890 Hormone replacement therapy; Z88.8 Allergy status to other drugs, medicaments and biological substances; F17.210 Nicotine dependence, cigarettes, uncomplicated

== ENCOUNTER 2018-08-12 10:06 | Emergency (ER) | payer OTHER ==
[~2018-08-12] VITALS: Ht 157.5 cm; Wt 63.6 kg
[~2018-08-12 10:06] MED LIST changes: +FLAG500T PO
[2018-08-12] MEDS ORDERED: TRAZ-163 (10:16)
[2018-08-12] MEDS ORDERED: SUBO8MIS (10:16)
[2018-08-12] MEDS ORDERED: CITA20TA4 (10:16)
[2018-08-12] MEDS ORDERED: AMPHET/DEXTR PO (10:16)
[2018-08-12] MEDS ORDERED: TOPI25TA10 (10:16)
[2018-08-12 11:36] VITALS: BP 102/0
== END 2018-08-12 11:38 | disposition home or self-care (01) ==
LOC: M ED 10:06
DX: F32.9 Major depressive disorder, single episode, unspecified (principal); F98.8 Other specified behavioral and emotional disorders with onset usually occurring in childhood and adolescence; F41.9 Anxiety disorder, unspecified; F17.200 Nicotine dependence, unspecified, uncomplicated; F11.10 Opioid abuse, uncomplicated; Z88.1 Allergy status to other antibiotic agents; Z79.899 Other long term (current) drug therapy

== ENCOUNTER 2018-09-11 10:58 | Emergency (ER) | payer MEDICAID, OTHER ==
[~2018-09-11] VITALS: Ht 157.5 cm; Wt 63.6 kg
[~2018-09-11 10:58] MED LIST changes: +AMPHET/DEXTR PO; +CITA20TA4; +SUBO8MIS; +TOPI25TA10; +TRAZ-163
[2018-09-11 10:59] VITALS: BP 117/63
[2018-09-11] MEDS ORDERED: GEOD20CA14 (11:05)
[2018-09-11] MEDS ORDERED: METH20TA31 (11:05)
[2018-09-11] MEDS ORDERED: AUGM875T28 PO (12:35)
== END 2018-09-11 12:40 | disposition home or self-care (01) ==
LOC: M ED 10:58
DX: R59.0 Localized enlarged lymph nodes (principal); S02.5XXA Fracture of tooth (traumatic), initial encounter for closed fracture; X58.XXXA Exposure to other specified factors, initial encounter; Y92.89 Other specified places as the place of occurrence of the external cause; E03.9 Hypothyroidism, unspecified; F17.200 Nicotine dependence, unspecified, uncomplicated; Z88.8 Allergy status to other drugs, medicaments and biological substances; Z79.899 Other long term (current) drug therapy

== ENCOUNTER → 2018-09-18 | Outpatient (CLI) | payer OTHER ==
[~2018-09-18] MED LIST changes: +AUGM875T28 PO; +GEOD20CA14; +METH20TA31
== END ==
LOC: M OUTALCOH 12:41
PROVIDERS: ATTEND Psychiatry & Neurology Psychiatry
DX: F11.20 Opioid dependence, uncomplicated (principal)

== ENCOUNTER 2018-10-04 11:30 | Outpatient (RCR) | payer OTHER | END 2018-10-22 | LOC: M OUTALCOH 11:30 | PROVIDERS: ATTEND Psychiatry & Neurology Psychiatry | DX: F11.20 Opioid dependence, uncomplicated (principal); F17.200 Nicotine dependence, unspecified, uncomplicated ==

== ENCOUNTER 2018-11-20 08:45 | Outpatient (RCR) | payer OTHER ==
[~2018-11-20 08:45] MED LIST changes: -BUPR15TAXL PO; +BUPR1TAB43 PO; -CITA20TA4; +CITA20TA6
== END 2018-11-21 ==
LOC: M OUTALCOH 08:45
PROVIDERS: ATTEND Psychiatry & Neurology Psychiatry
DX: F11.20 Opioid dependence, uncomplicated (principal); F17.200 Nicotine dependence, unspecified, uncomplicated

== ENCOUNTER → 2018-11-27 | Outpatient (REF) | payer OTHER ==
[2018-11-27 16:21] LABS: HCG, SERUM QUANTITATIVE < 1.0 MIU/ML
[2018-11-27 17:06] LABS: HIV 1&2 SCREEN CENTAUR NEGATIVE (NEGATIVE)
[2018-11-27 22:06] LABS: CHLAMYDIA DNA AMPLIFICATION NEGATIVE (NEGATIVE); GC DNA AMPLIFICATION NEGATIVE (NEGATIVE)
== END ==
LOC: M SFHCPLAZ 13:30
PROVIDERS: ATTEND Family Medicine
DX: Z11.9 Encounter for screening for infectious and parasitic diseases, unspecified (principal); A64 Unspecified sexually transmitted disease; Z01.411 Encounter for gynecological examination (general) (routine) with abnormal findings; Z72.51 High risk heterosexual behavior

== ENCOUNTER → 2018-12-22 | Outpatient (RCR) | payer OTHER | LOC: M OUTALCOH 11-22 08:13 | PROVIDERS: ATTEND Psychiatry & Neurology Psychiatry | DX: F11.20 Opioid dependence, uncomplicated (principal); F17.200 Nicotine dependence, unspecified, uncomplicated ==

== ENCOUNTER 2019-01-16 09:00 | Outpatient (RCR) | payer OTHER ==
[~2019-01-16 09:00] MED LIST changes: -TRAZ-160 PO; +TRAZ-252 PO
== END 2019-01-21 ==
LOC: M OUTALCOH 09:00
PROVIDERS: ATTEND Psychiatry & Neurology Psychiatry
DX: F11.20 Opioid dependence, uncomplicated (principal); F17.200 Nicotine dependence, unspecified, uncomplicated; F15.10 Other stimulant abuse, uncomplicated

== ENCOUNTER 2019-02-10 08:59 | Emergency (ER) | payer OTHER ==
[~2019-02-10] VITALS: Ht 157.5 cm; Wt 65.3 kg
[~2019-02-10 08:59] MED LIST changes: -TRAZ-163; +TRAZ-163 PO
[2019-02-10 11:09] VITALS: BP 103/72
--- NOTE | 2019-02-10 19:19 | ECGEPIP ---
[facility] - ED Test Date: 2019-02-10 Pat Name: KALI OMALLEY Department: Room: - Gender: Female Clinical Writer: JOSUÉ : 1990 Requested By: Gisselle Cobb PA-C Order Number: [id number] Reading MD: Simi Florez Measurements Intervals [place] Rate: 71 P: 19 [place]: 131 QRS: 78 QRSD: 86 T: 37 QT: 409 QTc: 444 Interpretive Statements SINUS RHYTHM DELAYED R WAVE PROGRESSION SHORT [place] INTERVAL NONSPECIFIC ST T WAVE CHANGES CW 08/22/[address] T WAVE CHANGES Electronically Signed on 02-10-2019 19:19:05 EDT by Simi Florez
== END 2019-02-10 12:03 | disposition home or self-care (01) ==
LOC: M ED 08:59
DX: R55 Syncope and collapse (principal); E03.9 Hypothyroidism, unspecified; B19.20 Unspecified viral hepatitis C without hepatic coma; F90.9 Attention-deficit hyperactivity disorder, unspecified type; F25.9 Schizoaffective disorder, unspecified; Z72.0 Tobacco use; Z79.899 Other long term (current) drug therapy; Z88.8 Allergy status to other drugs, medicaments and biological substances

== ENCOUNTER 2019-02-12 12:26 | Inpatient (IN) | payer OTHER ==
[~2019-02-12] VITALS: Ht 157.5 cm; Wt 65.0 kg
[2019-02-12 13:17] LABS: HEMOGLOBIN 13.8 g/dl (12.0-15.5); MEAN CORPUSCULAR HEMOGLOBIN 28.4 pg (27.0-33.0); MEAN CORPUSCULAR HGB CONC 33.7 g/dl (32.0-36.5); MEAN CORPUSCULAR VOLUME 84.4 fl (80.0-96.0); PLATELET COUNT, AUTOMATED 249 10^3/uL (150-450); RED BLOOD COUNT 4.86 10^6/uL (4.00-5.40); WHITE BLOOD COUNT 7.6 10^3/uL (4.0-10.0)
[2019-02-12] MEDS ORDERED: HALO5TA (13:40)
[2019-02-12] MEDS ORDERED: BENZ2TAB5 PO (13:40)
[2019-02-12] MEDS ORDERED: AMPH30CA PO (13:40)
[2019-02-12] MEDS ORDERED: BUPR1FIL3 SL (13:40)
[2019-02-12 13:43] LABS: HCG, SERUM QUALITATIVE NEGATIVE (NEGATIVE)
[2019-02-12 13:53] LABS: ACETAMINOPHEN LEVEL < 2.0 UG/ML (10.0-30.0); ALT/SGPT 29 U/L (12-78); BILIRUBIN,DIRECT 0.1 MG/DL (0.0-0.2); BILIRUBIN,TOTAL 0.4 MG/DL (0.2-1.0); BLOOD UREA NITROGEN 13 MG/DL (7-18); CALCIUM LEVEL 8.8 MG/DL (8.5-10.1); CARBON DIOXIDE LEVEL 25 MEQ/L (21-32); CHLORIDE LEVEL 107 MEQ/L (98-107); CREATININE FOR GFR 0.67 MG/DL (0.55-1.30); ETHYL ALCOHOL (ETHANOL) < 0.003 % (0.000-0.010); GLOMERULAR FILTRATION RATE > 60.0 (>60); GLUCOSE, FASTING 108 MG/DL (70-100); POTASSIUM SERUM 3.9 MEQ/L (3.5-5.1); SALICYLATE LEVEL 3.3 MG/DL (5.0-30.0); SODIUM LEVEL 140 MEQ/L (136-145); TOTAL PROTEIN 7.7 GM/DL (6.4-8.2)
[2019-02-12 14:08] LABS: AMPHETAMINES LEVEL URINE POSITIVE (NEGATIVE); BARBITURATES URINE NEGATIVE (NEGATIVE); BENZODIAZEPINES URINE NEGATIVE (NEGATIVE); CANNABINOIDS URINE NEGATIVE (NEGATIVE); COCAINE METABOLITE URINE NEGATIVE (NEGATIVE); METHADONE URINE NEGATIVE (NEGATIVE); OPIATES URINE NEGATIVE (NEGATIVE); PHENCYCLIDINE URINE NEGATIVE (NEGATIVE)
[2019-02-12] MEDS ORDERED: VENL75TA2 PO (16:53)
[2019-02-12] MEDS ORDERED: PHARMACY COMMENT (16:58)
[2019-02-12] MEDS ORDERED: ACETAMINOPHEN TAB 650MG DOSE (2X325MG) PO PRN (19:00)
[2019-02-12] MEDS ORDERED: MOM 30ML SUSPENSION UDC PO PRN (19:00)
[2019-02-12] MEDS ORDERED: MAALOX 30 ML SUSP *UDC PO PRN (19:00)
[2019-02-12 20:23] VITALS: BP 116/79
[2019-02-12] MEDS: traZODone 100 MG TAB PO PRN (20:42)
[2019-02-13 06:39] VITALS: BP 111/54
[2019-02-13] MEDS: VENLAFAXINE 37.5 MG TAB PO SCH (09:00)
[2019-02-13] MEDS ORDERED: BUPRENORPHINE/NALOXONE 8-2MG SUBLINGUAL TABLET(SUBOXONE) SL ONE (10:00)
--- NOTE | 2019-02-13 11:32 | MHHPEPDOC ---
General Date Of Admission: Feb 12, 2019 Legal Status: 9.39 Chief Complaint "I'm feeling depressed and suicidal." History of Present Illness HISTORY OF THE PRESENT ILLNESS: Patient is a 28 -year-old , female, with a psych history of depression, polysubstance abuse, and ADHD and multiple admits [facility] in the past with last August 2016 who self-presented to the ED stating that she was dehydrated and needed fluids and needed admission to [facility] because she was depressed with suicidal ideation and no specific plan due to having limits supports in the area as she lives a lone and her mother lives in [place] per ED. Stated that her outpatient provider Dr. Costa has been weaning her off her prescription of haldol due to her stating it made her feel more depressed per ED. Per ED she was lethargic, sleepy, and mildly irritable when see there. This am nurse called pt's pharmacy, [facility], to verify her suboxone dose and pharmacy told her it was last filled in November as prescription was stopped due to discovery of pt attempting to get suboxone from multiple pharmacy's and that it is currently administered out thru [facility]. [facility] pharmacy called by nurse and pt's last suboxone Rx given 01/19/19. Psychiatric Review of Systems Depression (2 or more weeks): depressed mood, insomnia/hypersomnia (insomnia), difficulty concentrating, suicidal thoughts Ginna (4 or more days of): denies Psychosis: denies PTSD: denies Anxiety: situational anxiety, stressor related anxiety Anxiety/ 6 months or more of: easily fatigued, difficulty concentrating, irritability, sleep disturbance, personality cluster A,BC (b) Past Psychiatric History Previous Psychiatric Diagnosis: depression, ADHD as a child, and polysubstance use d/o. Previous Psychiatric Admissions: 4 previous admits [facility] for depression and substance abuse, last August 2016 Suicide Attempts: denies Psychiatric Follow-up: psychiatrist Dr. Costa, therapist Marina Fields, Dr. Manley for suboxone Rx, PCP Dr. Cifuentes Psychiatric medications: suboxone, gabapentin, adderal, cogentin, effexor, haldol Past Medical History Medical Problems hypothyroidism. Head Injury: No Hospitalizations: Yes Surgeries: Yes (tonsillectomy and myrogotomy) Family Medical/Psychiatric HX Medical Problems noncontributory Psychiatric Disorders: Yes (mother - depression) Addiction: No Suicide Attemps/Completions: No Addiction History nicotine, amphetamines (utox positive), opioids (Rx suboxone maintenance; report by Pharmacy she has been trying to get at multiple Pharmacies ([facility] and [facility])), heroin (states she's been clean 1yr on suboxone maintenance) Social History Childhood: Born and raised in [place], 2 parent home, good childhood. Only child. 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 Social Support: mother in [place], aunt that lives in [place] Legal: currently on parole for possession of a weapon in 2017 Marital: single, never , no kids Mental Status Examination General Appearance: well groomed, appears stated age, hospital scubs/clothing, other (vibrant red/maksim hair) Build: average Demeanor: average Eye Contact: average Activity: average Behavior: cooperative Speech: clear, spontaneous, reg/rate,rhythm,volume Mood: depressed Mood "ok" Affect: full, congruent Thought Process: logical/linear, depressed, intact Thought Content (Delusions): none reported, denies SI, HI, AVH Thought Content (Other): none reported Thought Content (Aggressive): none reported Perception (Hallucinations): none reported Perception (Other): none reported Cognition (Impairment of): none reported Cognition(Intelligence Est.): average Oriented: Awake, Alert, Oriented times three Insight: fair Judgment: Fair Psychosis: Denies Diagnoses Major depressive d/o -moderate, recurrent, w/o psychosis 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 States she believes the haldol she was started on in Rehab (d/c 1-2 wks ago, states she did it for parole rather than b/c she was using substances) and it made her feel more depressed so she stated taking herself off it and since she hasn't taken any today she feels better and is no longer tired thru out the day due to the dr talley. States she tolerating the rest of her outpatient medications well and feels they're beneficial. Denies she was pharmacy shopping as states her suboxone Rx accidently got called into [facility] which "I never use" early. States she usually gets her suboxone and the rest of her medications from [facility]. Denies SI/HI, hallucinations, delusions. States she feels safe her. Initial Treatment Plan 1. Patient was admitted on a 9.39 status. 2. Complete history was obtained. 3. With patients permission, family will be contacted and database will be expanded. 4. Patients medication regimen will be reviewed and changed accordingly. 5. Patient will be provided with protected environment. 6. Patient will be treated with individual, group, and milieu therapies. 7. Patient will receive supportive psych-education. 8. Discharge planning will commence immediately. 9. Outpatient follow-up treatment will be strongly recommended. 10. The initial treatment plan will focus initially on: * Depression. * Risk for suicide. * Substance abuse. 11. d/c haldol, resume all other outpatient medications. ESTIMATED LENGTH OF STAY: 5-7 DAYS. TIME SPENT COUNSELING AND COORDINATING INITIAL CARE: 60 minutes. Vital Signs Vital Signs Date Time Temp Pulse Resp B/P (MAP) Pulse Ox O2 Delivery O2 Flow Rate FiO2 02/13/19 06:39 97.4 72 12 111/54 (73) 02/12/19 20:23 98 02/12/19 19:46 Room Air Laboratory Data 24H Labs Laboratory Tests 2 02/12/19 12:59: Urine Amphetamines Screen POSITIVEH, Urine Benzodiazepines Screen NEGATIVE, Urine Opiates Screen NEGATIVE, Urine Methadone Screen NEGATIVE, Urine Barbiturates Screen NEGATIVE, Urine Phencyclidine Screen NEGATIVE, Urine Cocaine Metabolite Screen NEGATIVE, Urine Cannabinoids Screen NEGATIVE 02/12/19 13:05: Nucleated Red Blood Cells % (auto) 0.0, Anion Gap 8, Glomerular Filtration Rate > 60.0, Calcium Level 8.8, Aspartate Amino Transf (AST/SGOT) 19, Alanine Aminotransferase (ALT/SGPT) 29, Alkaline Phosphatase 87, Total Bilirubin 0.4, Direct Bilirubin 0.1, Total Protein 7.7, Albumin 4.0, Albumin/Globulin Ratio 1.08, Thyroid Stimulating Hormone (TSH) 1.360, Human Chorionic Gonadotropin, Qual NEGATIVE, Salicylates Level 3.3L, Acetaminophen Level < 2.0L, Ethyl Alcohol Level < 0.003 CBC/BMP Laboratory Tests 02/12/19 13:05 Red Blood Count 4.86, Mean Corpuscular Volume 84.4, Mean Corpuscular Hemoglobin 28.4, Mean Corpuscular Hemoglobin Concent 33.7, Red Cell Distribution Width 12.6 Medications Scheduled Benztropine Mesylate (Benztropine Mesylate) 2 Mg Tablet, 2 MG PO QHS, (Reported) Buprenorphine HCl/Naloxone HCl (Buprenor-Nalox 12-3 mg Sl Film) 1 Each Film, 1 FILM SL DAILY, (Reported) Dextroamphetamine/Amphetamine (Dextroamp-Amphet ER 30 mg Cap) 30 Mg Cap.er.24h, 30 MG PO DAILY, (Reported) Gabapentin (Neurontin) 600 Mg Tab, 600 MG PO TID, (Reported) Levothyroxine Sodium (Synthroid) 50 Mcg Tab, 50 MCG PO DAILY, (Reported) 100 MCG FILLED AT PHARMACY ON 07/05/18. PATIENT STATES SHE TAKES 50MCG DAILY Trazodone HCl (Trazodone HCl) 100 Mg Tab, 100 MG PO QHS, (Reported) THIS HAS NOT BEEN FILLED BY PHARMACY SINCE 10/2018 Venlafaxine HCl (Venlafaxine HCl) 75 Mg Tablet, 225 MG PO QHS, (Reported) Miscellaneous Medications [Pharmacy Comment] , (Reported) VERIFIED MEDICATIONS WITH [facility] Allergies Coded Allergies: fluconazole (Verified Allergy, Mild, SOB, 02/10/19) CARLA TURNER DO Feb 13, 2019 11:28 am
[2019-02-13 14:21] LABS: HEMATOCRIT 39.7 % (36.0-47.0); HEMOGLOBIN 13.6 g/dl (12.0-15.5); MEAN CORPUSCULAR HEMOGLOBIN 28.8 pg (27.0-33.0); MEAN CORPUSCULAR HGB CONC 34.3 g/dl (32.0-36.5); MEAN CORPUSCULAR VOLUME 83.9 fl (80.0-96.0); PLATELET COUNT, AUTOMATED 263 10^3/uL (150-450); RED BLOOD COUNT 4.73 10^6/uL (4.00-5.40); WHITE BLOOD COUNT 5.1 10^3/uL (4.0-10.0)
[2019-02-13 14:41] LABS: BLOOD UREA NITROGEN 9 MG/DL (7-18); CALCIUM LEVEL 9.3 MG/DL (8.5-10.1); CARBON DIOXIDE LEVEL 28 MEQ/L (21-32); CHLORIDE LEVEL 107 MEQ/L (98-107); CREATININE FOR GFR 0.65 MG/DL (0.55-1.30); GLOMERULAR FILTRATION RATE > 60.0 (>60); GLUCOSE, FASTING 117 MG/DL (70-100); LIPASE 114 U/L (73-393); POTASSIUM SERUM 3.5 MEQ/L (3.5-5.1); SODIUM LEVEL 139 MEQ/L (136-145)
[2019-02-13 18:00] VITALS: BP 92/56
--- NOTE | 2019-02-13 20:07 | HPEPDOC ---
General Date of Admission Feb 12, 2019 at 18:46 Date of Service: Feb 13, 2019 Chief Complaint The patient is a 28-year-old female admitted with a reason for visit of Unspecified Depressive D/O. History of Present Illness 28-year-old female with past medical history of psych disorder was admitted to the psychiatric unit for inpatient stabilization. At this time, she denies any complaint of fevers, chills, chest pain, palpitations, abdominal pain. However, the patient does endorse that she has not been eating much because of her underlying mood. She denies any complaints of abdominal pain, and notes that she has been drinking water and soda but not much else. States that she has not had a bowel movement several days because she has not been eating. States that she is passing flatus without any issues. The hospitalist service has been consulted for medical management. Home Medications Scheduled Benztropine Mesylate (Benztropine Mesylate) 2 Mg Tablet, 2 MG PO QHS, (Reported) Buprenorphine HCl/Naloxone HCl (Buprenor-Nalox 12-3 mg Sl Film) 1 Each Film, 1 FILM SL DAILY, (Reported) Dextroamphetamine/Amphetamine (Dextroamp-Amphet ER 30 mg Cap) 30 Mg Cap.er.24h, 30 MG PO DAILY, (Reported) Gabapentin (Neurontin) 600 Mg Tab, 600 MG PO TID, (Reported) Levothyroxine Sodium (Synthroid) 50 Mcg Tab, 50 MCG PO DAILY, (Reported) 100 MCG FILLED AT PHARMACY ON 07/05/18. PATIENT STATES SHE TAKES 50MCG DAILY Trazodone HCl (Trazodone HCl) 100 Mg Tab, 100 MG PO QHS, (Reported) THIS HAS NOT BEEN FILLED BY PHARMACY SINCE 10/2018 Venlafaxine HCl (Venlafaxine HCl) 75 Mg Tablet, 225 MG PO QHS, (Reported) Miscellaneous Medications [Pharmacy Comment] , (Reported) VERIFIED MEDICATIONS WITH [facility] Allergies Coded Allergies: fluconazole (Verified Allergy, Mild, SOB, 02/10/19) Past Medical History Medical History As noted. Social History * Smoker: current smoker (smokes 1 pack per day of tobacco for the last 8 years) Alcohol: Denies Drugs: other (currently on Suboxone) Review of Systems Other systems 10 point review of systems negative unless otherwise specified in HPI. Physical Examination General Exam: Positive: Alert, Cooperative, No Acute Distress ENT Exam: Positive: Atraumatic, Mucous membr. moist/pink Neck Exam: Negative: JVD Chest Exam: Positive: Clear to auscultation, Normal air movement Heart Exam: Positive: Rate Normal, Normal S1, Normal S2 Abdomen Exam: Positive: Soft; Negative: Tenderness Extremity Exam: Negative: Tenderness, Swelling Psych Exam: Positive: Oriented x 3 Vital Signs Vital Signs Date Time Temp Pulse Resp B/P (MAP) Pulse Ox O2 Delivery O2 Flow Rate FiO2 02/13/19 18:00 97.7 60 16 92/56 (68) 02/12/19 20:23 98 02/12/19 19:46 Room Air Laboratory Data Labs 24H Laboratory Tests 2 02/13/19 13:48: Nucleated Red Blood Cells % (auto) 0.0, Anion Gap 4L, Glomerular Filtration Rate > 60.0, Blood Urea Nitrogen 9, Creatinine 0.65, Sodium Level 139, Potassium Level 3.5, Chloride Level 107, Carbon Dioxide Level 28, Calcium Level 9.3, Lipase 114 CBC/BMP Laboratory Tests 02/13/19 13:48 Red Blood Count 4.73, Mean Corpuscular Volume 83.9, Mean Corpuscular Hemoglobin 28.8, Mean Corpuscular Hemoglobin Concent 34.3, Red Cell Distribution Width 12.6, Calcium Level 9.3 Plan / VTE VTE Prophylaxis Ordered?: No VTE Exclusion Mechanical Proph: Low Risk for VTE Plan Plan Psych Disorder Management as per Psychiatry Decreased Appetite Patient encouraged to take PO diet, no abd pain noted Notes that she hasn't had a BM because she hasn't been eating much but has been passing flatus However, taking in PO fluids without issue DVT Prophylaxis Ambulation Encouraged EMILY MARVIN MD Feb 13, 2019 20:07
[2019-02-13] MEDS: traZODone 100 MG TAB PO PRN (20:54)
[2019-02-14 06:33] VITALS: BP 91/63
[2019-02-14] MEDS: VENLAFAXINE 37.5 MG TAB PO SCH (08:09)
[2019-02-14] MEDS: BUPRENORPHINE/NALOXONE 8-2MG SUBLINGUAL TABLET(SUBOXONE) SL SCH (08:10)
--- NOTE | 2019-02-14 09:12 | MHIPNPDOC ---
[facility] Progress Note Progress Note DATE OF SERVICE: 02/14/19 HISTORY: Patient is a 28 -year-old , female, with a psych history of depression, polysubstance abuse, and ADHD and multiple admits [facility] in the past with last August 2016 who self-presented to the ED stating that she was dehydrated and needed fluids and needed admission to [facility] because she was depressed with suicidal ideation and no specific plan due to having limits supports in the area as she lives a lone and her mother lives in [place] per ED. Stated that her outpatient provider Dr. Costa has been weaning her off her prescription of haldol due to her stating it made her feel more depressed per ED. Per ED she was lethargic, sleepy, and mildly irritable when see there. This am nurse called pt's pharmacy, [facility], to verify her suboxone dose and pharmacy told her it was last filled in November as prescription was stopped due to discovery of pt attempting to get suboxone from multiple pharmacy's and that it is currently administered out thru [facility]. [facility] pharmacy called by nurse and pt's last suboxone Rx given 01/19/19. VITAL SIGNS: See below. NEW TEST RESULTS: See below. CURRENT MEDICATIONS: See below. MENTAL STATUS EXAMINATION: General Appearance: well groomed, appears stated age, hospital scrubs/clothing, other (vibrant red/maksim hair) Build: average Demeanor: average Eye Contact: average Activity: average Behavior: cooperative Speech: clear, spontaneous, reg/rate,rhythm,volume Mood: less depressed Mood "ok" Affect: full, congruent Thought Process: logical/linear, less depressed, intact Thought Content (Delusions): none reported, denies SI, HI, AVH Thought Content (Other): none reported Thought Content (Aggressive): none reported Perception (Hallucinations): none reported Perception (Other): none reported Cognition (Impairment of): none reported Cognition(Intelligence Est.): average Oriented: Awake, Alert, Oriented times three Insight: fair Judgment: Fair Psychosis: Denies DIAGNOSES: Major depressive d/o -moderate, recurrent, w/o psychosis 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 States she tolerating the rest of her outpatient medications well and feels they're beneficial. Denies she was pharmacy shopping as states her suboxone Rx accidently got called into [facility] pharmacy which "I never use" early. States she usually gets her suboxone and the rest of her medications from [facility]. Is attending groups and finding them beneficial. Denies SI/HI, hallucinations, delusions. States she feels safe here. MANAGEMENT PLAN: continue plan. add zofran prn nausea zofran 4mg q4hr prn nausea Suboxone 8/2mg 1.5 tab DAILY SL Trazodone 100 mg QHSP PRN PO INSOMNIA Effexor 225 mg DAILY TIME SPENT: 30 minutes. Vital Signs Vital Signs Date Time Temp Pulse Resp B/P (MAP) Pulse Ox O2 Delivery O2 Flow Rate FiO2 02/14/19 06:33 97.7 58 12 91/63 (72) 02/12/19 20:23 98 02/12/19 19:46 Room Air Laboratory Data 24H Labs Laboratory Tests 2 02/13/19 13:48: Nucleated Red Blood Cells % (auto) 0.0, Anion Gap 4L, Glomerular Filtration Rate > 60.0, Blood Urea Nitrogen 9, Creatinine 0.65, Sodium Level 139, Potassium Level 3.5, Chloride Level 107, Carbon Dioxide Level 28, Calcium Level 9.3, Lipase 114 CBC/BMP Laboratory Tests 02/13/19 13:48 Red Blood Count 4.73, Mean Corpuscular Volume 83.9, Mean Corpuscular Hemoglobin 28.8, Mean Corpuscular Hemoglobin Concent 34.3, Red Cell Distribution Width 1 2.6, Calcium Level 9.3 Current Medications Current Medications Acetaminophen (Tylenol Tab) 650 mg Q6HP PRN PO HEADACHE or DISCOMFORT; Start 02/12/19 at 19:00 Al Hydrox/Mg Hydrox/Simethicone (Mylanta) 30 ml Q4HP PRN PO HEARTBURN/INDIGESTION; Start 02/12/19 at 19:00 Buprenorphine/ Naloxone (Suboxone 8/2mg) 1.5 tab DAILY SL Last administered on 02/14/19at 08:10; Start 02/14/19 at 09:00 Home Med (Med Rec Complete!) ASDIRECTED XX ; Start 7/22/19 at 17:00; Stop 02/12/19 at 17:05; Status DC Magnesium Hydroxide (Milk Of Magnesia) 30 ml DAILYPRN PRN PO CONSTIPATION; Start 02/12/19 at 19:00 Trazodone HCl (Desyrel) 100 mg QHSP PRN PO INSOMNIA Last administered on 02/13/19at 20:54; Start 02/12/19 at 19:00 Venlafaxine HCl (Effexor) 75 mg DAILY PO Last administered on 02/14/19at 08:09; Start 02/13/19 at 09:00 Allergies Coded Allergies: fluconazole (Verified Allergy, Mild, SOB, 02/10/19) CARLA TURNER DO Feb 14, 2019 9:12 am
[2019-02-14] MEDS: ONDANSETRON 4 MG TAB (S0181) PO PRN ×2 (10:10→17:11)
[2019-02-14] MEDS ORDERED: VENLAFAXINE 37.5 MG TAB PO ONE (11:15)
[2019-02-14] MEDS ORDERED: PILL CUTTER 1 EACH XX PRN (12:00)
[2019-02-14 18:00] VITALS: BP 94/56
[2019-02-14] MEDS: traZODone 100 MG TAB PO PRN (21:00)
[2019-02-15 06:32] VITALS: BP 109/53
[2019-02-15] MEDS ORDERED: VENLAFAXINE 37.5 MG TAB PO SCH (07:00)
[2019-02-15] MEDS: BUPRENORPHINE/NALOXONE 8-2MG SUBLINGUAL TABLET(SUBOXONE) SL SCH (08:14)
[2019-02-15] MEDS: ONDANSETRON 4 MG TAB (S0181) PO PRN ×2 (08:40→17:17)
[2019-02-15] MEDS: VENLAFAXINE 37.5 MG TAB PO SCH (08:53)
--- NOTE | 2019-02-15 09:59 | MHIPNPDOC ---
[facility] Progress Note Progress Note DATE OF SERVICE: 02/15/19 HISTORY: Patient is a 28 -year-old , female, with a psych history of depression, polysubstance abuse, and ADHD and multiple admits [facility] in the past w ith last August 2016 who self-presented to the ED stating that she was dehydrated and needed fluids and needed admission to [facility] because she was depressed with suicidal ideation and no specific plan due to having limits supports in the area as she lives a lone and her mother lives in [place] per ED. Stated that her outpatient provider Dr. Costa has been weaning her off her prescription of haldol due to her stating it made her feel more depressed per ED. Per ED she was lethargic, sleepy, and mildly irritable when see there. This am nurse called pt's pharmacy, [facility], to verify her suboxone dose and pharmacy told her it was last filled in November as prescription was stopped due to discovery of pt attempting to get suboxone from multiple pharmacy's and that it is currently administered out thru [facility]. [facility] pharmacy called by nurse and pt's last suboxone Rx given 01/19/19. VITAL SIGNS: See below. NEW TEST RESULTS: See below. CURRENT MEDICATIONS: See below. MENTAL STATUS EXAMINATION: General Appearance: well groomed, appears stated age, hospital scrubs/clothing, other (vibrant red/maksim hair) Build: average Demeanor: average Eye Contact: average Activity: average Behavior: cooperative Speech: clear, spontaneous, reg/rate,rhythm,volume Mood: less depressed Mood "good" Affect: full, congruent Thought Process: logical/linear, less depressed, intact Thought Content (Delusions): none reported, denies SI, HI, AVH Thought Content (Other): none reported Thought Content (Aggressive): none reported Perception (Hallucinations): none reported Perception (Other): none reported Cognition (Impairment of): none reported Cognition(Intelligence Est.): average Oriented: Awake, Alert, Oriented times three Insight: fair Judgment: Fair Psychosis: Denies DIAGNOSES: Major depressive d/o -moderate, recurrent, w/o psychosis 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 States she tolerating the rest of her outpatient medications well and feels they're beneficial. Denies she was pharmacy shopping as states her suboxone Rx accidently got called into [facility] which "I never use" early. States she usually gets her suboxone and the rest of her medications from [facility]. Asked us to call her doctor to confirm that he sent it to the wrong pharmacy when he last refilled her suboxo ne. States she's looking froward to her aunt visiting her later today. Is hopeful to go home soon. Is attending groups and finding them beneficial. Denies SI/HI, hallucinations, delusions. States she feels safe here. MANAGEMENT PLAN: continue plan. d/c home tomorrow zofran 4mg q4hr prn nausea Suboxone 8/2mg 1.5 tab DAILY SL Trazodone 100 mg QHSP PRN PO INSOMNIA Effexor 225 mg DAILY TIME SPENT: 30 minutes. Vital Signs Vital Signs Date Time Temp Pulse Resp B/P (MAP) Pulse Ox O2 Delivery O2 Flow Rate FiO2 02/15/19 06:32 98.0 60 12 109/53 (71) 02/12/19 20:23 98 02/12/19 19:46 Room Air Current Medications Current Medications Acetaminophen (Tylenol Tab) 650 mg Q6HP PRN PO HEADACHE or DISCOMFORT; Start 02/12/19 at 19:00 Al Hydrox/Mg Hydrox/Simethicone (Mylanta) 30 ml Q4HP PRN PO HEARTBURN/INDIGESTION; Start 02/12/19 at 19:00 Buprenorphine/ Naloxone (Suboxone 8/2mg) 1.5 tab DAILY SL Last administered on 02/15/19at 08:14; Start 02/14/19 at 09:00 Home Med (Med Rec Complete!) ASDIRECTED XX ; Start 02/12/19 at 17:00; Stop 02/12/19 at 17:05; Status DC Magnesium Hydroxide (Milk Of Magnesia) 30 ml DAILYPRN PRN PO CONSTIPATION; Start 02/12/19 at 19:00 Miscellaneous (Unresolved Clarification Entry) SEE LABEL COMMENTS DAILY XX ; Start 02/14/19 at 09:00; Stop 02/15/19 at 08:40; Status DC Ondansetron HCl (Zofran) 4 mg Q4HP PRN PO NAUSEA OR VOMITING Last administered on 02/15/19at 08:40; Start 02/14/19 at 09:45 Trazodone HCl (Desyrel) 100 mg QHSP PRN PO INSOMNIA Last administered on 02/14/19at 21:00; Start 02/12/19 at 19:00 Venlafaxine HCl (Effexor) 75 mg DAILY PO Last administered on 02/14/19at 08:09; Start 02/13/19 at 09:00; Stop 02/14/19 at 09:46; Status DC Venlafaxine HCl (Effexor) 225 mg DAILY PO Last administered on 02/15/19at 08:53; Start 02/15/19 at 09:00 Venlafaxine HCl (Effexor) 225 mg QHS PO ; Start 02/15/19 at 07:00; Stop 02/15/19 at 07:00; Status DC Allergies Coded Allergies: fluconazole (Verified Allergy, Mild, SOB, 02/10/19) CARLA TURNER DO Feb 15, 2019 9:30 am
[2019-02-15 18:00] VITALS: BP 112/71
[2019-02-15] MEDS: traZODone 100 MG TAB PO PRN (21:01)
[2019-02-16 06:46] VITALS: BP 114/59
[2019-02-16] MEDS: ONDANSETRON 4 MG TAB (S0181) PO PRN (08:17)
[2019-02-16] MEDS: BUPRENORPHINE/NALOXONE 8-2MG SUBLINGUAL TABLET(SUBOXONE) SL SCH (08:18)
[2019-02-16] MEDS: VENLAFAXINE 37.5 MG TAB PO SCH (08:18)
[2019-02-16] MEDS ORDERED: TRAZ-163 PO (08:42)
[2019-02-16] MEDS ORDERED: VENL75TA2 PO (08:42)
[2019-02-16] MEDS ORDERED: ONDA4TAB5 PO (08:42)
--- NOTE | 2019-02-16 08:44 | MHDSPDOC ---
[facility] Discharge Summary Discharge Summary DATE OF ADMISSION: Feb 12, 2019 at 6:46 pm DATE OF DISCHARGE: February 16, 2019 DISCHARGE DIAGNOSES: Major depressive d/o -moderate, recurrent, w/o psychosis opioid use d/o in early remission Hx of ADHD REASON FOR ADMISSION:Patient is a 28 -year-old , female, with a psych history of depression, polysubstance abuse, and ADHD and multiple admits [facility] in the past with last August 2016 who self-presented to the ED stating that she was dehydrated and needed fluids and needed admission to [facility] because she was depressed with suicidal ideation and no specific plan due to having limits supports in the area as she lives a lone and her mother lives in [place] per ED. Stated that her outpatient provider Dr. Costa has been weaning her off her prescription of haldol due to her stating it made her feel more depressed per ED. Per ED she was lethargic, sleepy, and mildly irritable when see there. This am nurse [facility], to verify her suboxone dose and pharmacy told her it was last filled in November as prescription was stopped due to discovery of pt attempting to get suboxone from multiple pharmacy's and that it is currently administered out thru [facility]. [place] called by nurse and pt's last suboxone Rx given 01/19/19. CONSULTANTS INVOLVED: none TREATMENT AND PROGRESS ON THE UNIT :Pt was admitted to [facility], seen for psychiatric assessment and restarted on her outpatient medications suboxone 2/ 8mg 1.5 tab daily, effexor 225mg daily. She was provided zofran 4mg q4hr prn nausea and trazodone 100mg qhs prn insomnia. her outpatient haldol and cogentin were discontinued due causing the pt to feel depressed and tired. Her outpatient adderall xr was held thru hospitalization. Pt found her medications beneficial and tolerated them well. She attended groups daily during her stay. Her symptoms improved with treatment. On day of discharge she denied depression, anxiety, insomnia, SI/HI, hallucinations, delusions. She was discharged home with her aunt with follow-up at [facility]. She felt safe for discharge. DISCHARGE ASSESSMENT: Pt seen today and states she feels "good" today and is looking forward to being discharged home today with her aunt excited to seee her 2 cats at home. States she tolerating medications well and feels they're beneficial. Denies she was pharmacy shopping as states her suboxone Rx accidently got called into [facility] which "I never use" early. States she usually gets her suboxone and the rest of her medications from [facility]. Asked us to call her doctor to confirm that he sent it to the wrong pharmacy when he last refilled her suboxone. Is attending groups and finding them beneficial. Denies depression, anxiety, insomnia, SI/HI, hallucinations, delusions. States she feels safe to be discharged home. MENTAL STATUS EXAMINATION ON DISCHARGE: General Appearance: well groomed, appears stated age, hospital scrubs/clothing, other (vibrant red/maksim hair) Build: average Demeanor: average Eye Contact: average Activity: average Behavior: cooperative Speech: clear, spontaneous, reg/rate,rhythm,volume Mood: euthymic, full, bright Mood "good" Affect: full, congruent Thought Process: logical/linear, less depressed, intact Thought Content (Delusions): none reported, denies SI, HI, AVH Thought Content (Other): none reported Thought Content (Aggressive): none reported Perception (Hallucinations): none reported Perception (Other): none reported Cognition (Impairment of): none reported Cognition(Intelligence Est.): average Oriented: Awake, Alert, Oriented times three Insight: good Judgment: good Psychosis: Denies MEDICATIONS ON DISCHARGE: zofran 4mg q4hr prn nausea Suboxone 8/2mg 1.5 tab DAILY SL Trazodone 100 mg QHSP PRN PO INSOMNIA Effexor 225 mg DAILY PLAN/FOLLOWUP ARRANGEMENTS: D/c home with follow-up at [facility]. The amount of time spent in the coordination of care for this patient was approximately 30 minutes. Vital Signs/I&Os Vital Signs Date Time Temp Pulse Resp B/P (MAP) Pulse Ox O2 Delivery O2 Flow Rate FiO2 02/16/19 06:46 98.9 54 16 114/59 (77) 02/12/19 20:23 98 02/12/19 19:46 Room Air Medications Scheduled Benztropine Mesylate (Benztropine Mesylate) 2 Mg Tablet, 2 MG PO QHS, (Reported) Buprenorphine HCl/Naloxone HCl (Buprenor-Nalox 12-3 mg Sl Film) 1 Each Film, 1 FILM SL DAILY, (Reported) Dextroamphetamine/Amphetamine (Dextroamp-Amphet ER 30 mg Cap) 30 Mg Cap.er.24h, 30 MG PO DAILY, (Reported) Gabapentin (Neurontin) 600 Mg Tab, 600 MG PO TID, (Reported) Levothyroxine Sodium (Synthroid) 50 Mcg Tab, 50 MCG PO DAILY, (Reported) 100 MCG FILLED AT PHARMACY ON 07/05/18. PATIENT STATES SHE TAKES 50MCG DAILY Trazodone HCl (Trazodone HCl) 100 Mg Tab, 100 MG PO QHS, (Reported) THIS HAS NOT BEEN FILLED BY PHARMACY SINCE 10/2018 Venlafaxine HCl (Venlafaxine HCl) 75 Mg Tablet, 225 MG PO QHS, (Reported) Miscellaneous Medications [Pharmacy Comment] , (Reported) VERIFIED MEDICATIONS WITH [facility] Allergies Coded Allergies: fluconazole (Verified Allergy, Mild, SOB, 02/10/19) CARLA TURNER DO Feb 16, 2019 8:43 am
== END 2019-02-16 10:45 | disposition home or self-care (01) | DRG 751 ==
LOC: M ED 12:26 → M ED INP 18:46 → M PSY 19:51
PROVIDERS: ADMIT Psychiatry & Neurology Psychiatry; ATTEND Psychiatry & Neurology Psychiatry
DX: F33.1 Major depressive disorder, recurrent, moderate (principal); R45.851 Suicidal ideations; F11.90 Opioid use, unspecified, uncomplicated; F90.9 Attention-deficit hyperactivity disorder, unspecified type; Z79.899 Other long term (current) drug therapy; Z88.8 Allergy status to other drugs, medicaments and biological substances; F17.200 Nicotine dependence, unspecified, uncomplicated

== ENCOUNTER 2019-03-16 09:00 | Outpatient (RCR) | payer OTHER ==
[~2019-03-16 09:00] MED LIST changes: +AMPH30CA PO; +BENZ2TAB5 PO; +BUPR1FIL3 SL; +HALO5TA; +ONDA4TAB5 PO; +PHARMACY COMMENT; +VENL75TA2 PO
== END 2019-03-24 ==
LOC: M OUTALCOH 09:00
PROVIDERS: ATTEND Psychiatry & Neurology Psychiatry
DX: F11.20 Opioid dependence, uncomplicated (principal); F15.10 Other stimulant abuse, uncomplicated; F17.200 Nicotine dependence, unspecified, uncomplicated

== ENCOUNTER 2019-06-08 02:03 | Emergency (ER) | payer OTHER ==
[~2019-06-08] VITALS: Ht 157.5 cm; Wt 68.2 kg
[~2019-06-08 02:03] MED LIST changes: +AMPH1CAP5 PO; -AMPH30CA PO
[2019-06-08] MEDS ORDERED: ATIV1TAB10 PO (02:19)
[2019-06-08] MEDS ORDERED: LORazepam 2 MG/ML VIAL (J2060) IV STA (02:32)
[2019-06-08] MEDS ORDERED: NS 1,000 ML IV ONE (02:45)
[2019-06-08 03:06] LABS: BASO % 0.3 % (0.0-1.0); EOS % 0.4 % (0.0-3.0); HEMATOCRIT 40.6 % (36.0-47.0); HEMOGLOBIN 13.8 g/dl (12.0-15.5); LYMPH % 14.1 % (24.0-44.0); MEAN CORPUSCULAR HEMOGLOBIN 28.2 pg (27.0-33.0); MEAN CORPUSCULAR VOLUME 82.9 fl (80.0-96.0); MONO # 0.7 10^3/uL (0.0-0.8); MONO % 10.6 % (0.0-5.0); NEUTROPHILS # 5.1 10^3/uL (1.5-8.5); NEUTROPHILS % 74.5 % (36.0-66.0); PLATELET COUNT, AUTOMATED 195 10^3/uL (150-450); WHITE BLOOD COUNT 6.9 10^3/uL (4.0-10.0)
[2019-06-08 03:41] LABS: BILIRUBIN,DIRECT 0.1 MG/DL (0.0-0.2); BILIRUBIN,TOTAL 1.2 MG/DL (0.2-1.0); TOTAL PROTEIN 7.7 GM/DL (6.4-8.2)
--- NOTE | 2019-06-08 03:47 | REPVR ---
PROCEDURE INFORMATION: Exam: US Pelvis Complete, Transabdominal and US Pelvis, Transvaginal Exam date and time: 06/08/2019 3:09 AM Clinical history: 28 years old, female; Pelvic pain; Additional info: Left adnexal pain TECHNIQUE: Imaging protocol: Real-time transabdominal and transvaginal pelvic ultrasound (complete) with image documentation. Transvaginal imaging was used for better evaluation of the endometrium and adnexa. COMPARISON: US PELVIC NON-OB COMPLETE 12/18/2013 1:20 PM FINDINGS: Uterus/cervix: The uterus measures 6.9 cm in its cephalocaudad dimension and 2.9 x 3.7 cm in its AP and lateral dimensions. The endometrium measures 5 mm. Ovoid cyst in the lower uterine segment or cervix. Right adnexa: The right ovary measures 2.5 x 2.5 x 2.8 cm and demonstrates small follicles and arterial blood flow. Left adnexa: The left ovary measures 2.9 x 2.6 x 2.0 cm and demonstrates small follicles and arterial blood flow. Free fluid: None. Bladder: The urinary bladder is normal. IMPRESSION: Negative pelvic sonogram. Electronically signed by: Justin Knapp On 06/08/2019 03:46:42 AM
[2019-06-08 05:10] VITALS: BP 138/91
== END 2019-06-08 05:12 | disposition home or self-care (01) ==
LOC: M ED 02:03
DX: F41.1 Generalized anxiety disorder (principal); R10.9 Unspecified abdominal pain; F11.10 Opioid abuse, uncomplicated; F17.210 Nicotine dependence, cigarettes, uncomplicated; Z88.2 Allergy status to sulfonamides; Z79.52 Long term (current) use of systemic steroids; Z79.83 Long term (current) use of bisphosphonates; Z79.899 Other long term (current) drug therapy
CPT/HCPCS: 76830; 76856; 80047; 80076; 81001; 83690; 84702; 85025; 93041; 93976; 96361; 96374; 99284; J2060

== ENCOUNTER → 2019-11-09 | Outpatient (CLI) | payer OTHER ==
[~2019-11-09] MED LIST changes: +ATIV1TAB10 PO; +ONDA-83 PO; -ONDA4TAB5 PO; -TRAZ-163 PO; +TRAZ-257 PO
[2019-11-09 13:55] LABS: BASO % 0.7 % (0.0-1.0); EOS # 0.2 10^3/uL (0.0-0.5); EOS % 4.4 % (0.0-3.0); HEMATOCRIT 43.2 % (36.0-47.0); HEMOGLOBIN 14.7 g/dl (12.0-15.5); LYMPH # 2.1 10^3/uL (1.5-5.0); MEAN CORPUSCULAR HEMOGLOBIN 28.8 pg (27.0-33.0); MEAN CORPUSCULAR VOLUME 84.5 fl (80.0-96.0); MONO # 0.4 10^3/uL (0.0-0.8); MONO % 8.2 % (0.0-5.0); NEUTROPHILS # 1.8 10^3/uL (1.5-8.5); NEUTROPHILS % 40.5 % (36.0-66.0); PLATELET COUNT, AUTOMATED 262 10^3/uL (150-450); RED BLOOD COUNT 5.11 10^6/uL (4.00-5.40); WHITE BLOOD COUNT 4.5 10^3/uL (4.0-10.0)
[2019-11-09 14:15] LABS: ALBUMIN 3.7 GM/DL (3.2-5.2); ALT/SGPT 44 U/L (12-78); BILIRUBIN,DIRECT < 0.1 MG/DL (0.0-0.2); BILIRUBIN,TOTAL 0.5 MG/DL (0.2-1.0); ESTRADIOL 32.7 PG/ML; FOLLICLE STIMULATING HORMONE 5.4 mIU/mL; TESTOSTERONE 26 NG/DL (14-76); TOTAL PROTEIN 7.2 GM/DL (6.4-8.2)
== END ==
LOC: M PLALAB 10:57
PROVIDERS: ATTEND Family Medicine Adult Medicine
DX: F19.10 Other psychoactive substance abuse, uncomplicated (principal); E03.9 Hypothyroidism, unspecified; F32.9 Major depressive disorder, single episode, unspecified; N92.6 Irregular menstruation, unspecified

== ENCOUNTER 2021-04-19 19:07 | Emergency (ER) | payer OTHER ==
[~2021-04-19] VITALS: Ht 157.5 cm; Wt 52.3 kg
[~2021-04-19 19:07] MED LIST changes: +MIRT-62 PO; -REME15TA PO
[2021-04-19] MEDS ORDERED: TETRACAINE 0.5% OPHTH SOLN 4ML OD ONE (20:25)
[2021-04-19] MEDS ORDERED: FLUORESCEIN OPHTH 1 MG STRIP OD ONE (20:50)
[2021-04-19] MEDS ORDERED: ERYTHROMYCIN OPHTH OINT OD ONE (21:35)
[2021-04-19] MEDS ORDERED: ERYTOIN8 OD (21:46)
[2021-04-19 21:55] VITALS: BP 112/63
== END 2021-04-19 22:04 | disposition home or self-care (01) ==
LOC: M ED 19:07
DX: H10.211 Acute toxic conjunctivitis, right eye (principal); H57.11 Ocular pain, right eye; T54.3X1A Toxic effect of corrosive alkalis and alkali-like substances, accidental (unintentional), initial encounter; Y92.9 Unspecified place or not applicable; Y93.E5 Activity, floor mopping and cleaning; Y99.0 Civilian activity done for income or pay; Z88.8 Allergy status to other drugs, medicaments and biological substances

== ENCOUNTER → 2022-07-21 | Outpatient (REF) | payer OTHER ==
[~2022-07-21] MED LIST changes: +ERYTOIN8 OD; -HALO5TA; +HALO5TAB33
[2022-07-21 17:09] LABS: APPEARANCE, URINE MANUAL CLEAR (CLEAR); BILIRUBIN, URINE MANUAL NEGATIVE (NEGATIVE); BLOOD URINE MANUAL NEGATIVE (NEGATIVE); COLOR, URINE MANUAL YELLOW (YELLOW); GLUCOSE, URINE (UA) MANUAL NEGATIVE (NEGATIVE); KETONE, URINE MANUAL NEGATIVE (NEGATIVE); LEUKOCYTE ESTERASE, URINE MAN NEGATIVE (NEGATIVE); NITRITE, URINE MANUAL NEGATIVE (NEGATIVE); PROTEIN, URINE MANUAL NEGATIVE (NEGATIVE); SPECIFIC GRAVITY,URINE MANUAL 1.015 (1.002-1.035); UROBILINOGEN, URINE MANUAL NORMAL (NORMAL)
[2022-07-21 18:44] LABS: GC DNA AMPLIFICATION NEGATIVE (NEGATIVE)
== END ==
LOC: M LAB REF 16:27
PROVIDERS: ATTEND Physician Assistant
DX: Z11.3 Encounter for screening for infections with a predominantly sexual mode of transmission (principal)